=== PATIENT | male | born 1975 | race American Indian/Alaskan Native ===

== ENCOUNTER 2018-02-04 02:08 | Inpatient (IN) | payer SELFPAY ==
[2018-02-04 02:38] LABS: ADD MAN DIFF? NO
[2018-02-04 02:41] LABS: BASO # 0.2 x10^3/uL (0.0-0.2); BASO % 3 % (0-3); EOS % 0 % (0-3); HEMATOCRIT 43.5 % (39.0-53.0); HEMOGLOBIN 15.4 g/dL (13.0-17.5); LYMPH # 1.6 x10^3/uL (1.0-4.8); LYMPH % 30 % (24-48); MEAN CORPUSCULAR HEMOGLOBIN 33 pg (25-35); MEAN CORPUSCULAR HGB CONC 36 g/dL (31-37); MEAN CORPUSCULAR VOLUME 93 fL (79-100); MONO # 0.3 x10^3/uL (0.0-1.1); MONO % 5 % (0-9); NEUT # 3.4 x10^3uL (1.8-7.7); NEUT % 62 % (31-73); PLATELET COUNT 206 x10^3/uL (140-400); RED CELL DISTRIBUTION WIDTH 15.7 % (11.5-14.5); WHITE BLOOD COUNT 5.5 x10^3/uL (4.0-11.0)
[2018-02-04] MEDS: IV NORMAL SALINE 1000ML BAG 1,000 ML IV ×6 (02:48→17:13)
[2018-02-04] MEDS: THIAMINE 100 MG in IV NORMAL SALINE 50ML 50 ML IV (02:49)
[2018-02-04 02:50] LABS: ANION GAP 20 (6-14); BLOOD UREA NITROGEN 15 mg/dL (8-26); BUN/CREATININE RATIO 25 (6-20); CALCIUM 8.4 mg/dL (8.5-10.1); CARBON DIOXIDE 22 mmol/L (21-32); CHLORIDE 99 mmol/L (98-107); CREATININE 0.6 mg/dL (0.7-1.3); GFR 149.2; GLUCOSE 90 mg/dL (70-99); POTASSIUM 3.3 mmol/L (3.5-5.1); SODIUM 141 mmol/L (136-145)
[2018-02-04 02:57] LABS: TROPONINI < 0.017 ng/mL (0.000-0.055)
[2018-02-04 02:58] LABS: ALBUMIN 4.4 g/dL (3.4-5.0); ALBUMIN/GLOBULIN RATIO 1.2 (1.0-1.7); ALK PHOS 65 U/L (46-116); ALT (SGPT) 98 U/L (16-63); AST (SGOT) 99 U/L (15-37); TOTAL BILIRUBIN 1.3 mg/dL (0.2-1.0); TOTAL PROTEIN 8.1 g/dL (6.4-8.2)
[2018-02-04 03:01] LABS: ACETAMIN < 2 mcg/ml (10-30); ETHANOL 327 mg/dL (0-10); SALIC < 2.8 mg/dL (2.8-20.0)
[2018-02-04 03:02] LABS: AMPHETAMINE/METHAMPHETAMINE POS (NEG); BARBITURATES NEG (NEG); BENZODIAZEPINES NEG (NEG); CANNABINOIDS NEG (NEG); COCAINE NEG (NEG); ETHANOL, URINE POS (NEG); METHADONE NEG (NEG); OPIATES NEG (NEG); PHENCYCLIDINE NEG (NEG)
[2018-02-04] MEDS: POTASSIUM CHLORIDE 20 MEQ TABLET.ER. PO (07:49)
[2018-02-04] MEDS ORDERED: ONDANSETRON PF 4 MG/2 ML VIAL. IV (09:15)
[2018-02-04] MEDS ORDERED: ACETAMINOPHEN 325 MG TABLET. PO (09:15)
[2018-02-04] MEDS: chlordiazePOXIDE HCL 25 MG CAPSULE PO ×3 (09:55→21:20)
[2018-02-04 16:48] LABS: MAGNESIUM 1.6 mg/dL (1.8-2.4)
[2018-02-04] MEDS: MULTIVIT INFUSN,ADULT 4,VIT K 10 ML, THIAMINE 100 MG, FOLIC ACID 1 MG in IV DEXTROSE 5 ... IV (17:22)
[2018-02-04 20:47] LABS: POC GLUCOSE 148 mg/dL (70-99)
[2018-02-05] MEDS: IV NORMAL SALINE 1000ML BAG 1,000 ML IV (03:31)
[2018-02-05 05:03] LABS: ADD MAN DIFF? NO
[2018-02-05 05:15] LABS: BASO % 1 % (0-3); EOS # 0.1 x10^3/uL (0.0-0.7); EOS % 3 % (0-3); HEMOGLOBIN 14.4 g/dL (13.0-17.5); LYMPH # 1.7 x10^3/uL (1.0-4.8); LYMPH % 36 % (24-48); MEAN CORPUSCULAR HEMOGLOBIN 33 pg (25-35); MEAN CORPUSCULAR HGB CONC 35 g/dL (31-37); MEAN CORPUSCULAR VOLUME 92 fL (79-100); MONO # 0.4 x10^3/uL (0.0-1.1); MONO % 9 % (0-9); NEUT # 2.5 x10^3uL (1.8-7.7); NEUT % 52 % (31-73); PLATELET COUNT 180 x10^3/uL (140-400); RED BLOOD COUNT 4.44 x10^6/uL (4.30-5.70); RED CELL DISTRIBUTION WIDTH 14.5 % (11.5-14.5); WHITE BLOOD COUNT 4.9 x10^3/uL (4.0-11.0)
[2018-02-05] MEDS: chlordiazePOXIDE HCL 25 MG CAPSULE PO ×3 (05:21→15:40)
[2018-02-05 05:24] LABS: ANION GAP 6 (6-14); BLOOD UREA NITROGEN 8 mg/dL (8-26); CALCIUM 7.8 mg/dL (8.5-10.1); CARBON DIOXIDE 29 mmol/L (21-32); CHLORIDE 101 mmol/L (98-107); CREATININE 0.5 mg/dL (0.7-1.3); GFR 184.2; GLUCOSE 121 mg/dL (70-99); POTASSIUM 3.3 mmol/L (3.5-5.1); SODIUM 136 mmol/L (136-145)
[2018-02-05] MEDS: THIAMINE 100 MG TABLET. PO (08:24)
[2018-02-05] MEDS: MULTIVITAMIN with MINERAL TABLET. PO (08:24)
[2018-02-05] MEDS: FOLIC ACID 1 MG TABLET. PO (08:25)
[2018-02-05 09:32] LABS: PHOSPHORUS 3.2 mg/dL (2.6-4.7)
[2018-02-05 09:32] LABS: MAGNESIUM 1.4 mg/dL (1.8-2.4)
[2018-02-05 09:58] LABS: PLT ESTIMATE ADEQUATE (ADEQUATE)
[2018-02-05 10:32] LABS: POC GLUCOSE 91 mg/dL (70-99)
[2018-02-05] MEDS ORDERED: MORPHINE SULFATE 2 MG/ML DISP.SYRIN. IV (11:15)
[2018-02-05] MEDS ORDERED: DOCUSATE SODIUM 100 MG CAPSULE. PO (11:15)
[2018-02-05] MEDS ORDERED: hydrALAZINE 20 MG/ML VIAL. IVP (11:15)
[2018-02-05 11:21] LABS: POC GLUCOSE 169 mg/dL (70-99)
[2018-02-05] MEDS: MAGNESIUM SULFATE 4GM 100 ML IV (11:39)
[2018-02-05] MEDS ORDERED: DEXTROSE 50% 25 GM / 50ML DISP.SYRIN. IV (11:45)
[2018-02-05] MEDS: POTASSIUM CHLORIDE 20 MEQ TABLET.ER. PO (12:24)
[2018-02-05] MEDS: INSULIN LISPRO 300 UNITS/3 ML INSULN.PEN. SQ ×2 (12:29→17:07)
[2018-02-05] MEDS: ONDANSETRON PF 4 MG/2 ML VIAL. IV ×2 (14:17→20:10)
[2018-02-05] MEDS: ENOXAPARIN 40 MG/0.4 ML SYRINGE. SQ (15:41)
[2018-02-05 16:58] LABS: POC GLUCOSE 198 mg/dL (70-99)
[2018-02-05 20:57] LABS: POC GLUCOSE 147 mg/dL (70-99)
[2018-02-05] MEDS: traMADol 50 MG TABLET PO (23:52)
[2018-02-06 05:24] LABS: ADD MAN DIFF? NO
[2018-02-06 05:33] LABS: BASO # 0.1 x10^3/uL (0.0-0.2); BASO % 1 % (0-3); EOS # 0.1 x10^3/uL (0.0-0.7); EOS % 1 % (0-3); HEMATOCRIT 41.5 % (39.0-53.0); HEMOGLOBIN 14.5 g/dL (13.0-17.5); LYMPH # 1.2 x10^3/uL (1.0-4.8); LYMPH % 13 % (24-48); MEAN CORPUSCULAR HEMOGLOBIN 32 pg (25-35); MEAN CORPUSCULAR HGB CONC 35 g/dL (31-37); MEAN CORPUSCULAR VOLUME 93 fL (79-100); MONO # 0.5 x10^3/uL (0.0-1.1); MONO % 5 % (0-9); NEUT # 7.5 x10^3uL (1.8-7.7); NEUT % 81 % (31-73); PLATELET COUNT 162 x10^3/uL (140-400); RED BLOOD COUNT 4.49 x10^6/uL (4.30-5.70); RED CELL DISTRIBUTION WIDTH 14.8 % (11.5-14.5); WHITE BLOOD COUNT 9.3 x10^3/uL (4.0-11.0)
[2018-02-06 05:49] LABS: ANION GAP 6 (6-14); BLOOD UREA NITROGEN 9 mg/dL (8-26); CALCIUM 8.2 mg/dL (8.5-10.1); CARBON DIOXIDE 28 mmol/L (21-32); CHLORIDE 101 mmol/L (98-107); CREATININE 0.7 mg/dL (0.7-1.3); GFR 124.9; GLUCOSE 121 mg/dL (70-99); POTASSIUM 3.9 mmol/L (3.5-5.1); SODIUM 135 mmol/L (136-145)
[2018-02-06 05:53] LABS: MAGNESIUM 1.6 mg/dL (1.8-2.4)
[2018-02-06 07:50] LABS: POC GLUCOSE 131 mg/dL (70-99)
[2018-02-06] MEDS: INSULIN LISPRO 300 UNITS/3 ML INSULN.PEN. SQ ×3 (08:00→16:10)
[2018-02-06] MEDS: MULTIVITAMIN with MINERAL TABLET. PO (08:23)
[2018-02-06] MEDS: FOLIC ACID 1 MG TABLET. PO (08:23)
[2018-02-06] MEDS: THIAMINE 100 MG TABLET. PO (08:23)
[2018-02-06] MEDS: ACETAMINOPHEN 325 MG TABLET. PO ×2 (11:01→19:35)
[2018-02-06] MEDS: IV NORMAL SALINE 1000ML BAG 1,000 ML IV ×2 (11:03→20:51)
[2018-02-06] MEDS: MAGNESIUM SULFATE 2GM 50 ML IV (11:05)
[2018-02-06 11:49] LABS: POC GLUCOSE 205 mg/dL (70-99)
[2018-02-06] MEDS: ENOXAPARIN 40 MG/0.4 ML SYRINGE. SQ (15:43)
[2018-02-06] MEDS: MORPHINE SULFATE 4 MG/ML DISP.SYRIN. IV ×2 (15:44→20:53)
[2018-02-06 16:24] LABS: POC GLUCOSE 150 mg/dL (70-99)
[2018-02-06 20:47] LABS: BILIRUBIN,URINE NEGATIVE (NEG); CLARITY,URINE CLEAR; COLOR,URINE YELLOW; GLUCOSE,URINE NEGATIVE (NEG); NITRITE,URINE NEGATIVE (NEG); PROTEIN,URINE NEGATIVE (NEG-TRACE)
[2018-02-06 20:55] LABS: POC GLUCOSE 182 mg/dL (70-99)
[2018-02-06 21:00] LABS: BACTERIA,URINE 0 /HPF (0-FEW); RBC,URINE OCC /HPF (0-2)
[2018-02-07] MEDS: MORPHINE SULFATE 4 MG/ML DISP.SYRIN. IV ×4 (02:13→15:40)
[2018-02-07] MEDS: ACETAMINOPHEN 325 MG TABLET. PO (03:25)
[2018-02-07 06:14] LABS: ADD MAN DIFF? NO
[2018-02-07 06:37] LABS: BASO % 0 % (0-3); EOS # 0.1 x10^3/uL (0.0-0.7); EOS % 0 % (0-3); HEMATOCRIT 44.2 % (39.0-53.0); HEMOGLOBIN 15.6 g/dL (13.0-17.5); LYMPH # 1.3 x10^3/uL (1.0-4.8); LYMPH % 10 % (24-48); MEAN CORPUSCULAR HEMOGLOBIN 33 pg (25-35); MEAN CORPUSCULAR HGB CONC 35 g/dL (31-37); MEAN CORPUSCULAR VOLUME 92 fL (79-100); MONO # 0.8 x10^3/uL (0.0-1.1); MONO % 6 % (0-9); NEUT # 11.4 x10^3uL (1.8-7.7); NEUT % 84 % (31-73); PLATELET COUNT 157 x10^3/uL (140-400); RED CELL DISTRIBUTION WIDTH 14.7 % (11.5-14.5); WHITE BLOOD COUNT 13.6 x10^3/uL (4.0-11.0)
[2018-02-07 06:44] LABS: ALBUMIN 3.5 g/dL (3.4-5.0); ALK PHOS 75 U/L (46-116); ALT (SGPT) 60 U/L (16-63); ANION GAP 10 (6-14); AST (SGOT) 38 U/L (15-37); BLOOD UREA NITROGEN 5 mg/dL (8-26); CALCIUM 8.8 mg/dL (8.5-10.1); CARBON DIOXIDE 25 mmol/L (21-32); CHLORIDE 100 mmol/L (98-107); CREATININE 0.6 mg/dL (0.7-1.3); DIRECT BILIRUBIN 0.3 mg/dL (0.0-0.2); GFR 149.2; GLUCOSE 125 mg/dL (70-99); POTASSIUM 3.6 mmol/L (3.5-5.1); SODIUM 135 mmol/L (136-145); TOTAL BILIRUBIN 1.2 mg/dL (0.2-1.0); TOTAL PROTEIN 7.5 g/dL (6.4-8.2)
[2018-02-07 07:53] LABS: POC GLUCOSE 98 mg/dL (70-99)
[2018-02-07] MEDS: INSULIN LISPRO 300 UNITS/3 ML INSULN.PEN. SQ ×3 (08:00→16:39)
[2018-02-07] MEDS: FOLIC ACID 1 MG TABLET. PO (08:03)
[2018-02-07] MEDS: THIAMINE 100 MG TABLET. PO (08:03)
[2018-02-07] MEDS: MULTIVITAMIN with MINERAL TABLET. PO (08:03)
[2018-02-07] MEDS: IV NORMAL SALINE 1000ML BAG 1,000 ML IV (10:28)
[2018-02-07 11:21] LABS: POC GLUCOSE 189 mg/dL (70-99)
[2018-02-07 11:38] LABS: BILIRUBIN,URINE NEGATIVE (NEG); CLARITY,URINE CLEAR; COLOR,URINE YELLOW; GLUCOSE,URINE 250 mg/dL (NEG); NITRITE,URINE NEGATIVE (NEG); PH,URINE 6.5; PROTEIN,URINE NEGATIVE (NEG-TRACE)
[2018-02-07 11:51] LABS: BACTERIA,URINE FEW /HPF (0-FEW); RBC,URINE OCC /HPF (0-2); WBC,URINE 20-40 /HPF (0-4)
[2018-02-07] MEDS: ENOXAPARIN 40 MG/0.4 ML SYRINGE. SQ (13:52)
[2018-02-07] MEDS: PANTOPRAZOLE 40 MG TABLET.DR. PO (14:41)
[2018-02-07] MEDS: cefTRIAXone IV Push 1 GM VIAL. IVP (14:43)
[2018-02-07 16:38] LABS: POC GLUCOSE 118 mg/dL (70-99)
[2018-02-07] MEDS: LACTOBACILLUS RHAMNOSUS GG 1 CAPSULE. PO (21:21)
[2018-02-07 21:32] LABS: POC GLUCOSE 168 mg/dL (70-99)
[2018-02-08] MEDS: IV NORMAL SALINE 1000ML BAG 1,000 ML IV (02:00)
[2018-02-08 07:43] LABS: POC GLUCOSE 205 mg/dL (70-99)
[2018-02-08] MEDS: LACTOBACILLUS RHAMNOSUS GG 1 CAPSULE. PO (08:01)
[2018-02-08] MEDS: FOLIC ACID 1 MG TABLET. PO (08:01)
[2018-02-08] MEDS: PANTOPRAZOLE 40 MG TABLET.DR. PO (08:01)
[2018-02-08] MEDS: MULTIVITAMIN with MINERAL TABLET. PO (08:01)
[2018-02-08] MEDS: THIAMINE 100 MG TABLET. PO (08:01)
[2018-02-08] MEDS: MORPHINE SULFATE 4 MG/ML DISP.SYRIN. IV (08:02)
[2018-02-08] MEDS: INSULIN LISPRO 300 UNITS/3 ML INSULN.PEN. SQ ×2 (08:07→11:40)
[2018-02-08] MEDS ORDERED: ALPRAZolam 0.25 MG TABLET PO (09:30)
[2018-02-08] MEDS ORDERED: chlordiazePOXIDE HCL 25 MG CAPSULE PO (09:30)
[2018-02-08 11:33] LABS: POC GLUCOSE 135 mg/dL (70-99)
== END 2018-02-08 13:15 | disposition home or self-care (01) | DRG 690 ==
LOC: ER 02:08 → 6 SOUTH 08:56
DX: N39.0 Urinary tract infection, site not specified (principal); F10.231 Alcohol dependence with withdrawal delirium; F15.129 Other stimulant abuse with intoxication, unspecified; E83.42 Hypomagnesemia; E86.0 Dehydration; E87.6 Hypokalemia; E11.9 Type 2 diabetes mellitus without complications; F12.90 Cannabis use, unspecified, uncomplicated; R00.0 Tachycardia, unspecified; F41.9 Anxiety disorder, unspecified; G89.29 Other chronic pain; F17.200 Nicotine dependence, unspecified, uncomplicated; F32.9 Major depressive disorder, single episode, unspecified; I10 Essential (primary) hypertension; Z82.49 Family history of ischemic heart disease and other diseases of the circulatory system; Z88.8 Allergy status to other drugs, medicaments and biological substances; Z71.51 Drug abuse counseling and surveillance of drug abuser
CPT/HCPCS: 36415; 71045; 80048; 80053; 80076; 80307; 80329; 81001; 82962; 83735; 84100; 84484; 85025; 87040; 87086; 93005; 93306; 97162-GP; 97166-GO; 97530-GO; 97535-GO; 99406; G0480; J0696; J1650; J1815; J2060; J2270; J2405; J3475; J7030

== ENCOUNTER 2018-06-09 17:20 | Inpatient (IN) | payer SELFPAY ==
[~2018-06-09] VITALS: Ht 175.3 cm; Wt 85.7 kg
[~2018-06-09 17:20] MED LIST: ALPR0.254 PO; CHLO25CA9 PO; DIAZ5TAB PO; FOLI1TAB16 PO; LIDO700A39 TD; MAGN400T22 PO; METF500T16 PO; MULT1TAB90 PO; NAPR-683 PO; Pantoprazole PO; THIA100T22 PO; TRAM50TA PO; hydrocodone
[2018-06-09 17:41] LABS: BASO % 1 % (0-3); EOS # 0.1 x10^3/uL (0.0-0.7); EOS % 1 % (0-3); HEMATOCRIT 41.1 % (39.0-53.0); HEMOGLOBIN 14.7 g/dL (13.0-17.5); LYMPH # 1.9 x10^3/uL (1.0-4.8); LYMPH % 42 % (24-48); MEAN CORPUSCULAR HEMOGLOBIN 33 pg (25-35); MEAN CORPUSCULAR HGB CONC 36 g/dL (31-37); MEAN CORPUSCULAR VOLUME 91 fL (79-100); MONO # 0.3 x10^3/uL (0.0-1.1); MONO % 6 % (0-9); NEUT # 2.3 x10^3uL (1.8-7.7); NEUT % 51 % (31-73); PLATELET COUNT 214 x10^3/uL (140-400); RED BLOOD COUNT 4.52 x10^6/uL (4.30-5.70); RED CELL DISTRIBUTION WIDTH 13.7 % (11.5-14.5); WHITE BLOOD COUNT 4.5 x10^3/uL (4.0-11.0)
[2018-06-09] MEDS ORDERED: MULTIVIT INFUSN,ADULT 4,VIT K 10 ML, THIAMINE 100 MG, FOLIC ACID 1 MG in IV NORMAL SALI... IV ONE (17:45)
[2018-06-09 17:50] LABS: CREATININE 0.6 mg/dL (0.7-1.3); GFR 149.2; POTASSIUM 3.3 mmol/L (3.5-5.1)
[2018-06-09 17:56] LABS: ALBUMIN 4.2 g/dL (3.4-5.0); ALBUMIN/GLOBULIN RATIO 1.2 (1.0-1.7); TOTAL BILIRUBIN 0.8 mg/dL (0.2-1.0); TOTAL PROTEIN 7.7 g/dL (6.4-8.2)
[2018-06-09] MEDS ORDERED: ONDANSETRON PF 4 MG/2 ML VIAL. IV ONE (20:00)
[2018-06-09 20:22] LABS: BILIRUBIN,URINE NEGATIVE (NEG); CLARITY,URINE CLEAR; COLOR,URINE YELLOW; NITRITE,URINE NEGATIVE (NEG); PROTEIN,URINE NEGATIVE (NEG-TRACE); UROBILINOGEN,URINE 0.2 mg/dL (0.2 mg/dL)
[2018-06-09 20:34] LABS: BACTERIA,URINE 0 /HPF (0-FEW); RBC,URINE 0 /HPF (0-2); SQUAMOUS EPITHELIAL CELL,UR OCC /LPF; WBC,URINE RARE /HPF (0-4)
[2018-06-09 21:05] LABS: BARBITURATES NEG (NEG); BENZODIAZEPINES POS (NEG); CANNABINOIDS POS (NEG); COCAINE NEG (NEG); METHADONE NEG (NEG); OPIATES NEG (NEG); PHENCYCLIDINE NEG (NEG)
[2018-06-09 21:09] LABS: AMPHETAMINE/METHAMPHETAMINE POS (NEG)
[2018-06-09] MEDS ORDERED: ACETAMINOPHEN 325 MG TABLET. PO PRN (21:30)
[2018-06-09] MEDS ORDERED: diphenhydrAMINE 50 MG/ML VIAL IVP PRN (21:30)
[2018-06-09] MEDS ORDERED: HALOPERIDOL LACTATE 5 MG/ML VIAL. IVP PRN (21:30)
[2018-06-09] MEDS ORDERED: ONDANSETRON PF 4 MG/2 ML VIAL. IV PRN (21:30)
[2018-06-09] MEDS ORDERED: cloNIDine HCL 0.1 MG TABLET PO PRN (21:30)
[2018-06-09] MEDS ORDERED: LORazepam 1 MG TABLET PO PRN (21:30)
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
[2018-06-09] MEDS: IV NORMAL SALINE 1000ML BAG 1,000 ML IV SCH (23:26)
[2018-06-09 23:39] VITALS: BP 128/85
[2018-06-10 03:00] VITALS: BP 118/74
--- NOTE | 2018-06-10 06:22 | EKG ---
[facility] [address] [place] [address] Test Date: 2018-06-09 Test Time: 17:24:31 Pat Name: RADHA LIN Department: Room: 3 1 Gender: M Frame Wirer: RENALDO : 1975 Requested By: LUCILLE MUNROE Order Number: [id number] Reading MD: Efrem Sharp MD Measurements Intervals Combs Rate: 89 P: 59 WY: 154 QRS: 21 QRSD: 102 T: 25 QT: 360 QTc: 444 Interpretive Statements SINUS RHYTHM Electronically Signed On 06-14-2018 11:45:56 CDT by Efrem Sharp MD
[2018-06-10] MEDS: IV NORMAL SALINE 1000ML BAG 1,000 ML IV SCH ×2 (06:25→14:00)
[2018-06-10 07:30] VITALS: BP 125/80
[2018-06-10 07:40] LABS: BASO % 1 % (0-3); EOS # 0.2 x10^3/uL (0.0-0.7); EOS % 6 % (0-3); HEMATOCRIT 38.9 % (39.0-53.0); HEMOGLOBIN 13.6 g/dL (13.0-17.5); LYMPH # 1.4 x10^3/uL (1.0-4.8); LYMPH % 40 % (24-48); MEAN CORPUSCULAR HEMOGLOBIN 33 pg (25-35); MEAN CORPUSCULAR HGB CONC 35 g/dL (31-37); MEAN CORPUSCULAR VOLUME 93 fL (79-100); MONO # 0.2 x10^3/uL (0.0-1.1); MONO % 6 % (0-9); NEUT # 1.6 x10^3uL (1.8-7.7); NEUT % 46 % (31-73); PLATELET COUNT 210 x10^3/uL (140-400); RED BLOOD COUNT 4.18 x10^6/uL (4.30-5.70); RED CELL DISTRIBUTION WIDTH 13.9 % (11.5-14.5); WHITE BLOOD COUNT 3.4 x10^3/uL (4.0-11.0)
[2018-06-10 08:00] LABS: CREATININE 0.6 mg/dL (0.7-1.3); GFR 149.2; POTASSIUM 3.3 mmol/L (3.5-5.1)
[2018-06-10] MEDS ORDERED: MULTIVIT INFUSN,ADULT 4,VIT K 10 ML, THIAMINE 100 MG, FOLIC ACID 1 MG in IV NORMAL SALI... IV SCH (09:00)
[2018-06-10] MEDS ORDERED: ONDANSETRON PF 4 MG/2 ML VIAL. IV PRN (10:15)
[2018-06-10 12:02] VITALS: BP 132/76
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
[2018-06-10] MEDS: CITALOPRAM 10 MG TABLET. PO SCH (13:37)
[2018-06-10] MEDS: HYDROcodone/APAP 5/325MG 1 TAB TABLET PO PRN ×2 (14:21→20:42)
[2018-06-10 15:00] VITALS: BP 118/57
[2018-06-10 19:00] VITALS: BP 140/84
[2018-06-10] MEDS: LORazepam 1 MG TABLET PO PRN ×2 (19:18→20:42)
[2018-06-10 23:00] VITALS: BP 134/86
[2018-06-11 03:00] VITALS: BP 147/89
[2018-06-11 07:00] VITALS: BP 126/78
[2018-06-11] MEDS: CITALOPRAM 10 MG TABLET. PO SCH (08:20)
[2018-06-11] MEDS ORDERED: FOLIC ACID 1 MG TABLET. PO SCH (09:00)
[2018-06-11] MEDS ORDERED: THIAMINE 100 MG TABLET. PO SCH (09:00)
[2018-06-11] MEDS ORDERED: MULTIVITAMIN with MINERAL TABLET. PO SCH (09:00)
[2018-06-11 11:33] VITALS: BP 111/72
--- NOTE | 2018-06-11 11:51 | PDOC3 ---
Discharge Summary Visit Information Date of Admission: Jun 09, 2018 Date of Discharge: Jun 11, 2018 Admitting Diagnosis Comment: MAjor depressive disorder Past suicide attempts Suicidal ideation Anxiety/depression NOS Alcohol dependence/alcohol intoxication Mild hypokalemia Neutropenia in an alcoholic Final Diagnosis Problems Medical Problems: (1) Alcohol intoxication Status: Acute (2) Suicidal ideation Status: Acute Brief Hospital Course Allergies Allergies Coded Allergies Type Severity Reaction Last Updated Verified cyclobenzaprine HCl Allergy Intermediate rash 03/12/15 Yes Vital Signs Vital Signs Date Time Temp Pulse Resp B/P (MAP) Pulse Ox O2 Delivery O2 Flow Rate FiO2 06/11/18 11:33 98.0 74 16 111/72 (85) 97 Room Air 98.0 Lab Results Laboratory Tests Test 06/09/18 17:33 06/09/18 20:15 06/10/18 07:04 06/10/18 21:47 White Blood Count 4.5 x10^3/uL (4.0-11.0) 3.4 x10^3/uL (4.0-11.0) Red Blood Count 4.52 x10^6/uL (4.30-5.70) 4.18 x10^6/uL (4.30-5.70) Hemoglobin 14.7 g/dL (13.0-17.5) 13.6 g/dL (13.0-17.5) Hematocrit 41.1 % (39.0-53.0) 38.9 % (39.0-53.0) Mean Corpuscular Volume 91 fL (79-100) 93 fL (79-100) Mean Corpuscular Hemoglobin 33 pg (25-35) 33 pg (25-35) Mean Corpuscular Hemoglobin Concent 36 g/dL (31-37) 35 g/dL (31-37) Red Cell Distribution Width 13.7 % (11.5-14.5) 13.9 % (11.5-14.5) Platelet Count 214 x10^3/uL (140-400) 210 x10^3/uL (140-400) Neutrophils (%) (Auto) 51 % (31-73) 46 % (31-73) Lymphocytes (%) (Auto) 42 % (24-48) 40 % (24-48) Monocytes (%) (Auto) 6 % (0-9) 6 % (0-9) Eosinophils (%) (Auto) 1 % (0-3) 6 % (0-3) Basophils (%) (Auto) 1 % (0-3) 1 % (0-3) Neutrophils # (Auto) 2.3 x10^3uL (1.8-7.7) 1.6 x10^3uL (1.8-7.7) Lymphocytes # (Auto) 1.9 x10^3/uL (1.0-4.8) 1.4 x10^3/uL (1.0-4.8) Monocytes # (Auto) 0.3 x10^3/uL (0.0-1.1) 0.2 x10^3/uL (0.0-1.1) Eosinophils # (Auto) 0.1 x10^3/uL (0.0-0.7) 0.2 x10^3/uL (0.0-0.7) Basophils # (Auto) 0.0 x10^3/uL (0.0-0.2) 0.0 x10^3/uL (0.0-0.2) Sodium Level 141 mmol/L (136-145) 140 mmol/L (136-145) Potassium Level 3.3 mmol/L (3.5-5.1) 3.3 mmol/L (3.5-5.1) Chloride Level 106 mmol/L (98-107) 103 mmol/L (98-107) Carbon Dioxide Level 27 mmol/L (21-32) 28 mmol/L (21-32) Anion Gap 8 (6-14) 9 (6-14) Blood Urea Nitrogen 9 mg/dL (8-26) 8 mg/dL (8-26) Creatinine 0.6 mg/dL (0.7-1.3) 0.6 mg/dL (0.7-1.3) Estimated GFR (Cockcroft-Gault) 149.2 149.2 BUN/Creatinine Ratio 15 (6-20) Glucose Level 102 mg/dL (70-99) 125 mg/dL (70-99) Calcium Level 9.0 mg/dL (8.5-10.1) 8.0 mg/dL (8.5-10.1) Total Bilirubin 0.8 mg/dL (0.2-1.0) Direct Bilirubin 0.2 mg/dL (0.0-0.2) Aspartate Amino Transf (AST/SGOT) 52 U/L (15-37) Alanine Aminotransferase (ALT/SGPT) 59 U/L (16-63) Alkaline Phosphatase 84 U/L (46-116) Total Protein 7.7 g/dL (6.4-8.2) Albumin 4.2 g/dL (3.4-5.0) Albumin/Globulin Ratio 1.2 (1.0-1.7) Ethyl Alcohol Level 263 mg/dL (0-10) Urine Collection Type Unknown Urine Color Yellow Urine Clarity Clear Urine pH 6.0 Urine Specific [place] 1.015 Urine Protein Negative mg/dL (NEG-TRACE) Urine Glucose (UA) Negative mg/dL (NEG) Urine Ketones (Stick) Trace mg/dL (NEG) Urine Blood Negative (NEG) Urine Nitrite Negative (NEG) Urine Bilirubin Negative (NEG) Urine Urobilinogen Dipstick 0.2 mg/dL (0.2 mg/dL) Urine Leukocyte Esterase Negative (NEG) Urine RBC 0 /HPF (0-2) Urine WBC Rare /HPF (0-4) Urine Squamous Epithelial Cells Occ /LPF Urine Bacteria 0 /HPF (0-FEW) Urine Mucus Slight /LPF Urine Opiates Screen Neg (NEG) Urine Methadone Screen Neg (NEG) Urine Barbiturates Neg (NEG) Urine Phencyclidine Screen Neg (NEG) Urine Amphetamine/Methamphetamine Pos (NEG) Urine Benzodiazepines Screen Pos (NEG) Urine Cocaine Screen Neg (NEG) Urine Cannabinoids Screen Pos (NEG) Urine Ethyl Alcohol Pos (NEG) Glucose (Fingerstick) 116 mg/dL (70-99) Test 06/11/18 07:39 Glucose (Fingerstick) 114 mg/dL (70-99) Laboratory Tests Test 06/10/18 21:47 06/11/18 07:39 Glucose (Fingerstick) 116 mg/dL (70-99) 114 mg/dL (70-99) Brief Hospital Course Mr. Calderon is a 42 old American male who apparently has been here multiple times for alcohol intoxication. He does have history of suicide ideation. Cleared from [facility] for no inpatient psych. We are waiting for PT OT , if gait steady home today. Does not need any prescription. Alcohol levels were elevated, spent 24-48 hrs. with us on CIWA protocol and banana bag. Ready medically ready for discharge later if gait steady Discussed with RN Seen and examined Discharge Information Condition at Discharge: Improved, Stable Disposition/Orders: D/C to Home Scheduled Folic Acid (Folic Acid) 1 Mg Tablet, 1 MG PO DAILY for 30 Days, #30 Prescribed by: ROSY OQUENDO on 02/08/18 1219 Lidocaine (Lidocaine) 1 Each Adh..patch, 1 PATCH TD DAILY, #5 Prescribed by: NESHA RICKS MD on 04/27/18 1054 Magnesium Oxide (Mag-Oxide) 400 Mg Tablet, 400 MG PO DAILY, #5 Prescribed by: NESHA RICKS MD on 04/27/18 1054 Multivits,Ca,Minerals/Iron/Fa (Thera-M Tablet) 1 Each Tablet, 1 TAB PO DAILY for 30 Days, #30 Prescribed by: ROSY OQUENDO on 02/08/18 1219 Thiamine Mononitrate (Vitamin B-1) 100 Mg Tablet, 100 MG PO DAILY for 30 Days, # 30 Prescribed by: ROSY OQUENDO on 02/08/18 1219 [Pantoprazole] 40 MG TABLET.DR, 40 MG PO DAILYAC for 30 Days Prescribed by: ROSY OQUENDO on 02/08/18 1219 Scheduled PRN Alprazolam (Alprazolam) 0.25 Mg Tablet, 0.25 MG PO PRN Q8HRS PRN for ANXIETY / AGITATION, [facility], #10 Prescribed by: NESHA RICKS MD on 04/27/18 1054 Tramadol Hcl (Tramadol Hcl) 50 Mg Tablet, 50 MG PO PRN Q6HRS PRN for MILD TO MODERATE PAIN, #10 Prescribed by: NESHA RICKS MD on 04/27/18 1054 ROSY OQUENDO MD Jun 11, 2018 11:51
== END 2018-06-11 15:00 | disposition home or self-care (01) | DRG 641 ==
LOC: ER 17:20 → 6 SOUTH 21:25
PROVIDERS: ADMIT Family Medicine; ATTEND Family Medicine
DX: E87.6 Hypokalemia (principal); R45.851 Suicidal ideations; D70.9 Neutropenia, unspecified; E11.9 Type 2 diabetes mellitus without complications; F10.229 Alcohol dependence with intoxication, unspecified; F32.9 Major depressive disorder, single episode, unspecified; F41.9 Anxiety disorder, unspecified; G89.29 Other chronic pain; F12.90 Cannabis use, unspecified, uncomplicated; W19.XXXA Unspecified fall, initial encounter; I10 Essential (primary) hypertension; Z91.5 Personal history of self-harm; Y93.89 Activity, other specified; Y92.098 Other place in other non-institutional residence as the place of occurrence of the external cause; Y99.8 Other external cause status; Z88.8 Allergy status to other drugs, medicaments and biological substances; Z87.891 Personal history of nicotine dependence
CPT/HCPCS: 36415; 80048; 80053; 80307; 81001; 82248; 82962; 85025; 93005; 96365; 96375; G0480; J2060; J2405; J7030; 99285-25; G0479

== ENCOUNTER 2019-10-12 09:40 | Emergency (ER) | payer SELFPAY ==
[~2019-10-12] VITALS: Ht 175.3 cm; Wt 90.7 kg
[~2019-10-12 09:40] MED LIST changes: +CIPR250T30 PO; +CITA20TA9 PO; +CLON0.1T12 PO; +LIDO700A21 TD; -LIDO700A39 TD; +LORA-434 PO; +MELA3TAB56 PO; +QUET100T4 PO
[2019-10-12] MEDS ORDERED: ONDANSETRON PF 4 MG/2 ML VIAL. IV ONE (10:00)
[2019-10-12] MEDS ORDERED: MULTIVIT INFUSN,ADULT 4,VIT K 10 ML, THIAMINE INJ 100 MG, FOLIC ACID INJ 1 MG in IV NOR... IV ONE (10:30)
[2019-10-12 10:33] LABS: BASO # 0.1 x10^3/uL (0.0-0.2); BASO % 2 % (0-3); EOS # 0.1 x10^3/uL (0.0-0.7); EOS % 2 % (0-3); HEMATOCRIT 45.6 % (39.0-53.0); HEMOGLOBIN 15.5 g/dL (13.0-17.5); LYMPH # 2.5 x10^3/uL (1.0-4.8); LYMPH % 44 % (24-48); MEAN CORPUSCULAR HEMOGLOBIN 32 pg (25-35); MEAN CORPUSCULAR HGB CONC 34 g/dL (31-37); MEAN CORPUSCULAR VOLUME 93 fL (79-100); MONO # 0.3 x10^3/uL (0.0-1.1); MONO % 5 % (0-9); NEUT # 2.8 x10^3/uL (1.8-7.7); NEUT % 48 % (31-73); PLATELET COUNT 262 x10^3/uL (140-400); RED BLOOD COUNT 4.92 x10^6/uL (4.30-5.70); RED CELL DISTRIBUTION WIDTH 15.3 % (11.5-14.5); WHITE BLOOD COUNT 5.8 x10^3/uL (4.0-11.0)
[2019-10-12 10:41] LABS: CALCIUM 8.2 mg/dL (8.5-10.1); CREATININE 0.6 mg/dL (0.7-1.3); GFR 147.8; POTASSIUM 3.2 mmol/L (3.5-5.1)
[2019-10-12 10:47] LABS: ALBUMIN 4.2 g/dL (3.4-5.0); DIRECT BILIRUBIN 0.1 mg/dL (0.0-0.2); MAGNESIUM 1.5 mg/dL (1.8-2.4); TOTAL BILIRUBIN 0.5 mg/dL (0.2-1.0); TOTAL PROTEIN 7.8 g/dL (6.4-8.2)
[2019-10-12] MEDS ORDERED: FAMOTIDINE 20 MG/2 ML VIAL IVP ONE (11:30)
[2019-10-12] MEDS ORDERED: POTASSIUM CHLORIDE 20 MEQ TABLET.ER. PO ONE (11:30)
[2019-10-12 12:17] LABS: BILIRUBIN,URINE NEGATIVE (NEG); CLARITY,URINE CLEAR; COLOR,URINE YELLOW; NITRITE,URINE NEGATIVE (NEG); PH,URINE 5.5; PROTEIN,URINE 30 mg/dL (NEG-TRACE)
[2019-10-12 12:23] LABS: BARBITURATES NEG (NEG); BENZODIAZEPINES NEG (NEG); CANNABINOIDS POS (NEG); COCAINE NEG (NEG); METHADONE NEG (NEG); OPIATES NEG (NEG); PHENCYCLIDINE NEG (NEG)
[2019-10-12 12:26] LABS: SQUAMOUS EPITHELIAL CELL,UR OCC /LPF
[2019-10-12 12:27] LABS: AMORPHOUS SEDIMENT,UR PRESENT /HPF; BACTERIA,URINE FEW /HPF (0-FEW)
[2019-10-12 12:42] LABS: AMPHETAMINE/METHAMPHETAMINE POS (NEG)
--- NOTE | 2019-10-12 13:32 | PHYS DOC ---
Past Medical History Past Medical History: Alcoholism, Anxiety, Depression, Diabetes-Type II, Hypertension, Other Additional Past Medical Histor: chronic pain, PTSD Past Surgical History: Other Additional Past Surgical Histo: abd surgery with colostomy and take down later (due to injury) Additional Information: 2 ppd Alcohol Use: Heavy Additional Information: 3 liters daily-vodka Drug Use: Marijuana, Methamphetamine Social History Narrative: last used meth 2 days ago Adult General Chief Complaint Chief Complaint: ALCOHOL INTOXICATION HPI HPI Patient is a 44-year-old male who presents with complaint of abdominal pain and nausea and states that he has been drinking alcohol fairly heavily, stating that he has drank 3x 750ml bottles of alcohol in the last 24 hours. Patient reports that he feels very depressed and suffers from PTSD after service in [place]. Patient does indicate that he has pain in his lower abdomen that he rates at a 10 out of 10. He admits to nausea but has not had any vomiting.[] Review of Systems Review of Systems Constitutional: Denies fever or chills [] Respiratory: Denies cough or shortness of breath [] Cardiovascular: No additional information not addressed in HPI [] GI: Complains of abdominal pain with nausea. Denies vomiting or diarrhea [] Integument: Denies rash or skin lesions [] Neurologic: Denies headache, focal weakness or sensory changes [] A full review of systems has been reviewed and is otherwise negative. Current Medications Current Medications Current Medications Medications (Trade) Dose Ordered Sig/Negin Start Time Stop Time Status Last Admin Dose Admin Famotidine (Pepcid Vial) 20 mg 1X ONCE 10/12/19 11:30 10/12/19 11:31 DC 10/12/19 11:40 20 MG Lorazepam (Ativan Inj) 1 mg 1X ONCE 10/12/19 10:00 10/12/19 10:01 DC 10/12/19 10:21 1 MG Multivitamins 10 ml/Thiamine HCl 100 mg/Folic Acid 1 mg/Sodium Chloride 1,011.2 ml @ 1,000 mls/ hr 1X ONCE 10/12/19 10:30 10/12/19 11:30 DC 10/12/19 10:21 1,000 MLS/HR Ondansetron HCl (Zofran) 4 mg 1X ONCE 10/12/19 10:00 10/12/19 10:01 DC 10/12/19 10:20 4 MG Potassium Chloride (Klor-Con) 40 meq 1X ONCE 10/12/19 11:30 10/12/19 11:32 DC 10/12/19 11:41 40 MEQ Allergies Allergies Allergies Coded Allergies Type Severity Reaction Last Updated Verified cyclobenzaprine HCl Allergy Intermediate rash 03/12/15 Yes Physical Exam Physical Exam Constitutional: Well developed, well nourished, no acute distress, non-toxic appearance. [] HENT: Normocephalic, atraumatic, bilateral external ears normal, oropharynx mo ist, no oral exudates, nose normal. [] Eyes: PERRLA, EOMI, conjunctiva normal, no discharge. [] Neck: Normal range of motion, no tenderness, supple, no stridor. [] Cardiovascular: Regular rate and rhythm[] Lungs & Thorax: Bilateral breath sounds clear to auscultation [] Abdomen: Bowel sounds normal, soft, with periumbilical tenderness. [] Skin: Warm, dry, no erythema, no rash. [] Extremities: No tenderness, no cyanosis, no clubbing, ROM intact, no edema. [] Neurologic: Alert and oriented X 3, no focal deficits noted. [] Current Patient Data Vital Signs Vital Signs Date Time Temp Pulse Resp B/P (MAP) Pulse Ox O2 Delivery O2 Flow Rate FiO2 10/12/19 13:43 104 131/68 (89) 93 Room Air 10/12/19 09:40 98.5 20 98.5 Lab Values Laboratory Tests Test 10/12/19 10:10 10/12/19 12:10 10/12/19 13:16 White Blood Count 5.8 x10^3/uL (4.0-11.0) Red Blood Count 4.92 x10^6/uL (4.30-5.70) Hemoglobin 15.5 g/dL (13.0-17.5) Hematocrit 45.6 % (39.0-53.0) Mean Corpuscular Volume 93 fL (79-100) Mean Corpuscular Hemoglobin 32 pg (25-35) Mean Corpuscular Hemoglobin Concent 34 g/dL (31-37) Red Cell Distribution Width 15.3 % (11.5-14.5) H Platelet Count 262 x10^3/uL (140-400) Neutrophils (%) (Auto) 48 % (31-73) Lymphocytes (%) (Auto) 44 % (24-48) Monocytes (%) (Auto) 5 % (0-9) Eosinophils (%) (Auto) 2 % (0-3) Basophils (%) (Auto) 2 % (0-3) Neutrophils # (Auto) 2.8 x10^3/uL (1.8-7.7) Lymphocytes # (Auto) 2.5 x10^3/uL (1.0-4.8) Monocytes # (Auto) 0.3 x10^3/uL (0.0-1.1) Eosinophils # (Auto) 0.1 x10^3/uL (0.0-0.7) Basophils # (Auto) 0.1 x10^3/uL (0.0-0.2) Sodium Level 143 mmol/L (136-145) Potassium Level 3.2 mmol/L (3.5-5.1) L Chloride Level 103 mmol/L (98-107) Carbon Dioxide Level 29 mmol/L (21-32) Anion Gap 11 (6-14) Blood Urea Nitrogen 19 mg/dL (8-26) Creatinine 0.6 mg/dL (0.7-1.3) L Estimated GFR (Cockcroft-Gault) 147.8 Glucose Level 165 mg/dL (70-99) H Calcium Level 8.2 mg/dL (8.5-10.1) L Magnesium Level 1.5 mg/dL (1.8-2.4) L Total Bilirubin 0.5 mg/dL (0.2-1.0) Direct Bilirubin 0.1 mg/dL (0.0-0.2) Aspartate Amino Transferase (AST) 61 U/L (15-37) H Alanine Aminotransferase (ALT) 86 U/L (16-63) H Alkaline Phosphatase 99 U/L (46-116) Total Protein 7.8 g/dL (6.4-8.2) Albumin 4.2 g/dL (3.4-5.0) Ethyl Alcohol Level 402 mg/dL (0-10) *H 314 mg/dL (0-10) H Urine Collection Type U cath Urine Color Yellow Urine Clarity Clear Urine pH 5.5 Urine Specific [place] >=1.030 Urine Protein 30 mg/dL (NEG-TRACE) Urine Glucose (UA) 250 mg/dL (NEG) Urine Ketones (Stick) Negative mg/dL (NEG) Urine Blood Trace (NEG) Urine Nitrite Negative (NEG) Urine Bilirubin Negative (NEG) Urine Urobilinogen Dipstick 1.0 mg/dL (0.2 mg/dL) Urine Leukocyte Esterase Negative (NEG) Urine RBC 6-10 /HPF (0-2) Urine WBC 5-10 /HPF (0-4) Urine Squamous Epithelial Cells Occ /LPF Urine Amorphous Sediment Present /HPF Urine Bacteria Few /HPF (0-FEW) Urine Mucus Marked /LPF Urine Opiates Screen Neg (NEG) Urine Methadone Screen Neg (NEG) Urine Barbiturates Neg (NEG) Urine Phencyclidine Screen Neg (NEG) Urine Amphetamine/Methamphetamine Pos (NEG) Urine Benzodiazepines Screen Neg (NEG) Urine Cocaine Screen Neg (NEG) Urine Cannabinoids Screen Pos (NEG) Urine Ethyl Alcohol Pos (NEG) Laboratory Tests 10/12/19 10:10 Laboratory Tests 10/12/19 10:10 EKG EKG [] Radiology/Procedures Radiology/Procedures [] Course & Med Decision Making Course & Med Decision Making Pertinent Labs and Imaging studies reviewed. (See chart for details) [] Dragon Disclaimer Dragon Disclaimer This electronic medical record was generated, in whole or in part, using a voice recognition dictation system. Departure Departure Impression: Primary Impression: Alcohol intoxication Additional Impressions: Chronic alcoholism Depression Disposition: 01 HOME, SELF-CARE Condition: STABLE Referrals: NO PCP (PCP) Patient Instructions: Alcohol Intoxication, Chronic Alcoholism, Depression, Adult Problem Qualifiers Primary Impression: Alcohol intoxication Complication of substance-induced condition: uncomplicated Qualified Codes: F10.920 - Alcohol use, unspecified with intoxication, uncomplicated Additional Impressions: Depression Depression Type: unspecified Qualified Codes: F32.9 - Major depressive disorder, single episode, unspecified BUDDY JUAREZ Jr. DO Oct 12, 2019 13:32
[2019-10-12 13:43] VITALS: BP 131/68
== END 2019-10-12 16:38 | disposition home or self-care (01) ==
LOC: ER 09:40
DX: F10.229 Alcohol dependence with intoxication, unspecified (principal); F12.90 Cannabis use, unspecified, uncomplicated; R11.0 Nausea; R10.33 Periumbilical pain; F13.90 Sedative, hypnotic, or anxiolytic use, unspecified, uncomplicated; F41.9 Anxiety disorder, unspecified; F10.20 Alcohol dependence, uncomplicated; F32.9 Major depressive disorder, single episode, unspecified; E11.9 Type 2 diabetes mellitus without complications; I10 Essential (primary) hypertension; G89.29 Other chronic pain; F43.10 Post-traumatic stress disorder, unspecified; F17.200 Nicotine dependence, unspecified, uncomplicated; Z98.890 Other specified postprocedural states; Z79.899 Other long term (current) drug therapy; Y90.8 Blood alcohol level of 240 mg/100 ml or more
CPT/HCPCS: 36415; 80048; 80076; 80307; 81001; 83735; 85025; 87086; 96365; 96375; 99284; G0480; J2060; J2405; J3490; J7030

== ENCOUNTER 2019-12-27 03:17 | Inpatient (IN) | payer SELFPAY ==
[~2019-12-27] VITALS: Ht 175.3 cm; Wt 88.2 kg
[~2019-12-27 03:17] MED LIST changes: +MELA3TAB4 PO; -MELA3TAB56 PO
--- NOTE | 2019-12-27 03:28 | PHYS DOC ---
Past Medical History Past Medical History: Alcoholism, Anxiety, Depression, Diabetes-Type II, Hypertension, Other Additional Past Medical Histor: chronic pain, PTSD Past Surgical History: Other Additional Past Surgical Histo: abd surgery with colostomy and take down later (due to injury) Smoking Status: Current Every Day Smoker Alcohol Use: Heavy Drug Use: Marijuana, Methamphetamine Adult General Chief Complaint Chief Complaint: ALCOHOL INTOXICATION HPI HPI Patient is a 44 year old male who is brought in by EMS secondary to alcohol intoxication and nausea with vomiting. Patient reports drinking daily for the past week; 1/5/day. He also admits to using methamphetamine today. States he wants to go through detox but in the past has had withdrawal seizures. Is requesting assistance. States he was at approximately 1 month ago and went through detox but could not quit once he left. Denies SI or HI Review of Systems Review of Systems All other systems were reviewed and found to be within normal limits, except as documented in this note. Current Medications Current Medications Current Medications Medications (Trade) Dose Ordered Sig/Negin Start Time Stop Time Status Last Admin Dose Admin Ondansetron HCl (Zofran) 4 mg 1X ONCE 12/27/19 04:00 12/27/19 04:01 DC 12/27/19 03:48 4 MG Sodium Chloride 1,000 ml @ 1,000 mls/hr 1X ONCE 12/27/19 04:00 12/27/19 04:59 DC 12/27/19 03:52 1,000 MLS/HR Thiamine HCl 100 mg/Dextrose 51 ml @ 102 mls/hr 1X ONCE 12/27/19 04:00 12/27/19 04:29 DC 12/27/19 03:49 102 MLS/HR Allergies Allergies Allergies Coded Allergies Type Severity Reaction Last Updated Verified cyclobenzaprine HCl Allergy Intermediate rash 03/12/15 Yes Physical Exam Physical Exam Constitutional: Well developed, well nourished, anxious, depressed, non-toxic appearance. [] HENT: Normocephalic, atraumatic, bilateral external ears normal, oropharynx moist, no oral exudates, nose normal. [] Eyes: PERRLA, EOMI, conjunctiva normal, no discharge. [] Neck: Normal range of motion, no tenderness, supple, no stridor. [] Cardiovascular: Tachycardic, no murmur [] Lungs & Thorax: Bilateral breath sounds clear to auscultation [] Abdomen: Bowel sounds normal, soft, no tenderness, no masses, no pulsatile masses. [] Skin: Warm, dry, no erythema, no rash. [] Back: No tenderness, no CVA tenderness. [] Extremities: No tenderness, no cyanosis, no clubbing, ROM intact, no edema. [] Neurologic: Alert and oriented X 3, no focal deficits noted. [] Psychologic: No SI or HI Current Patient Data Vital Signs Vital Signs Date Time Temp Pulse Resp B/P (MAP) Pulse Ox O2 Delivery O2 Flow Rate FiO2 12/27/19 04:45 98 19 94 12/27/19 04:30 129/64 (85) 12/27/19 03:30 98.3 98.3 12/27/19 03:20 Room Air Lab Values Laboratory Tests Test 12/27/19 03:35 White Blood Count 5.1 x10^3/uL (4.0-11.0) Red Blood Count 4.71 x10^6/uL (4.30-5.70) Hemoglobin 14.7 g/dL (13.0-17.5) Hematocrit 42.7 % (39.0-53.0) Mean Corpuscular Volume 91 fL (79-100) Mean Corpuscular Hemoglobin 31 pg (25-35) Mean Corpuscular Hemoglobin Concent 35 g/dL (31-37) Red Cell Distribution Width 14.6 % (11.5-14.5) H Platelet Count 285 x10^3/uL (140-400) Neutrophils (%) (Auto) 33 % (31-73) Lymphocytes (%) (Auto) 57 % (24-48) H Monocytes (%) (Auto) 6 % (0-9) Eosinophils (%) (Auto) 1 % (0-3) Basophils (%) (Auto) 3 % (0-3) Neutrophils # (Auto) 1.7 x10^3/uL (1.8-7.7) L Lymphocytes # (Auto) 2.9 x10^3/uL (1.0-4.8) Monocytes # (Auto) 0.3 x10^3/uL (0.0-1.1) Eosinophils # (Auto) 0.0 x10^3/uL (0.0-0.7) Basophils # (Auto) 0.1 x10^3/uL (0.0-0.2) Sodium Level 146 mmol/L (136-145) H Potassium Level 3.6 mmol/L (3.5-5.1) Chloride Level 105 mmol/L (98-107) Carbon Dioxide Level 29 mmol/L (21-32) Anion Gap 12 (6-14) Blood Urea Nitrogen 13 mg/dL (8-26) Creatinine 0.7 mg/dL (0.7-1.3) Estimated GFR (Cockcroft-Gault) 123.7 BUN/Creatinine Ratio 19 (6-20) Glucose Level 133 mg/dL (70-99) H Calcium Level 8.9 mg/dL (8.5-10.1) Total Bilirubin 0.8 mg/dL (0.2-1.0) Aspartate Amino Transferase (AST) 91 U/L (15-37) H Alanine Aminotransferase (ALT) 231 U/L (16-63) H Alkaline Phosphatase 101 U/L (46-116) Total Protein 7.6 g/dL (6.4-8.2) Albumin 4.2 g/dL (3.4-5.0) Albumin/Globulin Ratio 1.2 (1.0-1.7) Ethyl Alcohol Level 312 mg/dL (0-10) H Laboratory Tests 12/27/19 03:35 Laboratory Tests 12/27/19 03:35 EKG EKG [] Radiology/Procedures Radiology/Procedures [] Course & Med Decision Making Course & Med Decision Making Pertinent Labs and Imaging studies reviewed. (See chart for details) 0527: Patient seen for alcohol and drug use and is requesting detox. PAT team came and evaluated him and is unable to find placement at this time. Given his history of seizures will admit for withdrawal/detox and continue to search for placement. Dragon Disclaimer Dragon Disclaimer This electronic medical record was generated, in whole or in part, using a voice recognition dictation system. Departure Departure Impression: Primary Impression: Alcohol intoxication Additional Impressions: Methamphetamine abuse Desire for detoxification Disposition: 09 ADMITTED INPATIENT Admitting Physician: ALO Condition: STABLE Referrals: NO PCP (PCP) Problem Qualifiers CHANTAL GOEL DO Dec 27, 2019 03:28
[2019-12-27 03:41] LABS: BASO # 0.1 x10^3/uL (0.0-0.2); BASO % 3 % (0-3); EOS % 1 % (0-3); HEMATOCRIT 42.7 % (39.0-53.0); HEMOGLOBIN 14.7 g/dL (13.0-17.5); LYMPH # 2.9 x10^3/uL (1.0-4.8); LYMPH % 57 % (24-48); MEAN CORPUSCULAR HEMOGLOBIN 31 pg (25-35); MEAN CORPUSCULAR HGB CONC 35 g/dL (31-37); MEAN CORPUSCULAR VOLUME 91 fL (79-100); MONO # 0.3 x10^3/uL (0.0-1.1); MONO % 6 % (0-9); NEUT # 1.7 x10^3/uL (1.8-7.7); NEUT % 33 % (31-73); PLATELET COUNT 285 x10^3/uL (140-400); RED BLOOD COUNT 4.71 x10^6/uL (4.30-5.70); RED CELL DISTRIBUTION WIDTH 14.6 % (11.5-14.5); WHITE BLOOD COUNT 5.1 x10^3/uL (4.0-11.0)
[2019-12-27 03:48] LABS: CALCIUM 8.9 mg/dL (8.5-10.1); CREATININE 0.7 mg/dL (0.7-1.3); GFR 123.7; POTASSIUM 3.6 mmol/L (3.5-5.1)
[2019-12-27 03:54] LABS: ALBUMIN 4.2 g/dL (3.4-5.0); ALBUMIN/GLOBULIN RATIO 1.2 (1.0-1.7); TOTAL BILIRUBIN 0.8 mg/dL (0.2-1.0); TOTAL PROTEIN 7.6 g/dL (6.4-8.2)
[2019-12-27] MEDS ORDERED: THIAMINE INJ 100 MG in IV DEXTROSE 5% 50 ML IV ONE (04:00)
[2019-12-27] MEDS ORDERED: IV NORMAL SALINE 1000ML BAG 1,000 ML IV ONE ×2 (04:00)
[2019-12-27] MEDS ORDERED: ONDANSETRON PF 4 MG/2 ML VIAL. IVP ONE (04:00)
[2019-12-27] MEDS ORDERED: ONDANSETRON PF 4 MG/2 ML VIAL. IV PRN (05:30)
[2019-12-27] MEDS ORDERED: chlordiazePOXIDE HCL 25 MG CAPSULE PO PRN ×2 (05:30)
[2019-12-27 08:00] VITALS: BP 105/61
--- NOTE | 2019-12-27 09:59 | NUR ---
GENTRY following. Discussed with RN, pt being seen by the [facility] team today. [facility]ENTRY will continue to follow. Addendum: 12/27/19 at 1342 by THEODORE RINALDI Alexandra from [facility] team apparently tried to meet with pt this morning at 0500, however pt's alcohol level was too high. Per Alexandra, pt has a hx of seizures. Alexandra advised pt was difficult to rouse this afternoon so will come back tomorrow (12/28/2019). Alexandra reported there are no social detox beds available as they are halving them due to COVID-19. Alexandra reported pt has a brother in [place], and she provided resources for [employer] services. GENTRY will continue to follow. RN notified.
--- NOTE | 2019-12-27 10:33 | PDOC1 ---
History and Physical Date of Admission Date of Admission DATE: 12/27/19 TIME: 10:32 Identification/Chief Complaint Chief Complaint seen in er , 44 year old male who is brought in by EMS secondary to alcohol intoxication and nausea with vomiting. reports drinking daily for the past week; 1/5/day. //using methamphetamine today. in the past has had withdrawal seizures. Is requesting assistance. States he was at [facility] approximately 1 month ago and went through detox but could not quit once he left. Denies SI or HI Past Medical History Past Medical History Past Medical History Past Medical History: Alcoholism, Anxiety, Depression, Diabetes-Type II, Hypertension, Other Additional Past Medical Histor: chronic pain, PTSD Past Surgical History: Other Additional Past Surgical Histo: abd surgery with colostomy and take down later (due to injury) Smoking Status: Current Every Day Smoker Alcohol Use: Heavy Drug Use: Marijuana, Methamphetamine fhx htn Cardiovascular: HTN Psych: Anxiety, Addictions, Depression, Other Endocrine: Diabetes Past Surgical History Past Surgical History: Other Family History Family History: Alcohol Abuse, Hypertension, Family History Unknown Social History Smoke: <1 pack per day ALCOHOL: heavy Drugs: Marijuana, Crystal meth Current Problem List Problem List Problems Medical Problems: (1) Alcohol intoxication Status: Acute (2) Desire for detoxification Status: Acute (3) Methamphetamine abuse Status: Acute Current Medications Current Medications Current Medications Sodium Chloride 1,000 ml @ 1,000 mls/hr 1X ONCE IV Last administered on 12/27/19at 03:48; Start 12/27/19 at 04:00; Stop 12/27/19 at 04:59; Status DC Sodium Chloride 1,000 ml @ 1,000 mls/hr 1X ONCE IV Last administered on 12/27/19at 03:52; Start 12/27/19 at 04:00; Stop 12/27/19 at 04:59; Status DC Ondansetron HCl (Zofran) 4 mg 1X ONCE IVP Last administered on 12/27/19at 03:48; Start 12/27/19 at 04:00; Stop 12/27/19 at 04:01; Status DC Thiamine HCl 100 mg/Dextrose 51 ml @ 102 mls/hr 1X ONCE IV Last administered on 12/27/19at 03:49; Start 12/27/19 at 04:00; Stop 12/27/19 at 04:29; Status DC Ondansetron HCl (Zofran) 4 mg PRN Q8HRS PRN IV NAUSEA/VOMITING 1ST CHOICE; Start 12/27/19 at 05:30; Stop 12/28/19 at 05:29 Chlordiazepoxide (Librium) 50 mg PRN Q1HR PRN PO For CIWA 8-14; Start 12/27/19 at 05:30 Chlordiazepoxide (Librium) 100 mg PRN Q1HR PRN PO For CIWA 15 or greater; Start 12/27/19 at 05:30 Lorazepam (Ativan Inj) 2 mg PRN Q1HR PRN IV For CIWA 8-14 Last administered on 12/27/19at 09:25; Start 12/27/19 at 05:30 Lorazepam (Ativan Inj) 4 mg PRN Q1HR PRN IV For CIWA 15 or greater; Start 12/27/19 at 05:30 Active Scripts Active Catapres (Clonidine Hcl) 0.1 Mg Tablet 0.1 Mg PO PRN Q6HRS PRN 14 Days Up to TID for alcohol withdrawal symptoms for 2 weeks Cipro (Ciprofloxacin Hcl) 250 Mg Tablet 250 Mg PO BID 10 Days Lidocaine PATCH (Lidocaine) 1 Each Adh..patch 1 Patch TD DAILY Mag-Oxide (Magnesium Oxide) 400 Mg Tablet 400 Mg PO DAILY Thera-M Tablet (Multivits,Ca,Minerals/Iron/Fa) 1 Each Tablet 1 Tab PO DAILY 30 Days Vitamin B-1 (Thiamine Mononitrate) 100 Mg Tablet 100 Mg PO DAILY 30 Days Folic Acid 1 Mg Tablet 1 Mg PO DAILY 30 Days [Pantoprazole] 40 MG Tablet.dr 40 Mg PO DAILYAC 30 Days Reported Melatonin 3 Mg Tablet 1 Tab PO QHS Celexa (Citalopram Hydrobromide) 20 Mg Tablet 1 Tab PO DAILY Seroquel (Quetiapine Fumarate) 100 Mg Tablet 1 Tab PO QHS Allergies Allergies: Coded Allergies: cyclobenzaprine HCl (Verified Allergy, Intermediate, rash, 03/12/15) ROS Review of System 14 PT ROS OTHERWISE NEG General: YES: Fatigue PSYCHOLOGICAL ROS: YES: Depression; No: Anxiety, Behavioral Disorder, Concentration difficultie, Decreased libido, Disorientation, Hallucinations, Hostility, Irritablity, Memory difficulties, Mood Swings, Obsessive thoughts, Physical abuse, Sexual abuse, Sleep disturbances, Suicidal ideation, Other Eyes: No Blurry vision, No Decreased vision, No Double vision, No Dry eyes, No Excessive tearing, No Eye Pain, No Itchy Eyes, No Loss of vision, No Photophobia, No Scotomata, No Uses contacts, No Uses glasses, No Other HEENT: No: Heacaches, Visual Changes, Hearing change, Nasal congestion, Nasal discharge, Oral lesions, Sinus pain, Sore Throat, Epistaxis, Sneezing, Snoring, Tinnitus, Vertigo, Vocal changes, Other ALLERGY AND IMMUNOLOGY: No: Hives, Insect Bite Sensitivity, Itchy/Watery Eyes, Nasal Congestion, Post Nasal Drip, Seasonal Allergies, Other Hematological and Lymphatic: No: Bleeding Problems, Blood Clots, Blood Transfusions, Brusing, Night Sweats, Pallor, Swollen Lymph Nodes, Other Respiratory: No: Cough, Hemoptysis, Orthopnea, Pleuritic Pain, Shortness of breath, SOB with excertion, Sputum Changes, Stridor, Tachypnea, Wheezing, Other Cardiovascular: No Chest Pain, No Palpitations, No Orthopnea, No Paroxysmal Noc. Dyspnea, No Edema, No Lt Headedness, No Other Gastrointestinal: Yes Nausea, Yes Vomiting Musculoskeletal: Yes Joint Stiffness Neurological: Yes Confusion Skin: Yes Dry Skin; No Eczema, No Hair Changes, No Lumps, No Mole Changes, No Mottling, No Nail Changes, No Pruritus, No Rash, No Skin Lesion Changes, No Other, No Acne Physical Exam Physical Exam Physical Exam Physical Exam Constitutional: Well developed, well nourished, anxious, depressed, non-toxic appearance. [] HENT: Normocephalic, atraumatic, bilateral external ears normal, oropharynx moist, no oral exudates, nose normal. [] Eyes: PERRLA, EOMI, conjunctiva normal, no discharge. [] Neck: Normal range of motion, no tenderness, supple, no stridor. [] Cardiovascular: Tachycardic, no murmur [] Lungs & Thorax: Bilateral breath sounds clear to auscultation [] Abdomen: Bowel sounds normal, soft, no tenderness, no masses, no pulsatile masses. [] Skin: Warm, dry, no erythema, no rash. [] Back: No tenderness, no CVA tenderness. [] Extremities: No tenderness, no cyanosis, no clubbing, ROM intact, no edema. [] Neurologic: Alert and oriented X 3, no focal deficits noted. [] Psychologic: No SI or HI General: Oriented X3, Cooperative, No acute distress HEENT: Atraumatic, PERRLA, EOMI, Mucous membr. moist/pink Lungs: Clear to auscultation, Normal air movement Heart: S1S2, RRR Breasts: Not examined Abdomen: Normal bowel sounds, Soft, No tenderness Rectal Exam: not examined Extremities: No cyanosis, No edema Skin: No breakdown, No significant lesion Neuro: Normal speech, Cranial nerves 3-12 NL Psych/Mental Status: Mood NL Vitals Vitals Vital Signs Date Time Temp Pulse Resp B/P (MAP) Pulse Ox O2 Delivery O2 Flow Rate FiO2 12/27/19 08:00 98.0 77 19 105/61 (76) 95 Room Air 98.0 Labs Labs Laboratory Tests Test 12/27/19 03:35 White Blood Count 5.1 x10^3/uL (4.0-11.0) Red Blood Count 4.71 x10^6/uL (4.30-5.70) Hemoglobin 14.7 g/dL (13.0-17.5) Hematocrit 42.7 % (39.0-53.0) Mean Corpuscular Volume 91 fL (79-100) Mean Corpuscular Hemoglobin 31 pg (25-35) Mean Corpuscular Hemoglobin Concent 35 g/dL (31-37) Red Cell Distribution Width 14.6 % (11.5-14.5) Platelet Count 285 x10^3/uL (140-400) Neutrophils (%) (Auto) 33 % (31-73) Lymphocytes (%) (Auto) 57 % (24-48) Monocytes (%) (Auto) 6 % (0-9) Eosinophils (%) (Auto) 1 % (0-3) Basophils (%) (Auto) 3 % (0-3) Neutrophils # (Auto) 1.7 x10^3/uL (1.8-7.7) Lymphocytes # (Auto) 2.9 x10^3/uL (1.0-4.8) Monocytes # (Auto) 0.3 x10^3/uL (0.0-1.1) Eosinophils # (Auto) 0.0 x10^3/uL (0.0-0.7) Basophils # (Auto) 0.1 x10^3/uL (0.0-0.2) Sodium Level 146 mmol/L (136-145) Potassium Level 3.6 mmol/L (3.5-5.1) Chloride Level 105 mmol/L (98-107) Carbon Dioxide Level 29 mmol/L (21-32) Anion Gap 12 (6-14) Blood Urea Nitrogen 13 mg/dL (8-26) Creatinine 0.7 mg/dL (0.7-1.3) Estimated GFR (Cockcroft-Gault) 123.7 BUN/Creatinine Ratio 19 (6-20) Glucose Level 133 mg/dL (70-99) Calcium Level 8.9 mg/dL (8.5-10.1) Total Bilirubin 0.8 mg/dL (0.2-1.0) Aspartate Amino Transf (AST/SGOT) 91 U/L (15-37) Alanine Aminotransferase (ALT/SGPT) 231 U/L (16-63) Alkaline Phosphatase 101 U/L (46-116) Total Protein 7.6 g/dL (6.4-8.2) Albumin 4.2 g/dL (3.4-5.0) Albumin/Globulin Ratio 1.2 (1.0-1.7) Ethyl Alcohol Level 312 mg/dL (0-10) Laboratory Tests Test 12/27/19 03:35 White Blood Count 5.1 x10^3/uL (4.0-11.0) Red Blood Count 4.71 x10^6/uL (4.30-5.70) Hemoglobin 14.7 g/dL (13.0-17.5) Hematocrit 42.7 % (39.0-53.0) Mean Corpuscular Volume 91 fL (79-100) Mean Corpuscular Hemoglobin 31 pg (25-35) Mean Corpuscular Hemoglobin Concent 35 g/dL (31-37) Red Cell Distribution Width 14.6 % (11.5-14.5) Platelet Count 285 x10^3/uL (140-400) Neutrophils (%) (Auto) 33 % (31-73) Lymphocytes (%) (Auto) 57 % (24-48) Monocytes (%) (Auto) 6 % (0-9) Eosinophils (%) (Auto) 1 % (0-3) Basophils (%) (Auto) 3 % (0-3) Neutrophils # (Auto) 1.7 x10^3/uL (1.8-7.7) Lymphocytes # (Auto) 2.9 x10^3/uL (1.0-4.8) Monocytes # (Auto) 0.3 x10^3/uL (0.0-1.1) Eosinophils # (Auto) 0.0 x10^3/uL (0.0-0.7) Basophils # (Auto) 0.1 x10^3/uL (0.0-0.2) Sodium Level 146 mmol/L (136-145) Potassium Level 3.6 mmol/L (3.5-5.1) Chloride Level 105 mmol/L (98-107) Carbon Dioxide Level 29 mmol/L (21-32) Anion Gap 12 (6-14) Blood Urea Nitrogen 13 mg/dL (8-26) Creatinine 0.7 mg/dL (0.7-1.3) Estimated GFR (Cockcroft-Gault) 123.7 BUN/Creatinine Ratio 19 (6-20) Glucose Level 133 mg/dL (70-99) Calcium Level 8.9 mg/dL (8.5-10.1) Total Bilirubin 0.8 mg/dL (0.2-1.0) Aspartate Amino Transf (AST/SGOT) 91 U/L (15-37) Alanine Aminotransferase (ALT/SGPT) 231 U/L (16-63) Alkaline Phosphatase 101 U/L (46-116) Total Protein 7.6 g/dL (6.4-8.2) Albumin 4.2 g/dL (3.4-5.0) Albumin/Globulin Ratio 1.2 (1.0-1.7) Ethyl Alcohol Level 312 mg/dL (0-10) VTE Prophylaxis Ordered VTE Prophylaxis Devices: Yes VTE Pharmacological Prophylaxi: Yes Assessment/Plan Assessment/Plan Assessment/Plan acute alochol intoxication, ALCOHOL ABUSE, CHRONIC, RECURRENT suicidal ideations, resolved sinc last admit hx MAJOR DEPRESSION POLYSUBSTANCE ABUSE ETOH withdrawal risk - PLAN admit PAT CONSULT, PLACEMENT banana bag alcohol withdrawal precautions dvt precautions gi prophylaxis alcohol cesation education provided UDS 58 min pt exam, chart review, > 50% of time spent with exam, chart review, pt care coordination KAY GUAJARDO MD Dec 27, 2019 10:33
[2019-12-27 10:39] VITALS: BP 114/70
[2019-12-27] MEDS ORDERED: cloNIDine HCL 0.1 MG TABLET PO PRN ×2 (14:00)
[2019-12-27] MEDS ORDERED: DOCUSATE SODIUM 100 MG CAPSULE. PO PRN (14:00)
[2019-12-27] MEDS ORDERED: SODIUM PHOSPHATES 19/7GM 133 ML ENEMA. PR PRN (14:00)
[2019-12-27] MEDS ORDERED: 0.9 % SODIUM CHLORIDE 10 ML DISP.SYRIN. IV PRN (14:00)
[2019-12-27] MEDS ORDERED: MULTIVIT INFUSN,ADULT 4,VIT K 10 ML, THIAMINE INJ 100 MG, FOLIC ACID INJ 1 MG in IV NOR... IV ONE (14:00)
[2019-12-27] MEDS ORDERED: guaiFENesin ORAL 200 MG/10 ML LIQUID. PO PRN (14:00)
[2019-12-27] MEDS ORDERED: ACETAMINOPHEN 325 MG TABLET. PO PRN (14:00)
[2019-12-27] MEDS: IPRATRPIUM/ALBUTEROL 0.5/2.5MG 3 ML NEBU. NEB SCH ×3 (14:00→21:36)
[2019-12-27] MEDS ORDERED: diphenhydrAMINE 50 MG/ML VIAL IVP PRN (14:00)
[2019-12-27] MEDS ORDERED: HALOPERIDOL LACTATE 5 MG/ML VIAL. IVP PRN (14:00)
[2019-12-27] MEDS ORDERED: LORazepam 1 MG TABLET PO PRN ×2 (14:00)
[2019-12-27] MEDS ORDERED: MAG HYDROX/ALUMINUM HYD/SIMETH 30 ML ORAL.SUSP PO PRN (14:00)
[2019-12-27] MEDS ORDERED: ALBUTEROL SULFATE 2.5 MG/3 ML NEBU. NEB PRN (14:00)
[2019-12-27] MEDS ORDERED: LORazepam 0.5 MG TABLET PO PRN (14:00)
[2019-12-27 15:00] VITALS: BP 118/77
[2019-12-27] MEDS: ENOXAPARIN 40 MG/0.4 ML SYRINGE. SQ SCH (15:12)
[2019-12-27 17:50] LABS: BARBITURATES NEG (NEG); BENZODIAZEPINES NEG (NEG); CANNABINOIDS NEG (NEG); COCAINE NEG (NEG); METHADONE NEG (NEG); OPIATES NEG (NEG); PHENCYCLIDINE NEG (NEG)
[2019-12-27 17:51] LABS: AMPHETAMINE/METHAMPHETAMINE POS (NEG)
[2019-12-27 18:07] LABS: BILIRUBIN,URINE NEGATIVE (NEG); CLARITY,URINE CLEAR; COLOR,URINE YELLOW; NITRITE,URINE POSITIVE (NEG); PH,URINE 6.5 (<5.0-8.0); PROTEIN,URINE NEGATIVE (NEG-TRACE)
[2019-12-27 19:07] LABS: BACTERIA,URINE MANY /HPF (0-FEW); RBC,URINE 0 /HPF (0-2); SQUAMOUS EPITHELIAL CELL,UR OCC /LPF
[2019-12-27 19:42] VITALS: BP 137/73
[2019-12-27 23:56] VITALS: BP 139/81
[2019-12-28] MEDS: ONDANSETRON PF 4 MG/2 ML VIAL. IV PRN ×3 (01:38→23:22)
[2019-12-28 03:49] VITALS: BP 136/84
[2019-12-28 07:48] VITALS: BP 116/77
[2019-12-28] MEDS: IPRATRPIUM/ALBUTEROL 0.5/2.5MG 3 ML NEBU. NEB SCH ×4 (08:00→20:14)
[2019-12-28 11:00] VITALS: BP 123/81
--- NOTE | 2019-12-28 11:00 | PDOC ---
PROGRESS NOTES History of Present Illness History of Present Illness VTE Prophylaxis Ordered VTE Prophylaxis Devices: Yes VTE Pharmacological Prophylaxi: Yes Assessment/Plan Assessment/Plan Assessment/Plan acute alochol intoxication, ALCOHOL ABUSE, CHRONIC, RECURRENT suicidal ideations, resolved sinc last admit hx MAJOR DEPRESSION POLYSUBSTANCE ABUSE ETOH withdrawal risk - PLAN admit PAT CONSULT, PLACEMENT banana bag alcohol withdrawal precautions dvt precautions gi prophylaxis alcohol cessation education provided UDS 38 min pt exam, chart review, > 50% of time spent with exam, chart review, pt care coordination Vitals Vitals Vital Signs Date Time Temp Pulse Resp B/P (MAP) Pulse Ox O2 Delivery O2 Flow Rate FiO2 12/28/19 08:07 96 Room Air 12/28/19 07:48 97.6 60 18 116/77 (90) 97.6 Physical Exam General: Alert, Oriented X3, Cooperative, No acute distress Heart: Regular rate, No murmurs Lungs: Clear Abdomen: Normal bowel sounds, Soft, No tenderness Extremities: No cyanosis, No edema Skin: No breakdown, No significant lesion Labs LABS Laboratory Tests Test 12/27/19 11:33 12/27/19 17:25 12/27/19 20:52 12/28/19 07:25 Glucose (Fingerstick) 94 mg/dL (70-99) 127 mg/dL (70-99) 101 mg/dL (70-99) Urine Collection Type Unknown Urine Color Yellow Urine Clarity Clear Urine pH 6.5 (<5.0-8.0) Urine Specific [place] 1.020 (1.000-1.030) Urine Protein Negative mg/dL (NEG-TRACE) Urine Glucose (UA) Negative mg/dL (NEG) Urine Ketones (Stick) Trace mg/dL (NEG) Urine Blood Negative (NEG) Urine Nitrite Positive (NEG) Urine Bilirubin Negative (NEG) Urine Urobilinogen Dipstick 1.0 mg/dL (0.2 mg/dL) Urine Leukocyte Esterase Trace (NEG) Urine RBC 0 /HPF (0-2) Urine WBC 1-4 /HPF (0-4) Urine Squamous Epithelial Cells Occ /LPF Urine Bacteria Many /HPF (0-FEW) Urine Mucus Slight /LPF Urine Opiates Screen Neg (NEG) Urine Methadone Screen Neg (NEG) Urine Barbiturates Neg (NEG) Urine Phencyclidine Screen Neg (NEG) Urine Amphetamine/Methamphetamine Pos (NEG) Urine Benzodiazepines Screen Neg (NEG) Urine Cocaine Screen Neg (NEG) Urine Cannabinoids Screen Neg (NEG) Urine Ethyl Alcohol Pos (NEG) Assessment and Plan Assessmemt and Plan Problems Medical Problems: (1) Alcohol intoxication Status: Acute (2) Desire for detoxification Status: Acute (3) Methamphetamine abuse Status: Acute Comment Review of Relevant I have reviewed the following items casi (where applicable) has been applied. Labs Laboratory Tests Test 12/27/19 03:35 12/27/19 08:10 12/27/19 11:33 12/27/19 17:25 White Blood Count 5.1 x10^3/uL (4.0-11.0) Red Blood Count 4.71 x10^6/uL (4.30-5.70) Hemoglobin 14.7 g/dL (13.0-17.5) Hematocrit 42.7 % (39.0-53.0) Mean Corpuscular Volume 91 fL (79-100) Mean Corpuscular Hemoglobin 31 pg (25-35) Mean Corpuscular Hemoglobin Concent 35 g/dL (31-37) Red Cell Distribution Width 14.6 % (11.5-14.5) Platelet Count 285 x10^3/uL (140-400) Neutrophils (%) (Auto) 33 % (31-73) Lymphocytes (%) (Auto) 57 % (24-48) Monocytes (%) (Auto) 6 % (0-9) Eosinophils (%) (Auto) 1 % (0-3) Basophils (%) (Auto) 3 % (0-3) Neutrophils # (Auto) 1.7 x10^3/uL (1.8-7.7) Lymphocytes # (Auto) 2.9 x10^3/uL (1.0-4.8) Monocytes # (Auto) 0.3 x10^3/uL (0.0-1.1) Eosinophils # (Auto) 0.0 x10^3/uL (0.0-0.7) Basophils # (Auto) 0.1 x10^3/uL (0.0-0.2) Sodium Level 146 mmol/L (136-145) Potassium Level 3.6 mmol/L (3.5-5.1) Chloride Level 105 mmol/L (98-107) Carbon Dioxide Level 29 mmol/L (21-32) Anion Gap 12 (6-14) Blood Urea Nitrogen 13 mg/dL (8-26) Creatinine 0.7 mg/dL (0.7-1.3) Estimated GFR (Cockcroft-Gault) 123.7 BUN/Creatinine Ratio 19 (6-20) Glucose Level 133 mg/dL (70-99) Calcium Level 8.9 mg/dL (8.5-10.1) Total Bilirubin 0.8 mg/dL (0.2-1.0) Aspartate Amino Transf (AST/SGOT) 91 U/L (15-37) Alanine Aminotransferase (ALT/SGPT) 231 U/L (16-63) Alkaline Phosphatase 101 U/L (46-116) Total Protein 7.6 g/dL (6.4-8.2) Albumin 4.2 g/dL (3.4-5.0) Albumin/Globulin Ratio 1.2 (1.0-1.7) Ethyl Alcohol Level 312 mg/dL (0-10) Glucose (Fingerstick) 110 mg/dL (70-99) 94 mg/dL (70-99) Urine Collection Type Unknown Urine Color Yellow Urine Clarity Clear Urine pH 6.5 (<5.0-8.0) Urine Specific [place] 1.020 (1.000-1.030) Urine Protein Negative mg/dL (NEG-TRACE) Urine Glucose (UA) Negative mg/dL (NEG) Urine Ketones (Stick) Trace mg/dL (NEG) Urine Blood Negative (NEG) Urine Nitrite Positive (NEG) Urine Bilirubin Negative (NEG) Urine Urobilinogen Dipstick 1.0 mg/dL (0.2 mg/dL) Urine Leukocyte Esterase Trace (NEG) Urine RBC 0 /HPF (0-2) Urine WBC 1-4 /HPF (0-4) Urine Squamous Epithelial Cells Occ /LPF Urine Bacteria Many /HPF (0-FEW) Urine Mucus Slight /LPF Urine Opiates Screen Neg (NEG) Urine Methadone Screen Neg (NEG) Urine Barbiturates Neg (NEG) Urine Phencyclidine Screen Neg (NEG) Urine Amphetamine/Methamphetamine Pos (NEG) Urine Benzodiazepines Screen Neg (NEG) Urine Cocaine Screen Neg (NEG) Urine Cannabinoids Screen Neg (NEG) Urine Ethyl Alcohol Pos (NEG) Test 12/27/19 20:52 12/28/19 07:25 Glucose (Fingerstick) 127 mg/dL (70-99) 101 mg/dL (70-99) Laboratory Tests Test 12/27/19 11:33 12/27/19 17:25 12/27/19 20:52 12/28/19 07:25 Glucose (Fingerstick) 94 mg/dL (70-99) 127 mg/dL (70-99) 101 mg/dL (70-99) Urine Collection Type Unknown Urine Color Yellow Urine Clarity Clear Urine pH 6.5 (<5.0-8.0) Urine Specific [place] 1.020 (1.000-1.030) Urine Protein Negative mg/dL (NEG-TRACE) Urine Glucose (UA) Negative mg/dL (NEG) Urine Ketones (Stick) Trace mg/dL (NEG) Urine Blood Negative (NEG) Urine Nitrite Positive (NEG) Urine Bilirubin Negative (NEG) Urine Urobilinogen Dipstick 1.0 mg/dL (0.2 mg/dL) Urine Leukocyte Esterase Trace (NEG) Urine RBC 0 /HPF (0-2) Urine WBC 1-4 /HPF (0-4) Urine Squamous Epithelial Cells Occ /LPF Urine Bacteria Many /HPF (0-FEW) Urine Mucus Slight /LPF Urine Opiates Screen Neg (NEG) Urine Methadone Screen Neg (NEG) Urine Barbiturates Neg (NEG) Urine Phencyclidine Screen Neg (NEG) Urine Amphetamine/Methamphetamine Pos (NEG) Urine Benzodiazepines Screen Neg (NEG) Urine Cocaine Screen Neg (NEG) Urine Cannabinoids Screen Neg (NEG) Urine Ethyl Alcohol Pos (NEG) Medications Current Medications Sodium Chloride 1,000 ml @ 1,000 mls/hr 1X ONCE IV Last administered on 12/27/19at 03:48; Start 12/27/19 at 04:00; Stop 12/27/19 at 04:59; Status DC Sodium Chloride 1,000 ml @ 1,000 mls/hr 1X ONCE IV Last administered on 12/27/19at 03:52; Start 12/27/19 at 04:00; Stop 12/27/19 at 04:59; Status DC Ondansetron HCl (Zofran) 4 mg 1X ONCE IVP Last administered on 12/27/19at 03:48; Start 12/27/19 at 04:00; Stop 12/27/19 at 04:01; Status DC Thiamine HCl 100 mg/Dextrose 51 ml @ 102 mls/hr 1X ONCE IV Last administered on 12/27/19at 03:49; Start 12/27/19 at 04:00; Stop 12/27/19 at 04:29; Status DC Ondansetron HCl (Zofran) 4 mg PRN Q8HRS PRN IV NAUSEA/VOMITING 1ST CHOICE; Sta rt 12/27/19 at 05:30; Stop 12/28/19 at 05:29; Status Cancel Chlordiazepoxide (Librium) 50 mg PRN Q1HR PRN PO For CIWA 8-14; Start 12/27/19 at 05:30; Stop 12/27/19 at 13:57; Status DC Chlordiazepoxide (Librium) 100 mg PRN Q1HR PRN PO For CIWA 15 or greater; Start 12/27/19 at 05:30; Status Cancel Lorazepam (Ativan Inj) 2 mg PRN Q1HR PRN IV For CIWA 8-14 Last administered on 12/27/19at 09:25; Start 12/27/19 at 05:30; Stop 12/27/19 at 13:54; Status DC Lorazepam (Ativan Inj) 4 mg PRN Q1HR PRN IV For CIWA 15 or greater; Start 12/27/19 at 05:30; Status Cancel Sodium Chloride (Normal Saline Flush) 3 ml QSHIFT PRN IV AFTER MEDS AND BLOOD DRAWS; Start 12/27/19 at 14:00 Multivitamins 10 ml/Thiamine HCl 100 mg/Folic Acid 1 mg/Sodium Chloride 1,011.2 ml @ 125 mls/ hr 1X ONCE IV Last administered on 12/27/19at 15:12; Start 12/27/19 at 14:00; Stop 12/27/19 at 22:05; Status DC Ondansetron HCl (Zofran) 4 mg PRN Q4HRS PRN IV NAUSEA/VOMITING Last administered on 12/28/19at 01:38; Start 12/27/19 at 14:00 Acetaminophen (Tylenol) 650 mg PRN Q4HRS PRN PO TEMP OVER 100.4F OR MILD PAIN; Start 12/27/19 at 14:00 Al Hydroxide/Mg Hydroxide (Mylanta Plus Xs) 30 ml PRN DAILY PRN PO HEARTBURN / GAS; Start 12/27/19 at 14:00 Clonidine HCl (Catapres) 0.1 mg PRN Q6HRS PRN PO SBP>160 OR DBP>90; Start 12/27/19 at 14:00 Sodium Monofluorophosphate (Fleet Adult) 133 ml PRN DAILY PRN DC CONSTIPATION; Start 12/27/19 at 14:00 Docusate Sodium (Colace) 100 mg PRN BID PRN PO CONSTIPATION; Start 12/27/19 at 14:00 Albuterol Sulfate (Ventolin Neb Soln) 2.5 mg PRN Q4HRS PRN NEB SHORTNESS OF BREATH; Start 12/27/19 at 14:00 Albuterol/ Ipratropium (Duoneb) 3 ml Q4H NEB Last administered on 12/27/19at 21:36; Start 12/27/19 at 14:00; Stop 12/27/19 at 22:32; Status DC Guaifenesin (Robitussin) 200 mg PRN Q4HRS PRN PO COUGH; Start 12/27/19 at 14:00 Lorazepam (Ativan) 0.5 mg PRN Q4HRS PRN PO ANXIETY / AGITATION; Start 12/27/19 at 14:00 Lorazepam (Ativan Inj) 2 mg PRN Q4HRS PRN IV ANXIETY / AGITATION Last administered on 12/28/19at 01:38; Start 12/27/19 at 14:00 Enoxaparin Sodium (Lovenox 40mg Syringe) 40 mg Q24H SQ Last administered on 12/27/19at 15:12; Start 12/27/19 at 16:00 Multivitamins 10 ml/Thiamine HCl 100 mg/Folic Acid 1 mg/Sodium Chloride 1,011.2 ml @ 100 mls/ hr DAILY IV ; Start 12/28/19 at 09:00; Stop 12/31/19 at 19:07 Multivitamins (Thera M Plus) 1 tab DAILY PO ; Start 01/01/20 at 09:00 Folic Acid (Folic Acid) 1 mg DAILY PO ; Start 01/01/20 at 09:00 Thiamine Mononitrate (Vitamin B-1) 100 mg DAILY PO ; Start 01/01/20 at 09:00 Thiamine HCl 100 mg/Dextrose 51 ml @ 100 mls/hr DAILY IV ; Start 01/01/20 at 09:00; Stop 01/05/20 at 09:31; Status UNV Lorazepam (Ativan) 4 mg PRN Q1HR PRN PO For CIWA 8-14; Start 12/27/19 at 14:00 Lorazepam (Ativan) 8 mg PRN Q1HR PRN PO For CIWA 15 or greater; Start 12/27/19 at 14:00 Lorazepam (Ativan Inj) 2 mg PRN Q1HR PRN IV For CIWA 8-14 Last administered on 12/27/19at 15:15; Start 12/27/19 at 14:00 Lorazepam (Ativan Inj) 4 mg PRN Q1HR PRN IV For CIWA 15 or greater; Start 12/27/19 at 14:00 Haloperidol Lactate (Haldol Inj) 5 mg PRN Q4HRS PRN IVP Hallucinatns,Confusn,Delirium; Start 12/27/19 at 14:00 Diphenhydramine HCl (Benadryl) 25 mg PRN Q15MIN PRN IVP EPS symptoms 2'Haldol admin; Start 12/27/19 at 14:00 Clonidine HCl (Catapres) 0.1 mg PRN Q1HR PRN PO SBP > 180 or DBP > 100, MRX3; Start 12/27/19 at 14:00 Lorazepam (Ativan Inj) 2 mg PRN Q15MIN PRN IV SEE COMMENTS; Start 12/27/19 at 14:00; Status UNV Lorazepam (Ativan Inj) 4 mg PRN Q15MIN PRN IV SEE COMMENTS; Start 12/27/19 at 14:00; Status UNV Pantoprazole Sodium (Protonix) 40 mg DAILYAC PO ; Start 12/28/19 at 07:30 Albuterol/ Ipratropium (Duoneb) 3 ml RTQID NEB Last administered on 12/28/19at 08:00; Start 12/28/19 at 08:00 Active Scripts Active Catapres (Clonidine Hcl) 0.1 Mg Tablet 0.1 Mg PO PRN Q6HRS PRN 14 Days Up to TID for alcohol withdrawal symptoms for 2 weeks Cipro (Ciprofloxacin Hcl) 250 Mg Tablet 250 Mg PO BID 10 Days Lidocaine PATCH (Lidocaine) 1 Each Adh..patch 1 Patch TD DAILY Mag-Oxide (Magnesium Oxide) 400 Mg Tablet 400 Mg PO DAILY Thera-M Tablet (Multivits,Ca,Minerals/Iron/Fa) 1 Each Tablet 1 Tab PO DAILY 30 Days Vitamin B-1 (Thiamine Mononitrate) 100 Mg Tablet 100 Mg PO DAILY 30 Days Folic Acid 1 Mg Tablet 1 Mg PO DAILY 30 Days [Pantoprazole] 40 MG Tablet.dr 40 Mg PO DAILYAC 30 Days Reported Melatonin 3 Mg Tablet 1 Tab PO QHS Celexa (Citalopram Hydrobromide) 20 Mg Tablet 1 Tab PO DAILY Seroquel (Quetiapine Fumarate) 100 Mg Tablet 1 Tab PO QHS Vitals/I & O Vital Sign - Last 24 Hours 12/27/19 12/27/19 12/27/19 12/27/19 15:00 17:06 19:42 20:00 Temp 97.9 98.4 97.9 98.4 Pulse 89 89 Resp 16 B/P (MAP) 118/77 (91) 137/73 (94) Pulse Ox 95 99 96 O2 Delivery Room Air Room Air Room Air Room Air 12/27/19 12/27/19 12/28/19 12/28/19 21:37 23:56 03:49 07:48 Temp 98.3 98.2 97.6 98.3 98.2 97.6 Pulse 87 72 60 Resp 18 B/P (MAP) 139/81 (100) 136/84 (101) 116/77 (90) Pulse Ox 96 96 97 98 O2 Delivery Room Air Room Air Room Air Room Air 12/28/19 08:07 Pulse Ox 96 O2 Delivery Room Air Intake and Output 12/27/19 12/27/19 12/28/19 15:00 23:00 07:00 Intake Total 360 ml 500 ml 700 ml Output Total 800 ml Balance 360 ml -300 ml 700 ml KAY GUAJARDO MD Dec 28, 2019 11:00
[2019-12-28] MEDS: PANTOPRAZOLE 40 MG TABLET.DR. PO SCH (11:24)
[2019-12-28] MEDS: MULTIVIT INFUSN,ADULT 4,VIT K 10 ML, THIAMINE INJ 100 MG, FOLIC ACID INJ 1 MG in IV NOR... IV SCH (12:55)
[2019-12-28 15:12] VITALS: BP 140/89
[2019-12-28] MEDS: ENOXAPARIN 40 MG/0.4 ML SYRINGE. SQ SCH (17:05)
[2019-12-28 19:15] VITALS: BP 128/82
[2019-12-28 23:29] VITALS: BP 125/74
[2019-12-29 03:15] VITALS: BP 122/78
[2019-12-29 07:40] VITALS: BP 140/76
[2019-12-29] MEDS: IPRATRPIUM/ALBUTEROL 0.5/2.5MG 3 ML NEBU. NEB SCH ×3 (07:40→16:03)
[2019-12-29] MEDS: PANTOPRAZOLE 40 MG TABLET.DR. PO SCH (08:41)
[2019-12-29] MEDS: MULTIVIT INFUSN,ADULT 4,VIT K 10 ML, THIAMINE INJ 100 MG, FOLIC ACID INJ 1 MG in IV NOR... IV SCH (08:42)
[2019-12-29 11:23] VITALS: BP 135/79
--- NOTE | 2019-12-29 11:52 | PDOC ---
PROGRESS NOTES History of Present Illness History of Present Illness VTE Prophylaxis Ordered VTE Prophylaxis Devices: Yes VTE Pharmacological Prophylaxi: Yes DISCHARGE DX Assessment/Plan Assessment/Plan acute alochol intoxication, ALCOHOL ABUSE, CHRONIC, RECURRENT suicidal ideations, resolved sinc last admit hx MAJOR DEPRESSION POLYSUBSTANCE ABUSE ETOH withdrawal risk - PLAN admit PAT CONSULT, PLACEMENT banana bag alcohol withdrawal precautions dvt precautions gi prophylaxis alcohol cessation education provided UDS NOTED 33 min pt exam, D/C PLANNING chart review, > 50% of time spent with exam, chart review, pt care coordination Vitals Vitals Vital Signs Date Time Temp Pulse Resp B/P (MAP) Pulse Ox O2 Delivery O2 Flow Rate FiO2 12/29/19 11:23 97.8 64 18 135/79 (97) 98 Room Air 97.8 Physical Exam General: Alert, Oriented X3, Cooperative, No acute distress Heart: Regular rate, No murmurs Lungs: Clear Abdomen: Normal bowel sounds, Soft, No tenderness Extremities: No cyanosis, No edema Skin: No breakdown, No significant lesion Labs LABS Laboratory Tests Test 12/28/19 16:40 12/28/19 21:04 12/29/19 07:23 12/29/19 10:51 Glucose (Fingerstick) 125 mg/dL (70-99) 143 mg/dL (70-99) 118 mg/dL (70-99) 118 mg/dL (70-99) Assessment and Plan Assessmemt and Plan Problems Medical Problems: (1) Alcohol intoxication Status: Acute (2) Desire for detoxification Status: Acute (3) Methamphetamine abuse Status: Acute Comment Review of Relevant I have reviewed the following items casi (where applicable) has been applied. Labs Laboratory Tests Test 12/27/19 17:25 12/27/19 20:52 12/28/19 07:25 12/28/19 10:58 Urine Collection Type Unknown Urine Color Yellow Urine Clarity Clear Urine pH 6.5 (<5.0-8.0) Urine Specific [place] 1.020 (1.000-1.030) Urine Protein Negative mg/dL (NEG-TRACE) Urine Glucose (UA) Negative mg/dL (NEG) Urine Ketones (Stick) Trace mg/dL (NEG) Urine Blood Negative (NEG) Urine Nitrite Positive (NEG) Urine Bilirubin Negative (NEG) Urine Urobilinogen Dipstick 1.0 mg/dL (0.2 mg/dL) Urine Leukocyte Esterase Trace (NEG) Urine RBC 0 /HPF (0-2) Urine WBC 1-4 /HPF (0-4) Urine Squamous Epithelial Cells Occ /LPF Urine Bacteria Many /HPF (0-FEW) Urine Mucus Slight /LPF Urine Opiates Screen Neg (NEG) Urine Methadone Screen Neg (NEG) Urine Barbiturates Neg (NEG) Urine Phencyclidine Screen Neg (NEG) Urine Amphetamine/Methamphetamine Pos (NEG) Urine Benzodiazepines Screen Neg (NEG) Urine Cocaine Screen Neg (NEG) Urine Cannabinoids Screen Neg (NEG) Urine Ethyl Alcohol Pos (NEG) Glucose (Fingerstick) 127 mg/dL (70-99) 101 mg/dL (70-99) 150 mg/dL (70-99) Test 12/28/19 16:40 12/28/19 21:04 12/29/19 07:23 12/29/19 10:51 Glucose (Fingerstick) 125 mg/dL (70-99) 143 mg/dL (70-99) 118 mg/dL (70-99) 118 mg/dL (70-99) Laboratory Tests Test 12/28/19 16:40 12/28/19 21:04 12/29/19 07:23 12/29/19 10:51 Glucose (Fingerstick) 125 mg/dL (70-99) 143 mg/dL (70-99) 118 mg/dL (70-99) 118 mg/dL (70-99) Medications Current Medications Sodium Chloride 1,000 ml @ 1,000 mls/hr 1X ONCE IV Last administered on 12/27/19at 03:48; Start 12/27/19 at 04:00; Stop 12/27/19 at 04:59; Status DC Sodium Chloride 1,000 ml @ 1,000 mls/hr 1X ONCE IV Last administered on 12/27/19at 03:52; Start 12/27/19 at 04:00; Stop 12/27/19 at 04:59; Status DC Ondansetron HCl (Zofran) 4 mg 1X ONCE IVP Last administered on 12/27/19at 03:48; Start 12/27/19 at 04:00; Stop 12/27/19 at 04:01; Status DC Thiamine HCl 100 mg/Dextrose 51 ml @ 102 mls/hr 1X ONCE IV Last administered on 12/27/19at 03:49; Start 12/27/19 at 04:00; Stop 12/27/19 at 04:29; Status DC Ondansetron HCl (Zofran) 4 mg PRN Q8HRS PRN IV NAUSEA/VOMITING 1ST CHOICE; Start 12/27/19 at 05:30; Stop 12/28/19 at 05:29; Status Cancel Chlordiazepoxide (Librium) 50 mg PRN Q1HR PRN PO For CIWA 8-14; Start 12/27/19 at 05:30; Stop 12/27/19 at 13:57; Status DC Chlordiazepoxide (Librium) 100 mg PRN Q1HR PRN PO For CIWA 15 or greater; Start 12/27/19 at 05:30; Status Cancel Lorazepam (Ativan Inj) 2 mg PRN Q1HR PRN IV For CIWA 8-14 Last administered on 12/27/19at 09:25; Start 12/27/19 at 05:30; Stop 12/27/19 at 13:54; Status DC Lorazepam (Ativan Inj) 4 mg PRN Q1HR PRN IV For CIWA 15 or greater; Start 12/27/19 at 05:30; Status Cancel Sodium Chloride (Normal Saline Flush) 3 ml QSHIFT PRN IV AFTER MEDS AND BLOOD DRAWS; Start 12/27/19 at 14:00 Multivitamins 10 ml/Thiamine HCl 100 mg/Folic Acid 1 mg/Sodium Chloride 1,011.2 ml @ 125 mls/ hr 1X ONCE IV Last administered on 12/27/19at 15:12; Start 12/27/19 at 14:00; Stop 12/27/19 at 22:05; Status DC Ondansetron HCl (Zofran) 4 mg PRN Q4HRS PRN IV NAUSEA/VOMITING Last administered on 12/28/19at 23:22; Start 12/27/19 at 14:00 Acetaminophen (Tylenol) 650 mg PRN Q4HRS PRN PO TEMP OVER 100.4F OR MILD PAIN; Start 12/27/19 at 14:00 Al Hydroxide/Mg Hydroxide (Mylanta Plus Xs) 30 ml PRN DAILY PRN PO HEARTBURN / GAS; Start 12/27/19 at 14:00 Clonidine HCl (Catapres) 0.1 mg PRN Q6HRS PRN PO SBP>160 OR DBP>90; Start 12/27/19 at 14:00 Sodium Monofluorophosphate (Fleet Adult) 133 ml PRN DAILY PRN [place] CONSTIPATION; Start 12/27/19 at 14:00 Docusate Sodium (Colace) 100 mg PRN BID PRN PO CONSTIPATION; Start 12/27/19 at 14:00 Albuterol Sulfate (Ventolin Neb Soln) 2.5 mg PRN Q4HRS PRN NEB SHORTNESS OF BREATH; Start 12/27/19 at 14:00 Albuterol/ Ipratropium (Duoneb) 3 ml Q4H NEB Last administered on 12/27/19at 21:36; Start 12/27/19 at 14:00; Stop 12/27/19 at 22:32; Status DC Guaifenesin (Robitussin) 200 mg PRN Q4HRS PRN PO COUGH; Start 12/27/19 at 14:00 Lorazepam (Ativan) 0.5 mg PRN Q4HRS PRN PO ANXIETY / AGITATION Last administered on 12/29/19at 08:41; Start 12/27/19 at 14:00 Lorazepam (Ativan Inj) 2 mg PRN Q4HRS PRN IV ANXIETY / AGITATION Last administered on 12/28/19at 23:22; Start 12/27/19 at 14:00 Enoxaparin Sodium (Lovenox 40mg Syringe) 40 mg Q24H SQ Last administered on 12/28/19at 17:05; Start 12/27/19 at 16:00 Multivitamins 10 ml/Thiamine HCl 100 mg/Folic Acid 1 mg/Sodium Chloride 1,011.2 ml @ 100 mls/ hr DAILY IV Last administered on 12/29/19at 08:42; Start 12/28/19 at 09:00; Stop 12/31/19 at 19:07 Multivitamins (Thera M Plus) 1 tab DAILY PO ; Start 01/01/20 at 09:00 Folic Acid (Folic Acid) 1 mg DAILY PO ; Start 01/01/20 at 09:00 Thiamine Mononitrate (Vitamin B-1) 100 mg DAILY PO ; Start 01/01/20 at 09:00 Thiamine HCl 100 mg/Dextrose 51 ml @ 100 mls/hr DAILY IV ; Start 01/01/20 at 09:00; Stop 01/05/20 at 09:31; Status UNV Lorazepam (Ativan) 4 mg PRN Q1HR PRN PO For CIWA 8-14; Start 12/27/19 at 14:00 Lorazepam (Ativan) 8 mg PRN Q1HR PRN PO For CIWA 15 or greater; Start 12/27/19 at 14:00 Lorazepam (Ativan Inj) 2 mg PRN Q1HR PRN IV For CIWA 8-14 Last administered on 12/27/19at 15:15; Start 12/27/19 at 14:00 Lorazepam (Ativan Inj) 4 mg PRN Q1HR PRN IV For CIWA 15 or greater; Start 12/27/19 at 14:00 Haloperidol Lactate (Haldol Inj) 5 mg PRN Q4HRS PRN IVP Hallucinatns,Confusn,Delirium; Start 12/27/19 at 14:00 Diphenhydramine HCl (Benadryl) 25 mg PRN Q15MIN PRN IVP EPS symptoms 2'Haldol admin; Start 12/27/19 at 14:00 Clonidine HCl (Catapres) 0.1 mg PRN Q1HR PRN PO SBP > 180 or DBP > 100, MRX3; Start 12/27/19 at 14:00 Lorazepam (Ativan Inj) 2 mg PRN Q15MIN PRN IV SEE COMMENTS; Start 12/27/19 at 14:00; Status UNV Lorazepam (Ativan Inj) 4 mg PRN Q15MIN PRN IV SEE COMMENTS; Start 12/27/19 at 14:00; Status UNV Pantoprazole Sodium (Protonix) 40 mg DAILYAC PO Last administered on 12/29/19at 08:41; Start 12/28/19 at 07:30 Albuterol/ Ipratropium (Duoneb) 3 ml RTQID NEB Last administered on 12/29/19at 07:40; Start 12/28/19 at 08:00 Active Scripts Active Catapres (Clonidine Hcl) 0.1 Mg Tablet 0.1 Mg PO PRN Q6HRS PRN 14 Days Up to TID for alcohol withdrawal symptoms for 2 weeks Cipro (Ciprofloxacin Hcl) 250 Mg Tablet 250 Mg PO BID 10 Days Lidocaine PATCH (Lidocaine) 1 Each Adh..patch 1 Patch TD DAILY Mag-Oxide (Magnesium Oxide) 400 Mg Tablet 400 Mg PO DAILY Thera-M Tablet (Multivits,Ca,Minerals/Iron/Fa) 1 Each Tablet 1 Tab PO DAILY 30 Days Vitamin B-1 (Thiamine Mononitrate) 100 Mg Tablet 100 Mg PO DAILY 30 Days Folic Acid 1 Mg Tablet 1 Mg PO DAILY 30 Days [Pantoprazole] 40 MG Tablet.dr 40 Mg PO DAILYAC 30 Days Reported Melatonin 3 Mg Tablet 1 Tab PO QHS Celexa (Citalopram Hydrobromide) 20 Mg Tablet 1 Tab PO DAILY Seroquel (Quetiapine Fumarate) 100 Mg Tablet 1 Tab PO QHS Vitals/I & O Vital Sign - Last 24 Hours 12/28/19 12/28/19 12/28/19 12/28/19 15:12 16:15 19:15 20:05 Temp 98.0 98.3 98.0 98.3 Pulse 73 69 Resp 18 16 B/P (MAP) 140/89 (106) 128/82 (97) Pulse Ox 96 94 O2 Delivery Room Air Room Air Room Air Room Air 12/28/19 12/28/19 12/29/19 12/29/19 20:12 23:29 03:15 07:40 Temp 98.1 98.0 97.6 98.1 98.0 97.6 Pulse 80 65 57 Resp 16 16 18 B/P (MAP) 125/74 (91) 122/78 (93) 140/76 (97) Pulse Ox 96 98 99 O2 Delivery Room Air Room Air Room Air Room Air 12/29/19 12/29/19 12/29/19 07:42 08:00 11:23 Temp 97.8 97.8 Pulse 64 Resp 18 B/P (MAP) 135/79 (97) Pulse Ox 98 98 O2 Delivery Room Air Room Air Room Air Intake and Output 12/28/19 12/28/19 12/29/19 14:59 22:59 06:59 Intake Total 300 ml 320 ml 980 ml Output Total 1200 ml Balance 300 ml 320 ml -220 ml KAY GUAJARDO MD Dec 29, 2019 11:52
--- NOTE | 2019-12-29 12:50 | PDOC3 ---
Discharge Summary Date of Admission: Dec 27, 2019 Date of Discharge: Dec 29, 2019 Follow-Up: 3-5 days Admitting Diagnosis comment: DISCHARGE DX Assessment/Plan Assessment/Plan acute alochol intoxication, ALCOHOL ABUSE, CHRONIC, RECURRENT suicidal ideations, resolved sinc last admit hx MAJOR DEPRESSION POLYSUBSTANCE ABUSE ETOH withdrawal risk - PLAN admit PAT CONSULT, PLACEMENT banana bag alcohol withdrawal precautions dvt precautions gi prophylaxis alcohol cessation education provided UDS NOTED ATTEND AA DAILY 33 min pt exam, D/C PLANNING chart review, > 50% of time spent with exam, chart review, pt care coordination Vitals Vitals Vital Signs Date Time Temp Pulse Resp B/P (MAP) Pulse Ox O2 Delivery O2 Flow Rate FiO2 12/29/19 11:23 97.8 64 18 135/79 (97) 98 Room Air 97.8 Physical Exam General: Alert, Oriented X3, Cooperative, No acute distress Heart: Regular rate, No murmurs Lungs: Clear Abdomen: Normal bowel sounds, Soft, No tenderness Extremities: No cyanosis, No edema Skin: No breakdown, No significant lesion Labs LABS Laboratory Tests Test 12/28/19 16:40 12/28/19 21:04 12/29/19 07:23 12/29/19 10:51 Glucose (Fingerstick) 125 mg/dL (70-99) 143 mg/dL (70-99) 118 mg/dL (70-99) 118 mg/dL (70-99) FINAL DIAGNOSIS Problems Medical Problems: (1) Alcohol intoxication Status: Acute (2) Desire for detoxification Status: Acute (3) Methamphetamine abuse Status: Acute Brief Hospital Course Mr. Calderon is a 44 old [sex] who presented with [ALCOHOL AND METH ABUSE ] CONDITION AT DISCHARGE: Improved Discharge Medications Current Medications Sodium Chloride 1,000 ml @ 1,000 mls/hr 1X ONCE IV Last administered on 12/27/19at 03:48; Start 12/27/19 at 04:00; Stop 12/27/19 at 04:59; Status DC Sodium Chloride 1,000 ml @ 1,000 mls/hr 1X ONCE IV Last administered on 12/27/19at 03:52; Start 12/27/19 at 04:00; Stop 12/27/19 at 04:59; Status DC Ondansetron HCl (Zofran) 4 mg 1X ONCE IVP Last administered on 12/27/19at 03:48; Start 12/27/19 at 04:00; Stop 12/27/19 at 04:01; Status DC Thiamine HCl 100 mg/Dextrose 51 ml @ 102 mls/hr 1X ONCE IV Last administered on 12/27/19at 03:49; Start 12/27/19 at 04:00; Stop 12/27/19 at 04:29; Status DC Ondansetron HCl (Zofran) 4 mg PRN Q8HRS PRN IV NAUSEA/VOMITING 1ST CHOICE; Start 12/27/19 at 05:30; Stop 12/28/19 at 05:29; Status Cancel Chlordiazepoxide (Librium) 50 mg PRN Q1HR PRN PO For CIWA 8-14; Start 12/27/19 at 05:30; Stop 12/27/19 at 13:57; Status DC Chlordiazepoxide (Librium) 100 mg PRN Q1HR PRN PO For CIWA 15 or greater; Start 12/27/19 at 05:30; Status Cancel Lorazepam (Ativan Inj) 2 mg PRN Q1HR PRN IV For CIWA 8-14 Last administered on 12/27/19at 09:25; Start 12/27/19 at 05:30; Stop 12/27/19 at 13:54; Status DC Lorazepam (Ativan Inj) 4 mg PRN Q1HR PRN IV For CIWA 15 or greater; Start 12/27/19 at 05:30; Status Cancel Sodium Chloride (Normal Saline Flush) 3 ml QSHIFT PRN IV AFTER MEDS AND BLOOD DRAWS; Start 12/27/19 at 14:00 Multivitamins 10 ml/Thiamine HCl 100 mg/Folic Acid 1 mg/Sodium Chloride 1,011.2 ml @ 125 mls/ hr 1X ONCE IV Last administered on 12/27/19at 15:12; Start 12/27/19 at 14:00; Stop 12/27/19 at 22:05; Status DC Ondansetron HCl (Zofran) 4 mg PRN Q4HRS PRN IV NAUSEA/VOMITING Last administered on 12/28/19at 23:22; Start 12/27/19 at 14:00 Acetaminophen (Tylenol) 650 mg PRN Q4HRS PRN PO TEMP OVER 100.4F OR MILD PAIN; Start 12/27/19 at 14:00 Al Hydroxide/Mg Hydroxide (Mylanta Plus Xs) 30 ml PRN DAILY PRN PO HEARTBURN / GAS; Start 12/27/19 at 14:00 Clonidine HCl (Catapres) 0.1 mg PRN Q6HRS PRN PO SBP>160 OR DBP>90; Start 12/27/19 at 14:00 Sodium Monofluorophosphate (Fleet Adult) 133 ml PRN DAILY PRN [place] CONSTIPATION; Start 12/27/19 at 14:00 Docusate Sodium (Colace) 100 mg PRN BID PRN PO CONSTIPATION; Start 12/27/19 at 14:00 Albuterol Sulfate (Ventolin Neb Soln) 2.5 mg PRN Q4HRS PRN NEB SHORTNESS OF BREATH; Start 12/27/19 at 14:00 Albuterol/ Ipratropium (Duoneb) 3 ml Q4H NEB Last administered on 12/27/19at 21:36; Start 12/27/19 at 14:00; Stop 12/27/19 at 22:32; Status DC Guaifenesin (Robitussin) 200 mg PRN Q4HRS PRN PO COUGH; Start 12/27/19 at 14:00 Lorazepam (Ativan) 0.5 mg PRN Q4HRS PRN PO ANXIETY / AGITATION Last admini stered on 12/29/19at 08:41; Start 12/27/19 at 14:00 Lorazepam (Ativan Inj) 2 mg PRN Q4HRS PRN IV ANXIETY / AGITATION Last admini stered on 12/28/19at 23:22; Start 12/27/19 at 14:00 Enoxaparin Sodium (Lovenox 40mg Syringe) 40 mg Q24H SQ Last administered on 12/28/19at 17:05; Start 12/27/19 at 16:00 Multivitamins 10 ml/Thiamine HCl 100 mg/Folic Acid 1 mg/Sodium Chloride 1,011.2 ml @ 100 mls/ hr DAILY IV Last administered on 12/29/19at 08:42; Start 12/28/19 at 09:00; Stop 12/31/19 at 19:07 Multivitamins (Thera M Plus) 1 tab DAILY PO ; Start 01/01/20 at 09:00 Folic Acid (Folic Acid) 1 mg DAILY PO ; Start 01/01/20 at 09:00 Thiamine Mononitrate (Vitamin B-1) 100 mg DAILY PO ; Start 01/01/20 at 09:00 Thiamine HCl 100 mg/Dextrose 51 ml @ 100 mls/hr DAILY IV ; Start 01/01/20 at 09:00; Stop 01/05/20 at 09:31; Status UNV Lorazepam (Ativan) 4 mg PRN Q1HR PRN PO For CIWA 8-14; Start 12/27/19 at 14:00 Lorazepam (Ativan) 8 mg PRN Q1HR PRN PO For CIWA 15 or greater; Start 12/27/19 at 14:00 Lorazepam (Ativan Inj) 2 mg PRN Q1HR PRN IV For CIWA 8-14 Last administered on 12/27/19at 15:15; Start 12/27/19 at 14:00 Lorazepam (Ativan Inj) 4 mg PRN Q1HR PRN IV For CIWA 15 or greater; Start 12/27/19 at 14:00 Haloperidol Lactate (Haldol Inj) 5 mg PRN Q4HRS PRN IVP Hallucinatns,Conf usn,Delirium; Start 12/27/19 at 14:00 Diphenhydramine HCl (Benadryl) 25 mg PRN Q15MIN PRN IVP EPS symptoms 2'Haldol admin; Start 12/27/19 at 14:00 Clonidine HCl (Catapres) 0.1 mg PRN Q1HR PRN PO SBP > 180 or DBP > 100, MRX3; Start 12/27/19 at 14:00 Lorazepam (Ativan Inj) 2 mg PRN Q15MIN PRN IV SEE COMMENTS; Start 12/27/19 at 14:00; Status UNV Lorazepam (Ativan Inj) 4 mg PRN Q15MIN PRN IV SEE COMMENTS; Start 12/27/19 at 14:00; Status UNV Pantoprazole Sodium (Protonix) 40 mg DAILYAC PO Last administered on 12/29/19at 08:41; Start 12/28/19 at 07:30 Albuterol/ Ipratropium (Duoneb) 3 ml RTQID NEB Last administered on 12/29/19at 12:30; Start 12/28/19 at 08:00 Active Scripts Active Catapres (Clonidine Hcl) 0.1 Mg Tablet 0.1 Mg PO PRN Q6HRS PRN 14 Days Up to TID for alcohol withdrawal symptoms for 2 weeks Cipro (Ciprofloxacin Hcl) 250 Mg Tablet 250 Mg PO BID 10 Days Lidocaine PATCH (Lidocaine) 1 Each Adh..patch 1 Patch TD DAILY Mag-Oxide (Magnesium Oxide) 400 Mg Tablet 400 Mg PO DAILY Thera-M Tablet (Multivits,Ca,Minerals/Iron/Fa) 1 Each Tablet 1 Tab PO DAILY 30 Days Vitamin B-1 (Thiamine Mononitrate) 100 Mg Tablet 100 Mg PO DAILY 30 Days Folic Acid 1 Mg Tablet 1 Mg PO DAILY 30 Days [Pantoprazole] 40 MG Tablet.dr 40 Mg PO DAILYAC 30 Days Reported Melatonin 3 Mg Tablet 1 Tab PO QHS Celexa (Citalopram Hydrobromide) 20 Mg Tablet 1 Tab PO DAILY Seroquel (Quetiapine Fumarate) 100 Mg Tablet 1 Tab PO QHS Vital Signs Vital Signs Date Time Temp Pulse Resp B/P (MAP) Pulse Ox O2 Delivery O2 Flow Rate FiO2 12/29/19 12:30 98 Room Air 12/29/19 11:23 97.8 64 18 135/79 (97) 97.8 Labs Laboratory Tests Test 12/27/19 17:25 12/27/19 20:52 12/28/19 07:25 12/28/19 10:58 Urine Collection Type Unknown Urine Color Yellow Urine Clarity Clear Urine pH 6.5 (<5.0-8.0) Urine Specific [place] 1.020 (1.000-1.030) Urine Protein Negative mg/dL (NEG-TRACE) Urine Glucose (UA) Negative mg/dL (NEG) Urine Ketones (Stick) Trace mg/dL (NEG) Urine Blood Negative (NEG) Urine Nitrite Positive (NEG) Urine Bilirubin Negative (NEG) Urine Urobilinogen Dipstick 1.0 mg/dL (0.2 mg/dL) Urine Leukocyte Esterase Trace (NEG) Urine RBC 0 /HPF (0-2) Urine WBC 1-4 /HPF (0-4) Urine Squamous Epithelial Cells Occ /LPF Urine Bacteria Many /HPF (0-FEW) Urine Mucus Slight /LPF Urine Opiates Screen Neg (NEG) Urine Methadone Screen Neg (NEG) Urine Barbiturates Neg (NEG) Urine Phencyclidine Screen Neg (NEG) Urine Amphetamine/Methamphetamine Pos (NEG) Urine Benzodiazepines Screen Neg (NEG) Urine Cocaine Screen Neg (NEG) Urine Cannabinoids Screen Neg (NEG) Urine Ethyl Alcohol Pos (NEG) Glucose (Fingerstick) 127 mg/dL (70-99) 101 mg/dL (70-99) 150 mg/dL (70-99) Test 12/28/19 16:40 12/28/19 21:04 12/29/19 07:23 12/29/19 10:51 Glucose (Fingerstick) 125 mg/dL (70-99) 143 mg/dL (70-99) 118 mg/dL (70-99) 118 mg/dL (70-99) Laboratory Tests Test 12/28/19 16:40 12/28/19 21:04 12/29/19 07:23 12/29/19 10:51 Glucose (Fingerstick) 125 mg/dL (70-99) 143 mg/dL (70-99) 118 mg/dL (70-99) 118 mg/dL (70-99) Allergies Allergies Coded Allergies Type Severity Reaction Last Updated Verified cyclobenzaprine HCl Allergy Intermediate rash 03/12/15 Yes Disposition/Orders: D/C to Home KAY GUAJARDO MD Dec 29, 2019 12:50
[2019-12-29] MEDS ORDERED: MAG30ORA2 PO (12:52)
[2019-12-29] MEDS ORDERED: PANT40TA77 PO (12:52)
--- NOTE | 2019-12-29 12:53 | DISCH ---
DISCHARGE INSTRUCTIONS Condition on Discharge Condition on Discharge: Stable Activity After Discharge Activity Instructions for Disc: Activity as tolerated Lifting Instructions after Dis: No heavy lifting Exercise Instruction after Dis: Progress as tolerated Driving Instructions after Dis: Do not drive, Do not drive today Weight Bearing Status after Di: As tolerated Diet after Discharge Diet after Discharge: Regular Diet Texture: Regular Liquid Texture: Thin Liquid Swallowing Supervision: None needed Checks after Discharge Checks after discharge: Check blood press - daily, Check blood sugar, ac/hs, Check your Temp as needed Contacting the DR. after DC Call your doctor for: If your condition worsens Treatment/Equipment after DC Adaptive Equipment Issued: None Warfarin Follow-Up Warfarin Follow UP: SEE PCP WEDNESDAY, ATTEND AA DAILY NO ETOH, OF METH USE KAY GUAJARDO MD Dec 29, 2019 12:53
--- NOTE | 2019-12-29 13:52 | NUR ---
SS following up with discharge planning. PAT team met with pt and provided resources for [facility] and [facility]. Pt declining need for services at this time. Pt's RN notified. SS will continue to follow for discharge planning.
[2019-12-29 15:25] VITALS: BP 112/64
--- NOTE | 2019-12-29 17:05 | NUR ---
Pt discharged to home. Discharge instructions reviewed with pt and he verbalized understanding.
[2020-01-01] MEDS ORDERED: MULTIVITAMIN with MINERAL TABLET. PO SCH (09:00)
[2020-01-01] MEDS ORDERED: THIAMINE INJ 100 MG in IV DEXTROSE 5% 50 ML IV SCH (09:00)
[2020-01-01] MEDS ORDERED: THIAMINE 100 MG TABLET. PO SCH (09:00)
[2020-01-01] MEDS ORDERED: FOLIC ACID 1 MG TABLET. PO SCH (09:00)
== END 2019-12-29 17:09 | disposition home or self-care (01) | DRG 897 ==
LOC: ER 03:17 → 5 SOUTH 05:25 → OBSVTOIN 11:09 → 6 SOUTH 17:25
PROVIDERS: ADMIT Internal Medicine; ATTEND Internal Medicine
DX: F10.229 Alcohol dependence with intoxication, unspecified (principal); R45.851 Suicidal ideations; F15.10 Other stimulant abuse, uncomplicated; E11.9 Type 2 diabetes mellitus without complications; F17.210 Nicotine dependence, cigarettes, uncomplicated; F43.10 Post-traumatic stress disorder, unspecified; I10 Essential (primary) hypertension; R56.9 Unspecified convulsions; Z82.49 Family history of ischemic heart disease and other diseases of the circulatory system; F32.9 Major depressive disorder, single episode, unspecified; F41.9 Anxiety disorder, unspecified; G89.29 Other chronic pain; Z93.3 Colostomy status; Z71.6 Tobacco abuse counseling; Z79.899 Other long term (current) drug therapy
CPT/HCPCS: 36415; 80053; 80307; 81001; 82962; 85025; 87086; 94640; 94760; 96361; 96365; 96375; G0378; G0379; G0480; J1650; J2060; J2405; J3411; J3490; J7030; J7060; 99285-25

== ENCOUNTER 2020-02-20 03:17 | Emergency (ER) | payer SELFPAY ==
[~2020-02-20] VITALS: Ht 175.3 cm; Wt 93.2 kg
[~2020-02-20 03:17] MED LIST changes: +MAG30ORA2 PO; +PANT40TA77 PO
[2020-02-20 03:35] LABS: BASO % 1 % (0-3); EOS % 1 % (0-3); HEMATOCRIT 45.7 % (39.0-53.0); HEMOGLOBIN 15.8 g/dL (13.0-17.5); LYMPH # 2.7 x10^3/uL (1.0-4.8); LYMPH % 49 % (24-48); MEAN CORPUSCULAR HEMOGLOBIN 30 pg (25-35); MEAN CORPUSCULAR HGB CONC 35 g/dL (31-37); MEAN CORPUSCULAR VOLUME 87 fL (79-100); MONO # 0.3 x10^3/uL (0.0-1.1); MONO % 5 % (0-9); NEUT # 2.5 x10^3/uL (1.8-7.7); NEUT % 45 % (31-73); PLATELET COUNT 197 x10^3/uL (140-400); RED BLOOD COUNT 5.25 x10^6/uL (4.30-5.70); RED CELL DISTRIBUTION WIDTH 14.2 % (11.5-14.5); WHITE BLOOD COUNT 5.5 x10^3/uL (4.0-11.0)
[2020-02-20 03:42] LABS: CALCIUM 7.9 mg/dL (8.5-10.1); CREATININE 0.8 mg/dL (0.7-1.3); POTASSIUM 3.7 mmol/L (3.5-5.1)
[2020-02-20 03:48] LABS: ALBUMIN 3.8 g/dL (3.4-5.0); DIRECT BILIRUBIN 0.2 mg/dL (0.0-0.2); MAGNESIUM 1.7 mg/dL (1.8-2.4); TOTAL BILIRUBIN 0.6 mg/dL (0.2-1.0); TOTAL PROTEIN 7.5 g/dL (6.4-8.2)
--- NOTE | 2020-02-20 03:49 | PHYS DOC ---
Past Medical History Past Medical History: Alcoholism, Anxiety, Depression, Diabetes-Type II, Hypertension, Other Additional Past Medical Histor: chronic pain, PTSD, substance abuse Past Surgical History: Other Additional Past Surgical Histo: abd surgery with colostomy and take down later (due to injury) Smoking Status: Current Every Day Smoker Alcohol Use: Heavy Drug Use: Marijuana, Methamphetamine General Adult EDM: Chief Complaint: ALCOHOL INTOXICATION HPI: HPI: Patient is a 44 year old male who presents via EMS with report of body pain all over. Patient reportedly has been drinking alcohol and also took methamphetamine yesterday. Patient rates the pain in his body is severe and states that it is everywhere. Patient does indicate that he has a history of alcohol withdrawal seizures. [] Review of Systems: Review of Systems: Constitutional: Denies fever or chills. [] Respiratory: Denies cough or shortness of breath. [] Cardiovascular: Denies chest pain or edema. [] GI: Denies abdominal pain, nausea, vomiting or diarrhea. [] Musculoskeletal: Complains of diffuse body aches/pain. [] Integument: Denies rash. [] Neurologic: Denies headache, focal weakness or sensory changes. [] A full 10 point review of systems has been reviewed and is otherwise negative. Heart Score: Risk Factors: Risk Factors: DM, Current or recent (<one month) smoker, HTN, HLP, family history of CAD, obesity. Risk Scores: Score 0 - 3: 2.5% MACE over next 6 weeks - Discharge Home Score 4 - 6: 20.3% MACE over next 6 weeks - Admit for Clinical Observation Score 7 - 10: 72.7% MACE over next 6 weeks - Early Invasive Strategies Current Medications: Current Medications Medications (Trade) Dose Ordered Sig/[facility] Start Time Stop Time Status Last Admin Dose Admin Ketorolac Tromethamine (Toradol 30mg Vial) 30 mg 1X ONCE 02/20/20 04:00 02/20/20 04:01 02/20/20 03:33 30 MG Multivitamins 10 ml/Thiamine HCl 100 mg/Folic Acid 1 mg/Sodium Chloride 1,011.2 ml @ 1,000 mls/ hr 1X ONCE 02/20/20 04:00 02/20/20 05:00 02/20/20 03:33 1,000 MLS/HR Allergies: Allergies: Allergies Coded Allergies Type Severity Reaction Last Updated Verified cyclobenzaprine HCl Allergy Intermediate rash 03/12/15 Yes Physical Exam: PE: Constitutional: Well developed, well nourished, no acute distress, non-toxic appearance. [] HENT: Normocephalic, atraumatic, bilateral external ears normal, oropharynx moist, no oral exudates, nose normal. [] Eyes: PERRLA, EOMI, conjunctiva normal, no discharge. [] Neck: Normal range of motion, no tenderness, supple. [] Cardiovascular: Tachycardic rate with regular rhythm [] Lungs & Thorax: Bilateral breath sounds clear to auscultation [] Abdomen: Bowel sounds normal, soft, no tenderness. [] Skin: Warm, dry, no erythema, no rash. [] Extremities: No tenderness, no cyanosis, no clubbing, ROM intact. [] Neurologic: Alert and oriented X 3, no focal deficits noted. [] Current Patient Data: Labs: Laboratory Tests Test 02/20/20 03:23 White Blood Count 5.5 x10^3/uL (4.0-11.0) Red Blood Count 5.25 x10^6/uL (4.30-5.70) Hemoglobin 15.8 g/dL (13.0-17.5) Hematocrit 45.7 % (39.0-53.0) Mean Corpuscular Volume 87 fL (79-100) Mean Corpuscular Hemoglobin 30 pg (25-35) Mean Corpuscular Hemoglobin Concent 35 g/dL (31-37) Red Cell Distribution Width 14.2 % (11.5-14.5) Platelet Count 197 x10^3/uL (140-400) Neutrophils (%) (Auto) 45 % (31-73) Lymphocytes (%) (Auto) 49 % (24-48) H Monocytes (%) (Auto) 5 % (0-9) Eosinophils (%) (Auto) 1 % (0-3) Basophils (%) (Auto) 1 % (0-3) Neutrophils # (Auto) 2.5 x10^3/uL (1.8-7.7) Lymphocytes # (Auto) 2.7 x10^3/uL (1.0-4.8) Monocytes # (Auto) 0.3 x10^3/uL (0.0-1.1) Eosinophils # (Auto) 0.0 x10^3/uL (0.0-0.7) Basophils # (Auto) 0.0 x10^3/uL (0.0-0.2) Laboratory Tests 02/20/20 03:23 EKG: EKG: [] Radiology/Procedures: Radiology/Procedures: [] Course & Med Decision Making: Course & Med Decision Making Pertinent Labs and Imaging studies reviewed. (See chart for details) [] Dragon Disclaimer: Dragon Disclaimer: This electronic medical record was generated, in whole or in part, using a voice recognition dictation system. Departure Departure Impression: Primary Impression: Alcohol intoxication Qualified Codes: F10.920 - Alcohol use, unspecified with intoxication, uncomplicated Additional Impression: UTI (urinary tract infection) Qualified Codes: N39.0 - Urinary tract infection, site not specified Disposition: HOME, SELF-CARE Condition: STABLE Referrals: NO PCP (PCP) Patient Instructions: Alcohol Intoxication, Urinary Tract Infection Scripts Sulfamethoxazole/Trimethoprim (BACTRIM DS TABLET) 1 Each Tablet 1 TAB PO BID for 10 Days, #20 TAB 0 Refills Prov: BUDDY JUAREZ Jr. DO 02/20/20 BUDDY JUAREZ Jr. DO February 20, 2020 03:48
[2020-02-20 03:55] LABS: BILIRUBIN,URINE NEGATIVE (NEG); CLARITY,URINE HAZY; COLOR,URINE YELLOW; NITRITE,URINE POSITIVE (NEG); PROTEIN,URINE 100 mg/dL (NEG-TRACE); RBC,URINE 0 /HPF (0-2); UROBILINOGEN,URINE 0.2 mg/dL (0.2 mg/dL); WBC,URINE 20-40 /HPF (0-4)
[2020-02-20 03:56] LABS: BACTERIA,URINE MANY /HPF (0-FEW); SQUAMOUS EPITHELIAL CELL,UR OCC /LPF
[2020-02-20 04:00] LABS: AMPHETAMINE/METHAMPHETAMINE POS (NEG); BARBITURATES NEG (NEG); BENZODIAZEPINES NEG (NEG); CANNABINOIDS NEG (NEG); COCAINE NEG (NEG); METHADONE NEG (NEG); OPIATES NEG (NEG); PHENCYCLIDINE NEG (NEG)
[2020-02-20] MEDS ORDERED: MULTIVIT INFUSN,ADULT 4,VIT K 10 ML, THIAMINE INJ 100 MG, FOLIC ACID INJ 1 MG in IV NOR... IV ONE (04:00)
[2020-02-20] MEDS ORDERED: KETOROLAC 30 MG/ML VIAL. IVP ONE (04:00)
--- NOTE | 2020-02-20 04:18 | EKG ---
[facility] [address] [place] [address] Test Date: 2020-02-20 Test Time: 03:18:59 Pat Name: RADHA LIN Department: Room: Gender: M [employer]: : 1975 Requested By: BUDDY JUAREZ Order Number: [id number] Reading MD: Albin Mueller Measurements Intervals Downing Rate: 114 P: 49 KS: 142 QRS: 24 QRSD: 92 T: 24 QT: 324 QTc: 450 Interpretive Statements SINUS TACHYCARDIA Electronically Signed On 02-20-2020 7:56:12 CDT by Albin Mueller
[2020-02-20] MEDS ORDERED: cefTRIAXone IV Push 1 GM VIAL. IVP ONE (05:00)
[2020-02-20] MEDS ORDERED: SULF1TAB24 PO (05:41)
[2020-02-20 05:44] VITALS: BP 130/90
== END 2020-02-20 05:45 | disposition home or self-care (01) ==
LOC: ER 03:17
DX: F10.229 Alcohol dependence with intoxication, unspecified (principal); N39.0 Urinary tract infection, site not specified; I47.1 Supraventricular tachycardia; F41.9 Anxiety disorder, unspecified; F32.9 Major depressive disorder, single episode, unspecified; E11.9 Type 2 diabetes mellitus without complications; I10 Essential (primary) hypertension; G89.29 Other chronic pain; F17.200 Nicotine dependence, unspecified, uncomplicated; F12.90 Cannabis use, unspecified, uncomplicated; F15.90 Other stimulant use, unspecified, uncomplicated; Z98.890 Other specified postprocedural states; Z88.8 Allergy status to other drugs, medicaments and biological substances
CPT/HCPCS: 36415; 80048; 80076; 80307; 81001; 82550; 83735; 85025; 87086; 93005; 96365; 96375; 99285; G0480; J0696; J1885; J3411; J3490; J7030

== ENCOUNTER 2020-05-12 01:40 | Inpatient (IN) | payer SELFPAY ==
[~2020-05-12] VITALS: Ht 175.3 cm; Wt 87.5 kg
[~2020-05-12 01:40] MED LIST changes: +SULF1TAB24 PO
[2020-05-12 02:04] LABS: BILIRUBIN,URINE SMALL (NEG); CLARITY,URINE CLOUDY; COLOR,URINE AMBER; NITRITE,URINE POSITIVE (NEG); PH,URINE 6.5 (<5.0-8.0); PROTEIN,URINE 100 mg/dL (NEG-TRACE)
[2020-05-12 02:07] LABS: SQUAMOUS EPITHELIAL CELL,UR OCC /LPF
[2020-05-12 02:08] LABS: AMORPHOUS SEDIMENT,UR PRESENT /HPF; BACTERIA,URINE MANY /HPF (0-FEW); RBC,URINE 0 /HPF (0-2)
[2020-05-12 02:10] LABS: AMPHETAMINE/METHAMPHETAMINE POS (NEG); BARBITURATES NEG (NEG); BENZODIAZEPINES NEG (NEG); CANNABINOIDS POS (NEG); COCAINE NEG (NEG); METHADONE NEG (NEG); OPIATES NEG (NEG); PHENCYCLIDINE NEG (NEG)
[2020-05-12 02:13] LABS: BASO # 0.1 x10^3/uL (0.0-0.2); BASO % 1 % (0-3); EOS % 1 % (0-3); HEMOGLOBIN 16.1 g/dL (13.0-17.5); LYMPH # 2.6 x10^3/uL (1.0-4.8); LYMPH % 49 % (24-48); MEAN CORPUSCULAR HEMOGLOBIN 31 pg (25-35); MEAN CORPUSCULAR HGB CONC 35 g/dL (31-37); MEAN CORPUSCULAR VOLUME 90 fL (79-100); MONO # 0.4 x10^3/uL (0.0-1.1); MONO % 8 % (0-9); NEUT # 2.2 x10^3/uL (1.8-7.7); NEUT % 42 % (31-73); PLATELET COUNT 216 x10^3/uL (140-400); RED BLOOD COUNT 5.13 x10^6/uL (4.30-5.70); RED CELL DISTRIBUTION WIDTH 16.4 % (11.5-14.5); WHITE BLOOD COUNT 5.3 x10^3/uL (4.0-11.0)
--- NOTE | 2020-05-12 02:14 | PHYS DOC ---
Past Medical History Past Medical History: Alcoholism, Anxiety, Depression, Diabetes-Type II, Hypertension, Other Additional Past Medical Histor: chronic pain, PTSD, substance abuse Past Medical History Limited secondary to alcohol intoxication Past Surgical History: Other Additional Past Surgical Histo: abd surgery with colostomy and take down later (due to injury) Past Surgical History Limited secondary to alcohol intoxication Smoking Status: Current Every Day Smoker Alcohol Use: Heavy Drug Use: Marijuana, Methamphetamine Social History Limited secondary to alcohol intoxication General Adult EDM: Chief Complaint: SUICDAL IDEATION HPI: HPI: 44-year-old male presents via EMS after [place] [address] [place] bystander just prior to arrival. Patient reports he has been having suicidal ideation over the past few days. Reports history of alcoholism in which he typically drinks a fifth of vodka. Tonight he drank approximately 2 liters and smoked some "roaches" (THC). Reports has been drinking heavily over the last 3 days. Reports history of prior suicidal attempt. Reports history of seizures due to ETOH withdrawal. Denies any other coingestions. History of present illness limited secondary to alcohol intoxication Review of Systems: Review of Systems: Review of systems limited secondary to alcohol intoxication Current Medications: Current Medications Medications (Trade) Dose Ordered Sig/Negin Start Time Stop Time Status Last Admin Dose Admin Multivitamins 10 ml/Thiamine HCl 100 mg/Folic Acid 1 mg/Sodium Chloride 1,011.2 ml @ 1,000.088 mls/hr 1X ONCE 05/12/20 02:30 05/12/20 03:30 05/12/20 02:05 1,000.088 MLS/HR Allergies: Allergies: Allergies Coded Allergies Type Severity Reaction Last Updated Verified cyclobenzaprine HCl Allergy Intermediate rash 03/12/15 Yes Physical Exam: PE: Constitutional: Well developed, well nourished, tearful, intoxicated HENT: Normocephalic, atraumatic Eyes: PERRL, EOMI, conjunctiva injected bilaterally, no discharge, horizontal nystagmus noted Neck: Normal range of motion, supple Lungs & Thorax: No respiratory distress, equal chest rise and fall Abdomen: Soft, no tenderness, no guarding/rebound tenderness/distention Skin: Warm, dry, no erythema, no rash Extremities: No tenderness, ROM intact, no edema Neurologic: Alert and oriented X 3, no focal deficits noted Psychologic: Affect anxious, judgment abnormal, reports suicidal ideation with plan Current Patient Data: Labs: Laboratory Tests Test 05/12/20 01:55 Urine Collection Type Unknown Urine Color Nathalie Urine Clarity Cloudy Urine pH 6.5 (<5.0-8.0) Urine Specific [place] 1.025 (1.000-1.030) Urine Protein 100 mg/dL (NEG-TRACE) Urine Glucose (UA) Negative mg/dL (NEG) Urine Ketones (Stick) Trace mg/dL (NEG) Urine Blood Negative (NEG) Urine Nitrite Positive (NEG) Urine Bilirubin Small (NEG) Urine Urobilinogen Dipstick 1.0 mg/dL (0.2 mg/dL) Urine Leukocyte Esterase Moderate (NEG) Urine RBC 0 /HPF (0-2) Urine WBC 11-20 /HPF (0-4) Urine Squamous Epithelial Cells Occ /LPF Urine Amorphous Sediment Present /HPF Urine Bacteria Many /HPF (0-FEW) Urine Mucus Marked /LPF EKG: EKG: @0207 NSR at 95bpm, NO ST elevation, QRS 102ms, QT/QTc 340/430ms Radiology/Procedures: Radiology/Procedures: [] Course & Med Decision Making: Course & Med Decision Making Pertinent Lab studies reviewed. (See chart for details) Patient presents via EMS with report of suicidal ideation with plan to [place] [id number]. Patient has history of alcoholism however has been excessively drinking over the last 3 days. Patient does appear acutely intoxicated. Banana bag provided. Labs obtained and posted to chart. Tylenol/salicylate negative. EtOH 380. Urine drug screen positive for THC and methamphetamines. Hypokalemia and hypomagnesemia addressed. UA with signs of infection. Empiric antibiotic initiated. Patient reports history of prior delirium tremens secondary to alcohol withdrawal. Patient requiring admission for further evaluation and treatment with concern for impending DTs. Discussed with Dr. Doan (hospitalist) who is in agreement with admission. Consult placed for PAT evaluation. Discussed findings and plan with patient, who acknowledges understanding and agreement. Regis Disclaimer: Regis Disclaimer: This electronic medical record was generated, in whole or in part, using a voice recognition dictation system. Departure Departure Impression: Primary Impression: ETOH abuse Additional Impressions: Suicidal ideations At risk for seizures Hypokalemia Hypomagnesemia UTI (urinary tract infection) Qualified Codes: N30.00 - Acute cystitis without hematuria Disposition: ADMITTED INPATIENT Admitting Physician: ALO Grande) Condition: STABLE Referrals: NO PCP (PCP) Justicifation of Admission Dx: Justifications for Admission: Justification of Admission Dx: Yes Comments: ETOH abuse, concern for impending DTs, Suicidal Ideation SUDHAKAR HERNANDEZ DO May 12, 2020 02:14
[2020-05-12] MEDS ORDERED: ONDANSETRON PF 4 MG/2 ML VIAL. IV PRN (02:15)
[2020-05-12 02:22] LABS: CALCIUM 9.5 mg/dL (8.5-10.1); CREATININE 0.8 mg/dL (0.7-1.3); POTASSIUM 3.1 mmol/L (3.5-5.1); PROTHROMBIN TIME PATIENT 12.9 SEC (11.7-14.0)
[2020-05-12 02:27] LABS: ALBUMIN 4.2 g/dL (3.4-5.0); ALBUMIN/GLOBULIN RATIO 1.2 (1.0-1.7); MAGNESIUM 1.4 mg/dL (1.8-2.4); TOTAL BILIRUBIN 0.7 mg/dL (0.2-1.0); TOTAL PROTEIN 7.7 g/dL (6.4-8.2)
[2020-05-12] MEDS ORDERED: MULTIVIT INFUSN,ADULT 4,VIT K 10 ML, THIAMINE INJ 100 MG, FOLIC ACID INJ 1 MG in IV NOR... IV ONE ×2 (02:30→11:00)
[2020-05-12 02:35] LABS: ACETAMIN < 2 mcg/ml (10-30); ETHANOL 380 mg/dL (0-10); SALIC < 2.8 mg/dL (2.8-20.0)
[2020-05-12] MEDS ORDERED: POTASSIUM CHLORIDE 20 MEQ TABLET.ER. PO ONE (03:00)
[2020-05-12] MEDS ORDERED: MAGNESIUM SULFATE 2GM 50 ML IV ONE (03:00)
[2020-05-12] MEDS ORDERED: KETOROLAC 15 MG/ML VIAL. IVP ONE (03:00)
[2020-05-12] MEDS ORDERED: cefTRIAXone IV Push 1 GM VIAL. IVP ONE (03:00)
[2020-05-12 04:00] VITALS: BP 125/75
[2020-05-12] MEDS: traMADol 50 MG TABLET PO PRN (04:59)
[2020-05-12 07:02] VITALS: BP 120/78
[2020-05-12 11:00] VITALS: BP 135/73
--- NOTE | 2020-05-12 12:58 | SSS ---
ADMIT DATE: 05/12/2020 CHIEF COMPLAINT: Suicidal ideation. HISTORY OF PRESENT ILLNESS: The patient is a pleasant 44-year-old male who I think drank too much. [place] [address] A bystander helped him get away from the bridge and the patient was brought in by EMS. Apparently, he drank 2 liters of alcohol and smoked some marijuana. He has been drinking heavy for quite some time. The patient has now been admitted to the medical floor where he has 1:1 observer. He is sleeping. PAST MEDICAL HISTORY: Alcoholism, anxiety, depression, diabetes, hypertension, chronic pain, PTSD, substance abuse, tobacco abuse, methamphetamine abuse, marijuana use. ALLERGIES: CYCLOBENZAPRINE. FAMILY HISTORY: Diabetes. SOCIAL HISTORY: He smokes, drinks, and takes drugs. MEDICATIONS: Reviewed, please refer to the MRAD. REVIEW OF SYSTEMS: Unable to obtain. The patient is sleeping. PHYSICAL EXAMINATION: VITALS: Within normal limits and are stable. GENERAL: He is sleeping. HEENT: Normal cephalic atraumatic, external auditory canals are patent EYES: Extraocular muscles are intact, pupils are equally round and reactive to light and accommodation MUSCULOSKELETAL: Well developed, well nourished, good range of motion ENDOCRINE: No thyromegaly was palpated LYMPHATICS: No cervical chain or axillary nodes were noted HEMATOPOIETIC: No bruising NECK: Supple, no JVD, no thyromegaly was noted. LUNGS: Clear to auscultation in all lung potts without rhonchi or wheezing. HEART: RRR, S1, S2 present. Peripheral pulses intact, no obvious murmurs were noted. ABDOMEN: Soft, nontender. Positive bowel sounds no organomegaly, normal bowel sounds. EXTREMITIES: Without any cyanosis, clubbing, or edema. Pedal pulses intact, Homans sign is negative. NEUROLOGIC: He is sleeping. PSYCHIATRIC: He is sleeping. SKIN: No ulcerations or rashes, good skin turgor, no jaundice. VASCULAR: Good capillary refill, neurovascular bundle appears to be intact. LABORATORY DATA: Hematology is normal. Electrolytes are normal other than a potassium of 3.1. INR is 1. Drug screen positive for methamphetamine, cannabinoids and alcohol. ASSESSMENT AND PLAN: Suicidal ideation and polysubstance abuse. The patient has been admitted. We are consulting the psychiatric assessment team. He does have an incidental finding of urinary tract infection with moderate leukocyte esterase and white cells in his urine. We will go ahead and place him on IV antibiotics. Trend labs, home meds, DVT prophylaxis. Full code. 1:1 observation. PROGNOSIS: Guarded. PAKO PANTOJA DO DR: MADISON/jacque JOB#: [id number] / [id number]
[2020-05-12 14:57] VITALS: BP 127/80
[2020-05-12 19:00] VITALS: BP 132/94
[2020-05-12 23:00] VITALS: BP 126/71
[2020-05-13 03:00] VITALS: BP 122/72
[2020-05-13] MEDS: cefTRIAXone IV Push 1 GM VIAL. IVP SCH (05:38)
[2020-05-13 07:00] VITALS: BP 128/70
[2020-05-13] MEDS ORDERED: cefTRIAXone IV Push 1 GM VIAL. IVP SCH (09:00)
[2020-05-13] MEDS: THIAMINE 100 MG TABLET. PO SCH ×2 (09:00→11:05)
--- NOTE | 2020-05-13 09:31 | PDOC ---
PROGRESS NOTES History of Present Illness History of Present Illness ASSESSMENT AND PLAN: Suicidal ideation and polysubstance abuse. severe alcohol abuse admitted. consult psychiatric assessment team. consult DR FRANCE have an incidental finding of urinary tract infection with moderate leukocyte esterase and white cells in his urine. IV antibiotics. Trend labs, home meds, DVT prophylaxis. Full code. 1:1 observation. 38 MIN pt exam, chart review > 50% of time spent with exam,, chart review, pt care coordination Vitals Vitals Vital Signs Date Time Temp Pulse Resp B/P (MAP) Pulse Ox O2 Delivery O2 Flow Rate FiO2 05/13/20 07:00 98.4 72 19 128/70 (89) 96 Room Air 98.4 Physical Exam Physical Exam withdrawn General: Alert, Oriented X3, Cooperative, No acute distress Heart: Regular rate, Normal S1, Normal S2 Lungs: Clear Abdomen: Normal bowel sounds, Soft, No tenderness Extremities: No clubbing, No cyanosis, No edema Skin: No significant lesion Assessment and Plan Assessmemt and Plan Problems Medical Problems: (1) At risk for seizures Status: Acute (2) Hypokalemia Status: Acute (3) Hypomagnesemia Status: Acute Comment Review of Relevant I have reviewed the following items casi (where applicable) has been applied. Labs Laboratory Tests Test 05/12/20 01:55 05/12/20 02:00 Urine Collection Type Unknown Urine Color Nathalie Urine Clarity Cloudy Urine pH 6.5 (<5.0-8.0) Urine Specific [place] 1.025 (1.000-1.030) Urine Protein 100 mg/dL (NEG-TRACE) Urine Glucose (UA) Negative mg/dL (NEG) Urine Ketones (Stick) Trace mg/dL (NEG) Urine Blood Negative (NEG) Urine Nitrite Positive (NEG) Urine Bilirubin Small (NEG) Urine Urobilinogen Dipstick 1.0 mg/dL (0.2 mg/dL) Urine Leukocyte Esterase Moderate (NEG) Urine RBC 0 /HPF (0-2) Urine WBC 11-20 /HPF (0-4) Urine Squamous Epithelial Cells Occ /LPF Urine Amorphous Sediment Present /HPF Urine Bacteria Many /HPF (0-FEW) Urine Mucus Marked /LPF Urine Opiates Screen Neg (NEG) Urine Methadone Screen Neg (NEG) Urine Barbiturates Neg (NEG) Urine Phencyclidine Screen Neg (NEG) Urine Amphetamine/Methamphetamine Pos (NEG) Urine Benzodiazepines Screen Neg (NEG) Urine Cocaine Screen Neg (NEG) Urine Cannabinoids Screen Pos (NEG) Urine Ethyl Alcohol Pos (NEG) White Blood Count 5.3 x10^3/uL (4.0-11.0) Red Blood Count 5.13 x10^6/uL (4.30-5.70) Hemoglobin 16.1 g/dL (13.0-17.5) Hematocrit 46.0 % (39.0-53.0) Mean Corpuscular Volume 90 fL (79-100) Mean Corpuscular Hemoglobin 31 pg (25-35) Mean Corpuscular Hemoglobin Concent 35 g/dL (31-37) Red Cell Distribution Width 16.4 % (11.5-14.5) Platelet Count 216 x10^3/uL (140-400) Neutrophils (%) (Auto) 42 % (31-73) Lymphocytes (%) (Auto) 49 % (24-48) Monocytes (%) (Auto) 8 % (0-9) Eosinophils (%) (Auto) 1 % (0-3) Basophils (%) (Auto) 1 % (0-3) Neutrophils # (Auto) 2.2 x10^3/uL (1.8-7.7) Lymphocytes # (Auto) 2.6 x10^3/uL (1.0-4.8) Monocytes # (Auto) 0.4 x10^3/uL (0.0-1.1) Eosinophils # (Auto) 0.0 x10^3/uL (0.0-0.7) Basophils # (Auto) 0.1 x10^3/uL (0.0-0.2) Prothrombin Time 12.9 SEC (11.7-14.0) Prothromb Time International Ratio 1.0 (0.8-1.1) Activated Partial Thromboplast Time 29 SEC (24-38) Sodium Level 143 mmol/L (136-145) Potassium Level 3.1 mmol/L (3.5-5.1) Chloride Level 102 mmol/L (98-107) Carbon Dioxide Level 28 mmol/L (21-32) Anion Gap 13 (6-14) Blood Urea Nitrogen 11 mg/dL (8-26) Creatinine 0.8 mg/dL (0.7-1.3) Estimated GFR (Cockcroft-Gault) 106.0 BUN/Creatinine Ratio 14 (6-20) Glucose Level 162 mg/dL (70-99) Calcium Level 9.5 mg/dL (8.5-10.1) Magnesium Level 1.4 mg/dL (1.8-2.4) Total Bilirubin 0.7 mg/dL (0.2-1.0) Aspartate Amino Transf (AST/SGOT) 50 U/L (15-37) Alanine Aminotransferase (ALT/SGPT) 45 U/L (16-63) Alkaline Phosphatase 77 U/L (46-116) Total Protein 7.7 g/dL (6.4-8.2) Albumin 4.2 g/dL (3.4-5.0) Albumin/Globulin Ratio 1.2 (1.0-1.7) Salicylates Level < 2.8 mg/dL (2.8-20.0) Salicylate Last Dose Date Unk Salicylate Last Dose Time Unk Acetaminophen Level < 2 mcg/ml (10-30) Acetaminophen Last Dose Date Unk Acetaminophen Last Dose Time Unk Ethyl Alcohol Level 380 mg/dL (0-10) Medications Current Medications Multivitamins 10 ml/Thiamine HCl 100 mg/Folic Acid 1 mg/Sodium Chloride 1,011.2 ml @ 1,000.088 mls/hr 1X ONCE IV Last administered on 05/12/20at 02:05; Start 05/12/20 at 02:30; Stop 05/12/20 at 03:30; Status DC Ondansetron HCl (Zofran) 4 mg PRN Q8HRS PRN IV NAUSEA/VOMITING 1ST CHOICE Last administered on 05/12/20at 21:02; Start 05/12/20 at 02:15; Stop 05/13/20 at 02:14; Status DC Lorazepam (Ativan Inj) 1 mg PRN Q1HR PRN IV For CIWA 8-14 Last administered on 05/12/20at 04:59; Start 05/12/20 at 02:15 Lorazepam (Ativan Inj) 2 mg PRN Q1HR PRN IV For CIWA 15 or greater Last administered on 05/12/20at 17:30; Start 05/12/20 at 02:15 Ketorolac Tromethamine (Toradol 15mg Vial) 15 mg 1X ONCE IVP Last administered on 05/12/20at 02:45; Start 05/12/20 at 03:00; Stop 05/12/20 at 03:01; Status DC Potassium Chloride (Klor-Con) 40 meq 1X ONCE PO Last administered on 05/12/20at 02:45; Start 05/12/20 at 03:00; Stop 05/12/20 at 03:01; Status DC Ceftriaxone Sodium (Rocephin) 1 gm 1X ONCE IVP Last administered on 05/12/20at 03:08; Start 05/12/20 at 03:00; Stop 05/12/20 at 03:01; Status DC Magnesium Sulfate 50 ml @ 25 mls/hr 1X ONCE IV Last administered on 05/12/20at 03:07; Start 05/12/20 at 03:00; Stop 05/12/20 at 04:59; Status DC Tramadol HCl (Ultram) 50 mg PRN Q6HRS PRN PO MODERATE PAIN 4-6 Last administered on 05/12/20at 04:59; Start 05/12/20 at 05:00 Multivitamins 10 ml/Thiamine HCl 100 mg/Folic Acid 1 mg/Sodium Chloride 1,011.2 ml @ 1,000.088 mls/hr 1X ONCE IV Last administered on 05/12/20at 10:28; Start 05/12/20 at 11:00; Stop 05/12/20 at 12:00; Status DC Ceftriaxone Sodium (Rocephin) 1 gm Q24H IVP ; Start 05/13/20 at 09:00; Status Cancel Thiamine Mononitrate (Vitamin B-1) 100 mg DAILY PO ; Start 05/13/20 at 09:00 Ceftriaxone Sodium (Rocephin) 1 gm Q24H IVP Last administered on 05/13/20at 05 :38; Start 05/13/20 at 06:00 Ondansetron HCl (Zofran) 4 mg PRN Q6HRS PRN IVP NAUSEA/VOMITING 1ST CHOICE; Start 05/13/20 at 05:45 Active Scripts Active Bactrim Ds Tablet (Sulfamethoxazole/Trimethoprim) 1 Each Tablet 1 Tab PO BID 10 Days Pantoprazole Sodium (Pantoprazole Sodium) 40 Mg Tablet.dr 40 Mg PO DAILYAC 30 Days Mag-Al Plus Xs Suspension (Mag Hydrox/Al Hydrox/Simeth) 30 Ml Oral.susp 30 Ml PO PRN DAILY PRN 30 Days Catapres (Clonidine Hcl) 0.1 Mg Tablet 0.1 Mg PO PRN Q6HRS PRN 14 Days Up to TID for alcohol withdrawal symptoms for 2 weeks Lidocaine PATCH (Lidocaine) 1 Each Adh..patch 1 Patch TD DAILY Mag-Oxide (Magnesium Oxide) 400 Mg Tablet 400 Mg PO DAILY Thera-M Tablet (Multivits,Ca,Minerals/Iron/Fa) 1 Each Tablet 1 Tab PO DAILY 30 Days Vitamin B-1 (Thiamine Mononitrate) 100 Mg Tablet 100 Mg PO DAILY 30 Days Folic Acid 1 Mg Tablet 1 Mg PO DAILY 30 Days [Pantoprazole] 40 MG Tablet.dr 40 Mg PO DAILYAC 30 Days Reported Melatonin 3 Mg Tablet 1 Tab PO QHS Celexa (Citalopram Hydrobromide) 20 Mg Tablet 1 Tab PO DAILY Seroquel (Quetiapine Fumarate) 100 Mg Tablet 1 Tab PO QHS Vitals/I & O Vital Sign - Last 24 Hours 05/12/20 05/12/20 05/12/20 05/12/20 11:00 14:57 19:00 20:00 Temp 97.9 97.9 100.9 97.9 97.9 100.9 Pulse 92 97 96 Resp 24 26 24 B/P (MAP) 135/73 (93) 127/80 (96) 132/94 (107) Pulse Ox 97 96 97 O2 Delivery Room Air Room Air Room Air Room Air 05/12/20 05/13/20 05/13/20 23:00 03:00 07:00 Temp 99.9 98.8 98.4 99.9 98.8 98.4 Pulse 83 69 72 Resp 20 20 19 B/P (MAP) 126/71 (89) 122/72 (89) 128/70 (89) Pulse Ox 97 95 96 O2 Delivery Room Air Room Air Room Air Intake and Output 05/12/20 05/12/20 05/13/20 15:00 23:00 07:00 Intake Total 2600 ml 1300 ml 700 ml Output Total 400 ml 1400 ml Balance 2600 ml 900 ml -700 ml Justicifation of Admission Dx: Justifications for Admission: Justification of Admission Dx: Yes KAY GUAJARDO MD May 13, 2020 09:31
--- NOTE | 2020-05-13 10:05 | NUR ---
[facility] following. Discussed with RN, pt tried to end his life by jumping off a bridge [place] [id number], however could not fit through the railing. Meth and ETOH +. Boo from [facility] coming to see pt today. [facility] will continue to follow. Addendum: 05/13/20 at 1208 by THEODORE RINALDI Per Boo, pt withdrawing, and has seizures when he withdraws. Pt will have to withdraw here and then can get to [facility]. Pt still reporting SI. RN notified.
[2020-05-13 11:00] VITALS: BP 126/70
[2020-05-13] MEDS ORDERED: HALOPERIDOL LACTATE 5 MG/ML VIAL. IVP PRN (13:45)
[2020-05-13] MEDS ORDERED: POTASSIUM CHLORIDE 20 MEQ TABLET.ER. PO ONE (13:45)
[2020-05-13] MEDS ORDERED: cloNIDine HCL 0.1 MG TABLET PO PRN (13:45)
[2020-05-13] MEDS ORDERED: diphenhydrAMINE 50 MG/ML VIAL IVP PRN (13:45)
[2020-05-13 14:45] VITALS: BP 120/78
[2020-05-13] MEDS ORDERED: MULTIVIT INFUSN,ADULT 4,VIT K 10 ML, THIAMINE INJ 100 MG, FOLIC ACID INJ 1 MG in IV NOR... IV SCH (15:00)
[2020-05-13] MEDS: ENOXAPARIN 40 MG/0.4 ML SYRINGE. SQ SCH (15:01)
[2020-05-13] MEDS: MULTIVIT INFUSN,ADULT 4,VIT K 10 ML, THIAMINE INJ 100 MG, FOLIC ACID INJ 1 MG in IV NOR... IV SCH (15:02)
--- NOTE | 2020-05-13 17:01 | PDOC1 ---
History & Psych Evaluation Date of Service: DOS: DATE: 05/13/20 TIME: 16:48 Identification: Identification He is a 44-year-old gentleman who lives with his brother, unmarried have no children Chief Complaint: Chief Complaint Polysubstance use disorder, depression, anxiety History of Present Illness: HPI: He is a 44-year-old gentleman with previous history of polysubstance use disorder including methamphetamine and THC, alcohol use disorder, depression and anxiety admitted with suicidal ideation and alcohol intoxication. Additionally, he incidentally found to have UTI. Upon interview he appears cooperative but guarded and limited eye contact. Stating, he has been drinking 1 L of vodka every day for years. In addition to that he also takes methamphetamine and THC. States, he has a lot of stressors going on in his life. Major distress is lack of work living with his brother. States, he was planning to jump off the bridge and standing over the area when he was found by police. He has history of being it to [facility]. Endorsing depression which is rated as 04/1010 is worse. Depression is characterized as hopelessness, no way out, helplessness, insomnia, sleep and appetite changes, and recurrent suicidal ideation. Anxiety is reportedly high which corresponds to depression. With depression and anxiety get worse. He denies auditory or visual hallucinations. Denies previous history of suicidal attempt. Denies previous history of psychiatric hospital admission. Past Psychiatric History: Past psychiatric history of polysubstance use disorder, depression and anxiety. Denies previous history of psychiatric hospital admission. He has been into [facility] system however he did not follow through. He denies previous history of suicidal attempt. However he endorses previous history of recurrent suicidal ideation. Past Medical History: Please see medical chart for details Family History: Denies family history of psychiatric illness or suicide. Social History: Social History: Born and raised in [place], he lives with his brother. 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 He does not feel safe for being with brother. History of methamphetamine and THC abuse as mentioned above. Current Medications: Current Medications Current Medications Medications (Trade) Dose Ordered Sig/Negin Start Time Stop Time Status Last Admin Dose Admin Ceftriaxone Sodium (Rocephin) 1 gm Q24H 05/13/20 06:00 05/13/20 05:38 1 GM Clonidine HCl (Catapres) 0.1 mg PRN Q1HR PRN 8/3/20 13:45 Diphenhydramine HCl (Benadryl) 25 mg PRN Q15MIN PRN 05/13/20 13:45 Enoxaparin Sodium (Lovenox 40mg Syringe) 40 mg Q24H 05/13/20 14:00 05/13/20 15:01 40 MG Folic Acid (Folic Acid) 1 mg DAILY 05/18/20 09:00 Haloperidol Lactate (Haldol Inj) 5 mg PRN Q4HRS PRN 05/13/20 13:45 Ketorolac Tromethamine (Toradol 15mg Vial) 15 mg 1X ONCE 05/12/20 03:00 05/12/20 03:01 DC 05/12/20 02:45 15 MG Lactobacillus Rhamnosus (Culturelle) 1 cap BID 05/13/20 21:00 Lorazepam (Ativan Inj) 4 mg PRN Q15MIN PRN 05/13/20 13:45 UNV Lorazepam (Ativan) 8 mg PRN Q1HR PRN 05/13/20 13:45 Magnesium Sulfate 50 ml @ 25 mls/hr 1X ONCE 05/12/20 03:00 05/12/20 04:59 DC 05/12/20 03:07 25 MLS/HR Multivitamins 10 ml/Thiamine HCl 100 mg/Folic Acid 1 mg/Sodium Chloride 1,011.2 ml @ 100 mls/ hr Q24H 05/13/20 15:00 05/18/20 01:07 UNV Ondansetron HCl (Zofran) 4 mg PRN Q6HRS PRN 05/13/20 05:45 Potassium Chloride (Klor-Con) 20 meq DAILYWBKFT 05/14/20 08:00 Thiamine Mononitrate (Vitamin B-1) 100 mg DAILY 05/18/20 09:00 Tramadol HCl (Ultram) 50 mg PRN Q6HRS PRN 05/12/20 05:00 05/12/20 04:59 50 MG Allergies: Allergies: Coded Allergies: cyclobenzaprine HCl (Verified Allergy, Intermediate, rash, 03/12/15) Mental Status Examination: Mental Status Examination gentleman appears his stated age, fairly groomed fairly nourished Cooperative somewhat guarded Alert and oriented Avoiding eye contact Thought processes linear and goal-directed Denies auditory or visual hallucinations. Denies suicidal or homicidal thoughts. No abnormal perceptions noted. Mood is depressed Affect is dysthymic Insight is fair Judgment is fair Impulse control is fair Attention span and concentration fair. Recent and remote memory intact ROS: 14 point review of system is otherwise negative except for stated in H&P. Physical Exam: Refer to Physician's note. CABIN CREW: No focal deficit MSK: No EPS, TDK, or abnormal involuntary movements Vitals: Vitals Vital Signs Date Time Temp Pulse Resp B/P (MAP) Pulse Ox O2 Delivery O2 Flow Rate FiO2 05/13/20 14:45 98.2 74 19 120/78 (92) 97 Room Air 98.2 Labs: Labs Laboratory Tests Test 05/12/20 01:55 05/12/20 02:00 Urine Collection Type Unknown Urine Color Nathalie Urine Clarity Cloudy Urine pH 6.5 (<5.0-8.0) Urine Specific [place] 1.025 (1.000-1.030) Urine Protein 100 mg/dL (NEG-TRACE) Urine Glucose (UA) Negative mg/dL (NEG) Urine Ketones (Stick) Trace mg/dL (NEG) Urine Blood Negative (NEG) Urine Nitrite Positive (NEG) Urine Bilirubin Small (NEG) Urine Urobilinogen Dipstick 1.0 mg/dL (0.2 mg/dL) Urine Leukocyte Esterase Moderate (NEG) Urine RBC 0 /HPF (0-2) Urine WBC 11-20 /HPF (0-4) Urine Squamous Epithelial Cells Occ /LPF Urine Amorphous Sediment Present /HPF Urine Bacteria Many /HPF (0-FEW) Urine Mucus Marked /LPF Urine Opiates Screen Neg (NEG) Urine Methadone Screen Neg (NEG) Urine Barbiturates Neg (NEG) Urine Phencyclidine Screen Neg (NEG) Urine Amphetamine/Methamphetamine Pos (NEG) Urine Benzodiazepines Screen Neg (NEG) Urine Cocaine Screen Neg (NEG) Urine Cannabinoids Screen Pos (NEG) Urine Ethyl Alcohol Pos (NEG) White Blood Count 5.3 x10^3/uL (4.0-11.0) Red Blood Count 5.13 x10^6/uL (4.30-5.70) Hemoglobin 16.1 g/dL (13.0-17.5) Hematocrit 46.0 % (39.0-53.0) Mean Corpuscular Volume 90 fL (79-100) Mean Corpuscular Hemoglobin 31 pg (25-35) Mean Corpuscular Hemoglobin Concent 35 g/dL (31-37) Red Cell Distribution Width 16.4 % (11.5-14.5) Platelet Count 216 x10^3/uL (140-400) Neutrophils (%) (Auto) 42 % (31-73) Lymphocytes (%) (Auto) 49 % (24-48) Monocytes (%) (Auto) 8 % (0-9) Eosinophils (%) (Auto) 1 % (0-3) Basophils (%) (Auto) 1 % (0-3) Neutrophils # (Auto) 2.2 x10^3/uL (1.8-7.7) Lymphocytes # (Auto) 2.6 x10^3/uL (1.0-4.8) Monocytes # (Auto) 0.4 x10^3/uL (0.0-1.1) Eosinophils # (Auto) 0.0 x10^3/uL (0.0-0.7) Basophils # (Auto) 0.1 x10^3/uL (0.0-0.2) Prothrombin Time 12.9 SEC (11.7-14.0) Prothromb Time International Ratio 1.0 (0.8-1.1) Activated Partial Thromboplast Time 29 SEC (24-38) Sodium Level 143 mmol/L (136-145) Potassium Level 3.1 mmol/L (3.5-5.1) Chloride Level 102 mmol/L (98-107) Carbon Dioxide Level 28 mmol/L (21-32) Anion Gap 13 (6-14) Blood Urea Nitrogen 11 mg/dL (8-26) Creatinine 0.8 mg/dL (0.7-1.3) Estimated GFR (Cockcroft-Gault) 106.0 BUN/Creatinine Ratio 14 (6-20) Glucose Level 162 mg/dL (70-99) Calcium Level 9.5 mg/dL (8.5-10.1) Magnesium Level 1.4 mg/dL (1.8-2.4) Total Bilirubin 0.7 mg/dL (0.2-1.0) Aspartate Amino Transf (AST/SGOT) 50 U/L (15-37) Alanine Aminotransferase (ALT/SGPT) 45 U/L (16-63) Alkaline Phosphatase 77 U/L (46-116) Total Protein 7.7 g/dL (6.4-8.2) Albumin 4.2 g/dL (3.4-5.0) Albumin/Globulin Ratio 1.2 (1.0-1.7) Salicylates Level < 2.8 mg/dL (2.8-20.0) Salicylate Last Dose Date Unk Salicylate Last Dose Time Unk Acetaminophen Level < 2 mcg/ml (10-30) Acetaminophen Last Dose Date Unk Acetaminophen Last Dose Time Unk Ethyl Alcohol Level 380 mg/dL (0-10) Diagnosis: Diagnosis: #1 major depressive disorder, recurrent, moderate to severe without psychotic features 2. Generalized anxiety disorder. 3. Methamphetamine use disorder, recurrent, severe 4. THC use disorder, recurrent, severe 5. Alcohol use disorder, recurrent, severe Assessment: He is a young gentleman with history of depression anxiety and polysubstance use struggling with major depressive episode in context of major depressive disorder. However his depression is perpetuated by his consistent substance use including heavy alcohol abuse, methamphetamine and THC. For the stability of mental health, I strongly recommended substance rehab, motivational interviewing, and contingency plans. Additionally, recommending to start Celexa and Seroquel for mood stability and depression. He is in agreement with plan for Plan: Continue hospitalization for crisis management and further treatment. Continue Celexa and Seroquel as is. Risk, benefits, alternatives of the treatment are discussed. He is in agreement with plan and voiced understanding. Adverse drug reactions of the medications prescribed were also discussed. Psychoeducation provided. Supportive psychotherapy provided. Insight oriented psychotherapy provided. MARIJA MURCIA MD May 13, 2020 17:01
[2020-05-13 19:00] VITALS: BP 143/87
[2020-05-13] MEDS: LACTOBACILLUS RHAMNOSUS GG 1 CAPSULE. PO SCH (21:00)
[2020-05-13] MEDS: ONDANSETRON PF 4 MG/2 ML VIAL. IVP PRN (21:18)
[2020-05-13 23:00] VITALS: BP 139/92
[2020-05-14] MEDS: traMADol 50 MG TABLET PO PRN (02:33)
[2020-05-14 02:59] VITALS: BP 138/93
[2020-05-14 05:20] LABS: BASO % 1 % (0-3); EOS # 0.1 x10^3/uL (0.0-0.7); EOS % 2 % (0-3); HEMATOCRIT 41.5 % (39.0-53.0); HEMOGLOBIN 14.5 g/dL (13.0-17.5); LYMPH # 1.8 x10^3/uL (1.0-4.8); LYMPH % 51 % (24-48); MEAN CORPUSCULAR HEMOGLOBIN 32 pg (25-35); MEAN CORPUSCULAR HGB CONC 35 g/dL (31-37); MEAN CORPUSCULAR VOLUME 91 fL (79-100); MONO # 0.3 x10^3/uL (0.0-1.1); MONO % 10 % (0-9); NEUT # 1.2 x10^3/uL (1.8-7.7); NEUT % 36 % (31-73); PLATELET COUNT 150 x10^3/uL (140-400); RED BLOOD COUNT 4.58 x10^6/uL (4.30-5.70); RED CELL DISTRIBUTION WIDTH 15.1 % (11.5-14.5); WHITE BLOOD COUNT 3.4 x10^3/uL (4.0-11.0)
[2020-05-14 05:39] LABS: CALCIUM 7.5 mg/dL (8.5-10.1); CREATININE 0.6 mg/dL (0.7-1.3); GFR 147.8; POTASSIUM 3.1 mmol/L (3.5-5.1)
--- NOTE | 2020-05-14 05:55 | NUR ---
Asked patient to replace his tele monitor multiple times since approx. 0100. Patient declines to replace each request. Will pass along to day RN.
[2020-05-14] MEDS: cefTRIAXone IV Push 1 GM VIAL. IVP SCH (06:37)
--- NOTE | 2020-05-14 06:47 | EKG ---
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
[2020-05-14 07:00] VITALS: BP 118/80
[2020-05-14] MEDS ORDERED: POTASSIUM CHLORIDE 20 MEQ TABLET.ER. PO SCH (08:00)
[2020-05-14] MEDS: LACTOBACILLUS RHAMNOSUS GG 1 CAPSULE. PO SCH ×2 (09:45→21:57)
--- NOTE | 2020-05-14 10:33 | NUR ---
SW following. Discussed with RN, pt more alert today, mildly withdrawing, pt still on 1:1. PAT to reassess when pt is done withdrawing. SW will continue to follow.
[2020-05-14 11:00] VITALS: BP 134/80
--- NOTE | 2020-05-14 11:40 | PDOC ---
PROGRESS NOTES Date of Service: DATE: 05/14/20 TIME: 11:40 History of Present Illness History of Present Illness ASSESSMENT AND PLAN: Suicidal ideation and polysubstance abuse. severe alcohol abuse admitted. consult psychiatric assessment team. consult DR FRANCE have an incidental finding of urinary tract infection with moderate leukocyte esterase and white cells in his urine. IV antibiotics. Trend labs, home meds, DVT prophylaxis. Full code. 1:1 observation .Continue hospitalization for crisis management and further treatment. Continue Celexa and Seroquel // PLACEMENT PENDING 28 MIN pt exam, chart review > 50% of time spent with exam,, chart review, pt care coordination Vitals Vitals Vital Signs Date Time Temp Pulse Resp B/P (MAP) Pulse Ox O2 Delivery O2 Flow Rate FiO2 05/14/20 11:00 98.1 62 18 134/80 (98) 96 Room Air 98.1 Physical Exam Physical Exam withdrawn General: Alert, Oriented X3, Cooperative, No acute distress Heart: Regular rate, Normal S1, Normal S2 Lungs: Clear Abdomen: Normal bowel sounds, Soft, No tenderness Extremities: No clubbing, No cyanosis, No edema Skin: No significant lesion Labs LABS Laboratory Tests Test 05/14/20 03:40 White Blood Count 3.4 x10^3/uL (4.0-11.0) Red Blood Count 4.58 x10^6/uL (4.30-5.70) Hemoglobin 14.5 g/dL (13.0-17.5) Hematocrit 41.5 % (39.0-53.0) Mean Corpuscular Volume 91 fL (79-100) Mean Corpuscular Hemoglobin 32 pg (25-35) Mean Corpuscular Hemoglobin Concent 35 g/dL (31-37) Red Cell Distribution Width 15.1 % (11.5-14.5) Platelet Count 150 x10^3/uL (140-400) Neutrophils (%) (Auto) 36 % (31-73) Lymphocytes (%) (Auto) 51 % (24-48) Monocytes (%) (Auto) 10 % (0-9) Eosinophils (%) (Auto) 2 % (0-3) Basophils (%) (Auto) 1 % (0-3) Neutrophils # (Auto) 1.2 x10^3/uL (1.8-7.7) Lymphocytes # (Auto) 1.8 x10^3/uL (1.0-4.8) Monocytes # (Auto) 0.3 x10^3/uL (0.0-1.1) Eosinophils # (Auto) 0.1 x10^3/uL (0.0-0.7) Basophils # (Auto) 0.0 x10^3/uL (0.0-0.2) Sodium Level 138 mmol/L (136-145) Potassium Level 3.1 mmol/L (3.5-5.1) Chloride Level 101 mmol/L (98-107) Carbon Dioxide Level 29 mmol/L (21-32) Anion Gap 8 (6-14) Blood Urea Nitrogen 7 mg/dL (8-26) Creatinine 0.6 mg/dL (0.7-1.3) Estimated GFR (Cockcroft-Gault) 147.8 Glucose Level 116 mg/dL (70-99) Calcium Level 7.5 mg/dL (8.5-10.1) Assessment and Plan Assessmemt and Plan Problems Medical Problems: (1) At risk for seizures Status: Acute (2) Hypokalemia Status: Acute (3) Hypomagnesemia Status: Acute Comment Review of Relevant I have reviewed the following items casi (where applicable) has been applied. Labs Laboratory Tests Test 05/14/20 03:40 White Blood Count 3.4 x10^3/uL (4.0-11.0) Red Blood Count 4.58 x10^6/uL (4.30-5.70) Hemoglobin 14.5 g/dL (13.0-17.5) Hematocrit 41.5 % (39.0-53.0) Mean Corpuscular Volume 91 fL (79-100) Mean Corpuscular Hemoglobin 32 pg (25-35) Mean Corpuscular Hemoglobin Concent 35 g/dL (31-37) Red Cell Distribution Width 15.1 % (11.5-14.5) Platelet Count 150 x10^3/uL (140-400) Neutrophils (%) (Auto) 36 % (31-73) Lymphocytes (%) (Auto) 51 % (24-48) Monocytes (%) (Auto) 10 % (0-9) Eosinophils (%) (Auto) 2 % (0-3) Basophils (%) (Auto) 1 % (0-3) Neutrophils # (Auto) 1.2 x10^3/uL (1.8-7.7) Lymphocytes # (Auto) 1.8 x10^3/uL (1.0-4.8) Monocytes # (Auto) 0.3 x10^3/uL (0.0-1.1) Eosinophils # (Auto) 0.1 x10^3/uL (0.0-0.7) Basophils # (Auto) 0.0 x10^3/uL (0.0-0.2) Sodium Level 138 mmol/L (136-145) Potassium Level 3.1 mmol/L (3.5-5.1) Chloride Level 101 mmol/L (98-107) Carbon Dioxide Level 29 mmol/L (21-32) Anion Gap 8 (6-14) Blood Urea Nitrogen 7 mg/dL (8-26) Creatinine 0.6 mg/dL (0.7-1.3) Estimated GFR (Cockcroft-Gault) 147.8 Glucose Level 116 mg/dL (70-99) Calcium Level 7.5 mg/dL (8.5-10.1) Laboratory Tests Test 05/14/20 03:40 White Blood Count 3.4 x10^3/uL (4.0-11.0) Red Blood Count 4.58 x10^6/uL (4.30-5.70) Hemoglobin 14.5 g/dL (13.0-17.5) Hematocrit 41.5 % (39.0-53.0) Mean Corpuscular Volume 91 fL (79-100) Mean Corpuscular Hemoglobin 32 pg (25-35) Mean Corpuscular Hemoglobin Concent 35 g/dL (31-37) Red Cell Distribution Width 15.1 % (11.5-14.5) Platelet Count 150 x10^3/uL (140-400) Neutrophils (%) (Auto) 36 % (31-73) Lymphocytes (%) (Auto) 51 % (24-48) Monocytes (%) (Auto) 10 % (0-9) Eosinophils (%) (Auto) 2 % (0-3) Basophils (%) (Auto) 1 % (0-3) Neutrophils # (Auto) 1.2 x10^3/uL (1.8-7.7) Lymphocytes # (Auto) 1.8 x10^3/uL (1.0-4.8) Monocytes # (Auto) 0.3 x10^3/uL (0.0-1.1) Eosinophils # (Auto) 0.1 x10^3/uL (0.0-0.7) Basophils # (Auto) 0.0 x10^3/uL (0.0-0.2) Sodium Level 138 mmol/L (136-145) Potassium Level 3.1 mmol/L (3.5-5.1) Chloride Level 101 mmol/L (98-107) Carbon Dioxide Level 29 mmol/L (21-32) Anion Gap 8 (6-14) Blood Urea Nitrogen 7 mg/dL (8-26) Creatinine 0.6 mg/dL (0.7-1.3) Estimated GFR (Cockcroft-Gault) 147.8 Glucose Level 116 mg/dL (70-99) Calcium Level 7.5 mg/dL (8.5-10.1) Microbiology 05/12/20 Urine Culture - Final, Complete Medications Current Medications Multivitamins 10 ml/Thiamine HCl 100 mg/Folic Acid 1 mg/Sodium Chloride 1,011.2 ml @ 1,000.088 mls/hr 1X ONCE IV Last administered on 05/12/20at 02:05; Start 05/12/20 at 02:30; Stop 05/12/20 at 03:30; Status DC Ondansetron HCl (Zofran) 4 mg PRN Q8HRS PRN IV NAUSEA/VOMITING 1ST CHOICE Last administered on 05/12/20at 21:02; Start 05/12/20 at 02:15; Stop 05/13/20 at 02:14; Status DC Lorazepam (Ativan Inj) 1 mg PRN Q1HR PRN IV For CIWA 8-14 Last administered on 05/12/20at 04:59; Start 05/12/20 at 02:15; Stop 05/13/20 at 13:56; Status DC Lorazepam (Ativan Inj) 2 mg PRN Q1HR PRN IV For CIWA 15 or greater Last administered on 05/13/20at 11:06; Start 05/12/20 at 02:15; Stop 05/13/20 at 13:57; Status DC Ketorolac Tromethamine (Toradol 15mg Vial) 15 mg 1X ONCE IVP Last administered on 05/12/20at 02:45; Start 05/12/20 at 03:00; Stop 05/12/20 at 03:01; Status DC Potassium Chloride (Klor-Con) 40 meq 1X ONCE PO Last administered on 05/12/20at 02:45; Start 05/12/20 at 03:00; Stop 05/12/20 at 03:01; Status DC Ceftriaxone Sodium (Rocephin) 1 gm 1X ONCE IVP Last administered on 05/12/20at 03:08; Start 05/12/20 at 03:00; Stop 05/12/20 at 03:01; Status DC Magnesium Sulfate 50 ml @ 25 mls/hr 1X ONCE IV Last administered on 05/12/20at 03:07; Start 05/12/20 at 03:00; Stop 05/12/20 at 04:59; Status DC Tramadol HCl (Ultram) 50 mg PRN Q6HRS PRN PO MODERATE PAIN 4-6 Last administered on 05/14/20at 02:33; Start 05/12/20 at 05:00 Multivitamins 10 ml/Thiamine HCl 100 mg/Folic Acid 1 mg/Sodium Chloride 1,011.2 ml @ 1,000.088 mls/hr 1X ONCE IV Last administered on 05/12/20at 10:28; Start 05/12/20 at 11:00; Stop 05/12/20 at 12:00; Status DC Ceftriaxone Sodium (Rocephin) 1 gm Q24H IVP ; Start 05/13/20 at 09:00; Status Cancel Thiamine Mononitrate (Vitamin B-1) 100 mg DAILY PO Last administered on 05/13/20at 11:05; Start 05/13/20 at 09:00; Stop 05/13/20 at 13:44; Status DC Ceftriaxone Sodium (Rocephin) 1 gm Q24H IVP Last administered on 05/14/20at 06:37; Start 05/13/20 at 06:00 Ondansetron HCl (Zofran) 4 mg PRN Q6HRS PRN IVP NAUSEA/VOMITING 1ST CHOICE Last administered on 05/13/20at 21:18; Start 05/13/20 at 05:45 Lactobacillus Rhamnosus (Culturelle) 1 cap BID PO Last administered on 05/14/20at 09:45; Start 05/13/20 at 21:00 Multivitamins 10 ml/Thiamine HCl 100 mg/Folic Acid 1 mg/Sodium Chloride 1,011.2 ml @ 100 mls/ hr Q24H IV Last administered on 05/13/20at 15:02; Start 05/13/20 at 15:00; Stop 05/18/20 at 01:07 Folic Acid (Folic Acid) 1 mg DAILY PO ; Start 05/18/20 at 09:00 Lorazepam (Ativan) 4 mg PRN Q1HR PRN PO For CIWA 8-14 Last administered on 05/13/20at 23:24; Start 05/13/20 at 13:45 Lorazepam (Ativan) 8 mg PRN Q1HR PRN PO For CIWA 15 or greater; Start 05/13/20 at 13:45 Lorazepam (Ativan Inj) 2 mg PRN Q1HR PRN IV For CIWA 8-14 Last administered on 05/14/20at 01:13; Start 05/13/20 at 13:45 Lorazepam (Ativan Inj) 4 mg PRN Q1HR PRN IV For CIWA 15 or greater; Start 05/13/20 at 13:45 Haloperidol Lactate (Haldol Inj) 5 mg PRN Q4HRS PRN IVP Hallucinatns,Confusn,Delirium; Start 05/13/20 at 13:45 Diphenhydramine HCl (Benadryl) 25 mg PRN Q15MIN PRN IVP EPS symptoms 2'Haldol admin; Start 05/13/20 at 13:45 Clonidine HCl (Catapres) 0.1 mg PRN Q1HR PRN PO SBP > 180 or DBP > 100, MRX3; Start 05/13/20 at 13:45 Lorazepam (Ativan Inj) 2 mg PRN Q15MIN PRN IV SEE COMMENTS; Start 05/13/20 at 13:45; Status UNV Lorazepam (Ativan Inj) 4 mg PRN Q15MIN PRN IV SEE COMMENTS; Start 05/13/20 at 13:45; Status UNV Potassium Chloride (Klor-Con) 40 meq 1X ONCE PO Last administered on 05/13/20at 15:01; Start 05/13/20 at 13:45; Stop 05/13/20 at 13:49; Status DC Potassium Chloride (Klor-Con) 20 meq DAILYWBKFT PO Last administered on 05/14/20at 09:45; Start 05/14/20 at 08:00; Stop 05/14/20 at 11:33; Status DC Enoxaparin Sodium (Lovenox 40mg Syringe) 40 mg Q24H SQ Last administered on 05/13/20at 15:01; Start 05/13/20 at 14:00 Thiamine Mononitrate (Vitamin B-1) 100 mg DAILY PO ; Start 05/18/20 at 09:00 Multivitamins 10 ml/Thiamine HCl 100 mg/Folic Acid 1 mg/Sodium Chloride 1,011.2 ml @ 100 mls/ hr Q24H IV ; Start 05/13/20 at 15:00; Stop 05/18/20 at 01:07; Status UNV Potassium Chloride (Klor-Con) 40 meq 1X ONCE PO ; Start 05/14/20 at 12:00; Stop 05/14/20 at 12:01 Potassium Chloride (Klor-Con) 40 meq DAILYWBKFT PO ; Start 05/15/20 at 08:00 Active Scripts Active Bactrim Ds Tablet (Sulfamethoxazole/Trimethoprim) 1 Each Tablet 1 Tab PO BID 10 Days Pantoprazole Sodium (Pantoprazole Sodium) 40 Mg Tablet.dr 40 Mg PO DAILYAC 30 Days Mag-Al Plus Xs Suspension (Mag Hydrox/Al Hydrox/Simeth) 30 Ml Oral.susp 30 Ml PO PRN DAILY PRN 30 Days Catapres (Clonidine Hcl) 0.1 Mg Tablet 0.1 Mg PO PRN Q6HRS PRN 14 Days Up to TID for alcohol withdrawal symptoms for 2 weeks Lidocaine PATCH (Lidocaine) 1 Each Adh..patch 1 Patch TD DAILY Mag-Oxide (Magnesium Oxide) 400 Mg Tablet 400 Mg PO DAILY Thera-M Tablet (Multivits,Ca,Minerals/Iron/Fa) 1 Each Tablet 1 Tab PO DAILY 30 Days Vitamin B-1 (Thiamine Mononitrate) 100 Mg Tablet 100 Mg PO DAILY 30 Days Folic Acid 1 Mg Tablet 1 Mg PO DAILY 30 Days [Pantoprazole] 40 MG Tablet.dr 40 Mg PO DAILYAC 30 Days Reported Melatonin 3 Mg Tablet 1 Tab PO QHS Celexa (Citalopram Hydrobromide) 20 Mg Tablet 1 Tab PO DAILY Seroquel (Quetiapine Fumarate) 100 Mg Tablet 1 Tab PO QHS Vitals/I & O Vital Sign - Last 24 Hours 05/13/20 05/13/20 05/13/20 05/13/20 14:45 19:00 19:30 23:00 Temp 98.2 97.7 97.5 98.2 97.7 97.5 Pulse 74 66 83 Resp 19 20 20 B/P (MAP) 120/78 (92) 143/87 (105) 139/92 (108) Pulse Ox 97 97 96 O2 Delivery Room Air Room Air Room Air Room Air 05/14/20 05/14/20 05/14/20 05/14/20 02:33 02:59 03:45 07:00 Temp 98.1 98.1 Pulse 63 63 Resp 20 18 B/P (MAP) 138/93 (108) 118/80 (93) Pulse Ox 96 98 98 95 O2 Delivery Room Air Room Air Room Air Room Air 05/14/20 05/14/20 08:00 11:00 Temp 98.1 98.1 Pulse 62 Resp 18 B/P (MAP) 134/80 (98) Pulse Ox 96 O2 Delivery Room Air Room Air Intake and Output 05/13/20 05/13/20 05/14/20 15:00 23:00 07:00 Intake Total 600 ml 420 ml 480 ml Output Total 800 ml 1500 ml 725 ml Balance -200 ml -1080 ml -245 ml Justicifation of Admission Dx: Justifications for Admission: Justification of Admission Dx: Yes KAY GUAJARDO MD May 14, 2020 11:40
[2020-05-14] MEDS ORDERED: POTASSIUM CHLORIDE 20 MEQ TABLET.ER. PO ONE (12:00)
[2020-05-14] MEDS: ENOXAPARIN 40 MG/0.4 ML SYRINGE. SQ SCH (12:30)
[2020-05-14 15:02] VITALS: BP 139/83
[2020-05-14] MEDS: MULTIVIT INFUSN,ADULT 4,VIT K 10 ML, THIAMINE INJ 100 MG, FOLIC ACID INJ 1 MG in IV NOR... IV SCH (16:46)
[2020-05-14] MEDS: ONDANSETRON PF 4 MG/2 ML VIAL. IVP PRN (16:50)
[2020-05-14 19:00] VITALS: BP 127/85
[2020-05-14] MEDS ORDERED: MAG HYDROX/ALUMINUM HYD/SIMETH 30 ML ORAL.SUSP PO PRN (20:45)
[2020-05-14] MEDS ORDERED: cloNIDine HCL 0.1 MG TABLET PO PRN (20:45)
[2020-05-14] MEDS ORDERED: NON FORMULARY ITEM (Melatonin 1 TAB) PO SCH (21:00)
[2020-05-14] MEDS: QUEtiapine 100 MG TABLET. PO SCH (21:57)
[2020-05-14 23:00] VITALS: BP 130/83
[2020-05-15 03:00] VITALS: BP 127/83
[2020-05-15 07:00] VITALS: BP 94/52
[2020-05-15] MEDS: cefTRIAXone IV Push 1 GM VIAL. IVP SCH (07:24)
--- NOTE | 2020-05-15 09:31 | PDOC ---
PROGRESS NOTES Date of Service: DATE: 05/15/20 TIME: 09:31 Continue hospitalization for crisis management and further treatment. Continue Celexa and Seroquel d/c to [facility], [facility] 05/14 History of Present Illness History of Present Illness DISCHARGE DX Suicidal ideation and polysubstance abuse. severe alcohol abuse admitted. consult psychiatric assessment team. consult DR FRANCE have an incidental finding of urinary tract infection with moderate leukocyte esterase and white cells in his urine. IV antibiotics. Trend labs, home meds, DVT prophylaxis. Full code. 1:1 observation Continue hospitalization for crisis management and further treatment. Continue Celexa and Seroquel // PLACEMENT RINCON 28 MIN pt exam, chart review D/C PLANNING > 50% of time spent with exam,, chart review, pt care coordination Vitals Vitals Vital Signs Date Time Temp Pulse Resp B/P (MAP) Pulse Ox O2 Delivery O2 Flow Rate FiO2 05/15/20 07:00 98.1 51 18 94/52 (66) 97 Room Air 98.1 Physical Exam Physical Exam withdrawn General: Alert, Oriented X3, Cooperative, No acute distress Heart: Regular rate, Normal S1, Normal S2 Lungs: Clear Abdomen: Normal bowel sounds, Soft, No tenderness Extremities: No clubbing, No cyanosis, No edema Skin: No rashes, No significant lesion Assessment and Plan Assessmemt and Plan Problems Medical Problems: (1) At risk for seizures Status: Acute (2) Hypokalemia Status: Acute (3) Hypomagnesemia Status: Acute Comment Review of Relevant I have reviewed the following items casi (where applicable) has been applied. Labs Laboratory Tests Test 05/14/20 03:40 White Blood Count 3.4 x10^3/uL (4.0-11.0) Red Blood Count 4.58 x10^6/uL (4.30-5.70) Hemoglobin 14.5 g/dL (13.0-17.5) Hematocrit 41.5 % (39.0-53.0) Mean Corpuscular Volume 91 fL (79-100) Mean Corpuscular Hemoglobin 32 pg (25-35) Mean Corpuscular Hemoglobin Concent 35 g/dL (31-37) Red Cell Distribution Width 15.1 % (11.5-14.5) Platelet Count 150 x10^3/uL (140-400) Neutrophils (%) (Auto) 36 % (31-73) Lymphocytes (%) (Auto) 51 % (24-48) Monocytes (%) (Auto) 10 % (0-9) Eosinophils (%) (Auto) 2 % (0-3) Basophils (%) (Auto) 1 % (0-3) Neutrophils # (Auto) 1.2 x10^3/uL (1.8-7.7) Lymphocytes # (Auto) 1.8 x10^3/uL (1.0-4.8) Monocytes # (Auto) 0.3 x10^3/uL (0.0-1.1) Eosinophils # (Auto) 0.1 x10^3/uL (0.0-0.7) Basophils # (Auto) 0.0 x10^3/uL (0.0-0.2) Sodium Level 138 mmol/L (136-145) Potassium Level 3.1 mmol/L (3.5-5.1) Chloride Level 101 mmol/L (98-107) Carbon Dioxide Level 29 mmol/L (21-32) Anion Gap 8 (6-14) Blood Urea Nitrogen 7 mg/dL (8-26) Creatinine 0.6 mg/dL (0.7-1.3) Estimated GFR (Cockcroft-Gault) 147.8 Glucose Level 116 mg/dL (70-99) Calcium Level 7.5 mg/dL (8.5-10.1) Microbiology 05/12/20 Urine Culture - Final, Complete Medications Current Medications Multivitamins 10 ml/Thiamine HCl 100 mg/Folic Acid 1 mg/Sodium Chloride 1,011.2 ml @ 1,000.088 mls/hr 1X ONCE IV Last administered on 05/12/20at 02:05; Start 05/12/20 at 02:30; Stop 05/12/20 at 03:30; Status DC Ondansetron HCl (Zofran) 4 mg PRN Q8HRS PRN IV NAUSEA/VOMITING 1ST CHOICE Last administered on 05/12/20at 21:02; Start 05/12/20 at 02:15; Stop 05/13/20 at 02:14; Status DC Lorazepam (Ativan Inj) 1 mg PRN Q1HR PRN IV For CIWA 8-14 Last administered on 05/12/20at 04:59; Start 05/12/20 at 02:15; Stop 05/13/20 at 13:56; Status DC Lorazepam (Ativan Inj) 2 mg PRN Q1HR PRN IV For CIWA 15 or greater Last administered on 05/13/20at 11:06; Start 05/12/20 at 02:15; Stop 05/13/20 at 13:57; Status DC Ketorolac Tromethamine (Toradol 15mg Vial) 15 mg 1X ONCE IVP Last administered on 05/12/20at 02:45; Start 05/12/20 at 03:00; Stop 05/12/20 at 03:01; Status DC Potassium Chloride (Klor-Con) 40 meq 1X ONCE PO Last administered on 05/12/20at 02:45; Start 05/12/20 at 03:00; Stop 05/12/20 at 03:01; Status DC Ceftriaxone Sodium (Rocephin) 1 gm 1X ONCE IVP Last administered on 05/12/20at 03:08; Start 05/12/20 at 03:00; Stop 05/12/20 at 03:01; Status DC Magnesium Sulfate 50 ml @ 25 mls/hr 1X ONCE IV Last administered on 05/12/20at 03:07; Start 05/12/20 at 03:00; Stop 05/12/20 at 04:59; Status DC Tramadol HCl (Ultram) 50 mg PRN Q6HRS PRN PO MODERATE PAIN 4-6 Last administered on 05/14/20at 02:33; Start 05/12/20 at 05:00 Multivitamins 10 ml/Thiamine HCl 100 mg/Folic Acid 1 mg/Sodium Chloride 1,011.2 ml @ 1,000.088 mls/hr 1X ONCE IV Last administered on 05/12/20at 10:28; Start 05/12/20 at 11:00; Stop 05/12/20 at 12:00; Status DC Ceftriaxone Sodium (Rocephin) 1 gm Q24H IVP ; Start 05/13/20 at 09:00; Status Cancel Thiamine Mononitrate (Vitamin B-1) 100 mg DAILY PO Last administered on 05/13/20at 11:05; Start 05/13/20 at 09:00; Stop 05/13/20 at 13:44; Status DC Ceftriaxone Sodium (Rocephin) 1 gm Q24H IVP Last administered on 05/15/20at 07:24; Start 05/13/20 at 06:00 Ondansetron HCl (Zofran) 4 mg PRN Q6HRS PRN IVP NAUSEA/VOMITING 1ST CHOICE Last administered on 05/14/20at 16:50; Start 05/13/20 at 05:45 Lactobacillus Rhamnosus (Culturelle) 1 cap BID PO Last administered on 05/14/20at 21:57; Start 05/13/20 at 21:00 Multivitamins 10 ml/Thiamine HCl 100 mg/Folic Acid 1 mg/Sodium Chloride 1,011.2 ml @ 100 mls/ hr Q24H IV Last administered on 05/14/20at 16:46; Start 05/13/20 at 15:00; Stop 05/14/20 at 20:44; Status DC Folic Acid (Folic Acid) 1 mg DAILY PO ; Start 05/18/20 at 09:00; Status Cancel Lorazepam (Ativan) 4 mg PRN Q1HR PRN PO For CIWA 8-14 Last administered on 05/13/20at 23:24; Start 05/13/20 at 13:45 Lorazepam (Ativan) 8 mg PRN Q1HR PRN PO For CIWA 15 or greater; Start 05/13/20 at 13:45 Lorazepam (Ativan Inj) 2 mg PRN Q1HR PRN IV For CIWA 8-14 Last administered on 05/14/20at 01:13; Start 05/13/20 at 13:45 Lorazepam (Ativan Inj) 4 mg PRN Q1HR PRN IV For CIWA 15 or greater; Start 05/13/20 at 13:45 Haloperidol Lactate (Haldol Inj) 5 mg PRN Q4HRS PRN IVP Hallucinatns,Confusn,Delirium; Start 05/13/20 at 13:45 Diphenhydramine HCl (Benadryl) 25 mg PRN Q15MIN PRN IVP EPS symptoms 2'Haldol admin; Start 05/13/20 at 13:45 Clonidine HCl (Catapres) 0.1 mg PRN Q1HR PRN PO SBP > 180 or DBP > 100, MRX3; Start 05/13/20 at 13:45; Status Cancel Lorazepam (Ativan Inj) 2 mg PRN Q15MIN PRN IV SEE COMMENTS; Start 05/13/20 at 13:45; Status UNV Lorazepam (Ativan Inj) 4 mg PRN Q15MIN PRN IV SEE COMMENTS; Start 05/13/20 at 13:45; Status UNV Potassium Chloride (Klor-Con) 40 meq 1X ONCE PO Last administered on 05/13/20at 15:01; Start 05/13/20 at 13:45; Stop 05/13/20 at 13:49; Status DC Potassium Chloride (Klor-Con) 20 meq DAILYWBKFT PO Last administered on 05/14/20at 09:45; Start 05/14/20 at 08:00; Stop 05/14/20 at 11:33; Status DC Enoxaparin Sodium (Lovenox 40mg Syringe) 40 mg Q24H SQ Last administered on 05/14/20at 12:30; Start 05/13/20 at 14:00 Thiamine Mononitrate (Vitamin B-1) 100 mg DAILY PO ; Start 05/18/20 at 09:00; Status Cancel Multivitamins 10 ml/Thiamine HCl 100 mg/Folic Acid 1 mg/Sodium Chloride 1,011.2 ml @ 100 mls/ hr Q24H IV ; Start 05/13/20 at 15:00; Stop 05/18/20 at 01:07; Status UNV Potassium Chloride (Klor-Con) 40 meq 1X ONCE PO Last administered on 05/14/20at 12:28; Start 05/14/20 at 12:00; Stop 05/14/20 at 12:01; Status DC Potassium Chloride (Klor-Con) 40 meq DAILYWBKFT PO ; Start 05/15/20 at 08:00 Citalopram Hydrobromide (CeleXA) 20 mg DAILY PO ; Start 05/15/20 at 09:00 Clonidine HCl (Catapres) 0.1 mg PRN Q6HRS PRN PO SBP>160 OR DBP>90; Start 05/14/20 at 20:45 Folic Acid (Folic Acid) 1 mg DAILY PO ; Start 05/15/20 at 09:00 Al Hydroxide/Mg Hydroxide (Mylanta Plus Xs) 30 ml PRN DAILY PRN PO HEARTBURN / GAS; Start 05/14/20 at 20:45 Multivitamins (Thera M Plus) 1 tab DAILY PO ; Start 05/15/20 at 09:00 Pantoprazole Sodium (Protonix) 40 mg DAILYAC PO ; Start 05/15/20 at 07:30 Quetiapine Fumarate (SEROquel) 100 mg QHS PO Last administered on 05/14/20at 21:57; Start 05/14/20 at 21:00 Thiamine Mononitrate (Vitamin B-1) 100 mg DAILY PO ; Start 05/15/20 at 09:00 Magnesium Oxide (Magnesium Oxide) 400 mg DAILY PO ; Start 05/15/20 at 09:00 Non-Formulary Medication (Melatonin ) 1 tab QHS PO ; Start 05/14/20 at 21:00; Status UNV Active Scripts Active Bactrim Ds Tablet (Sulfamethoxazole/Trimethoprim) 1 Each Tablet 1 Tab PO BID 10 Days Pantoprazole Sodium (Pantoprazole Sodium) 40 Mg Tablet.dr 40 Mg PO DAILYAC 30 Days Mag-Al Plus Xs Suspension (Mag Hydrox/Al Hydrox/Simeth) 30 Ml Oral.susp 30 Ml PO PRN DAILY PRN 30 Days Catapres (Clonidine Hcl) 0.1 Mg Tablet 0.1 Mg PO PRN Q6HRS PRN 14 Days Up to TID for alcohol withdrawal symptoms for 2 weeks Lidocaine PATCH (Lidocaine) 1 Each Adh..patch 1 Patch TD DAILY Mag-Oxide (Magnesium Oxide) 400 Mg Tablet 400 Mg PO DAILY Thera-M Tablet (Multivits,Ca,Minerals/Iron/Fa) 1 Each Tablet 1 Tab PO DAILY 30 Days Vitamin B-1 (Thiamine Mononitrate) 100 Mg Tablet 100 Mg PO DAILY 30 Days Folic Acid 1 Mg Tablet 1 Mg PO DAILY 30 Days [Pantoprazole] 40 MG Tablet.dr 40 Mg PO DAILYAC 30 Days Reported Melatonin 3 Mg Tablet 1 Tab PO QHS Celexa (Citalopram Hydrobromide) 20 Mg Tablet 1 Tab PO DAILY Seroquel (Quetiapine Fumarate) 100 Mg Tablet 1 Tab PO QHS Vitals/I & O Vital Sign - Last 24 Hours 05/14/20 05/14/20 05/14/20 05/14/20 11:00 15:02 19:00 20:00 Temp 98.1 98.1 97.8 98.1 98.1 97.8 Pulse 62 70 66 Resp 18 18 18 B/P (MAP) 134/80 (98) 139/83 (101) 127/85 (99) Pulse Ox 96 95 99 O2 Delivery Room Air Room Air Room Air 05/14/20 05/15/20 05/15/20 23:00 03:00 07:00 Temp 99.0 97.9 98.1 99.0 97.9 98.1 Pulse 73 63 51 Resp 18 18 B/P (MAP) 130/83 (99) 127/83 (98) 94/52 (66) Pulse Ox 96 95 97 O2 Delivery Room Air Intake and Output 05/14/20 05/14/20 05/15/20 14:59 22:59 06:59 Intake Total 240 ml 1330 ml 240 ml Output Total 1775 ml 1100 ml Balance 240 ml -445 ml -860 ml Justicifation of Admission Dx: Justifications for Admission: Justification of Admission Dx: Yes KAY GUAJARDO MD May 15, 2020 09:31
--- NOTE | 2020-05-15 10:03 | NUR ---
GENTRY following. Discussed with RN, pt still on 1:1. Boo from [facility] coming back to re-eval pt today. GENTRY will continue to follow. Addendum: 05/15/20 at 1529 by THEODORE RINALDI Pt discharging to [facility] today. [facility] transportation set up for 1630. [facility] notified. Addendum: 05/15/20 at 1557 by THEODORE RINALDI [facility] contacted to advise they cannot transfer to [facility] because they do not have a contract. GENTRY arranged with [facility] - same transportation time. [facility]TIS notified. Addendum: 05/15/20 at 1614 by THEODORE RINALDI [facility] is now stating they will not take pt because he is suicidal. GENTRY spoke with [facility], [facility] is for psych and suicidal patients. Boo advised the 1500 RN often does this where they don't want to take patients. Boo will be back tomorrow to attempt again. [facility] transportation cancelled, RN notified.
[2020-05-15 11:00] VITALS: BP 137/82
--- NOTE | 2020-05-15 11:32 | PDOC3 ---
Discharge Summary Date of Admission: May 12, 2020 Date of Discharge: May 15, 2020 Follow-Up: 1-2 days Admitting Diagnosis comment: DISCHARGE DX Suicidal ideation and polysubstance abuse. severe alcohol abuse admitted. consult psychiatric assessment team. consult DR FRANCE have an incidental finding of urinary tract infection with moderate leukocyte esterase and white cells in his urine. IV antibiotics. Trend labs, home meds, DVT prophylaxis. Full code. 1:1 observation Continue hospitalization for crisis management and further treatment. Continue Celexa and Seroquel // PLACEMENT RAINBOW 05/15 PER GRACE 28 MIN pt exam, chart review D/C PLANNING > 50% of time spent with exam,, chart review, pt care coordination Vitals Vitals Vital Signs Date Time Temp Pulse Resp B/P (MAP) Pulse Ox O2 Delivery O2 Flow Rate FiO2 05/15/20 07:00 98.1 51 18 94/52 (66) 97 Room Air 98.1 Physical Exam Physical Exam withdrawn General: Alert, Oriented X3, Cooperative, No acute distress Heart: Regular rate, Normal S1, Normal S2 Lungs: Clear Abdomen: Normal bowel sounds, Soft, No tenderness Extremities: No clubbing, No cyanosis, No edema Skin: No rashes, No significant lesion FINAL DIAGNOSIS Problems Medical Problems: (1) At risk for seizures Status: Acute (2) Hypokalemia Status: Acute (3) Hypomagnesemia Status: Acute Brief Hospital Course Mr. Calderon is a 44 old [sex] who presented with [SEVERE DEPRESSION, SUICIDE IDEATION ] CONDITION AT DISCHARGE: Improved Discharge Medications Current Medications Multivitamins 10 ml/Thiamine HCl 100 mg/Folic Acid 1 mg/Sodium Chloride 1,011.2 ml @ 1,000.088 mls/hr 1X ONCE IV Last administered on 05/12/20at 02:05; Start 05/12/20 at 02:30; Stop 05/12/20 at 03:30; Status DC Ondansetron HCl (Zofran) 4 mg PRN Q8HRS PRN IV NAUSEA/VOMITING 1ST CHOICE Last administered on 05/12/20at 21:02; Start 05/12/20 at 02:15; Stop 05/13/20 at 02:14; Status DC Lorazepam (Ativan Inj) 1 mg PRN Q1HR PRN IV For CIWA 8-14 Last administered on 05/12/20at 04:59; Start 05/12/20 at 02:15; Stop 05/13/20 at 13:56; Status DC Lorazepam (Ativan Inj) 2 mg PRN Q1HR PRN IV For CIWA 15 or greater Last administered on 05/13/20at 11:06; Start 05/12/20 at 02:15; Stop 05/13/20 at 13:57; Status DC Ketorolac Tromethamine (Toradol 15mg Vial) 15 mg 1X ONCE IVP Last administered on 05/12/20at 02:45; Start 05/12/20 at 03:00; Stop 05/12/20 at 03:01; Status DC Potassium Chloride (Klor-Con) 40 meq 1X ONCE PO Last administered on 05/12/20at 02:45; Start 05/12/20 at 03:00; Stop 05/12/20 at 03:01; Status DC Ceftriaxone Sodium (Rocephin) 1 gm 1X ONCE IVP Last administered on 05/12/20at 03:08; Start 05/12/20 at 03:00; Stop 05/12/20 at 03:01; Status DC Magnesium Sulfate 50 ml @ 25 mls/hr 1X ONCE IV Last administered on 05/12/20at 03:07; Start 05/12/20 at 03:00; Stop 05/12/20 at 04:59; Status DC Tramadol HCl (Ultram) 50 mg PRN Q6HRS PRN PO MODERATE PAIN 4-6 Last administered on 05/14/20at 02:33; Start 05/12/20 at 05:00 Multivitamins 10 ml/Thiamine HCl 100 mg/Folic Acid 1 mg/Sodium Chloride 1,011.2 ml @ 1,000.088 mls/hr 1X ONCE IV Last administered on 05/12/20at 10:28; Start 05/12/20 at 11:00; Stop 05/12/20 at 12:00; Status DC Ceftriaxone Sodium (Rocephin) 1 gm Q24H IVP ; Start 05/13/20 at 09:00; Status Cancel Thiamine Mononitrate (Vitamin B-1) 100 mg DAILY PO Last administered on 05/13/20at 11:05; Start 05/13/20 at 09:00; Stop 05/13/20 at 13:44; Status DC Ceftriaxone Sodium (Rocephin) 1 gm Q24H IVP Last administered on 05/15/20at 07:24; Start 05/13/20 at 06:00 Ondansetron HCl (Zofran) 4 mg PRN Q6HRS PRN IVP NAUSEA/VOMITING 1ST CHOICE Last administered on 05/14/20at 16:50; Start 05/13/20 at 05:45 Lactobacillus Rhamnosus (Culturelle) 1 cap BID PO Last administered on 05/14/20at 21:57; Start 05/13/20 at 21:00 Multivitamins 10 ml/Thiamine HCl 100 mg/Folic Acid 1 mg/Sodium Chloride 1,011.2 ml @ 100 mls/ hr Q24H IV Last administered on 05/14/20at 16:46; Start 05/13/20 at 15:00; Stop 05/14/20 at 20:44; Status DC Folic Acid (Folic Acid) 1 mg DAILY PO ; Start 05/18/20 at 09:00; Status Cancel Lorazepam (Ativan) 4 mg PRN Q1HR PRN PO For CIWA 8-14 Last administered on 05/13/20at 23:24; Start 05/13/20 at 13:45 Lorazepam (Ativan) 8 mg PRN Q1HR PRN PO For CIWA 15 or greater; Start 05/13/20 at 13:45 Lorazepam (Ativan Inj) 2 mg PRN Q1HR PRN IV For CIWA 8-14 Last administered on 05/14/20at 01:13; Start 05/13/20 at 13:45 Lorazepam (Ativan Inj) 4 mg PRN Q1HR PRN IV For CIWA 15 or greater; Start 05/13/20 at 13:45 Haloperidol Lactate (Haldol Inj) 5 mg PRN Q4HRS PRN IVP Juan lucinatns,Confusn,Delirium; Start 05/13/20 at 13:45 Diphenhydramine HCl (Benadryl) 25 mg PRN Q15MIN PRN IVP EPS symptoms 2'Haldol admin; Start 05/13/20 at 13:45 Clonidine HCl (Catapres) 0.1 mg PRN Q1HR PRN PO SBP > 180 or DBP > 100, MRX3; Start 05/13/20 at 13:45; Status Cancel Lorazepam (Ativan Inj) 2 mg PRN Q15MIN PRN IV SEE COMMENTS; Start 05/13/20 at 13:45; Status UNV Lorazepam (Ativan Inj) 4 mg PRN Q15MIN PRN IV SEE COMMENTS; Start 05/13/20 at 13:45; Status UNV Potassium Chloride (Klor-Con) 40 meq 1X ONCE PO Last administered on 05/13/20at 15:01; Start 05/13/20 at 13:45; Stop 05/13/20 at 13:49; Status DC Potassium Chloride (Klor-Con) 20 meq DAILYWBKFT PO Last administered on 05/14/20at 09:45; Start 05/14/20 at 08:00; Stop 05/14/20 at 11:33; Status DC Enoxaparin Sodium (Lovenox 40mg Syringe) 40 mg Q24H SQ Last administered on 05/14/20at 12:30; Start 05/13/20 at 14:00 Thiamine Mononitrate (Vitamin B-1) 100 mg DAILY PO ; Start 05/18/20 at 09:00; Status Cancel Multivitamins 10 ml/Thiamine HCl 100 mg/Folic Acid 1 mg/Sodium Chloride 1,011.2 ml @ 100 mls/ hr Q24H IV ; Start 05/13/20 at 15:00; Stop 05/18/20 at 01:07; Status UNV Potassium Chloride (Klor-Con) 40 meq 1X ONCE PO Last administered on 05/14/20at 12:28; Start 05/14/20 at 12:00; Stop 05/14/20 at 12:01; Status DC Potassium Chloride (Klor-Con) 40 meq DAILYWBKFT PO ; Start 05/15/20 at 08:00 Citalopram Hydrobromide (CeleXA) 20 mg DAILY PO ; Start 05/15/20 at 09:00 Clonidine HCl (Catapres) 0.1 mg PRN Q6HRS PRN PO SBP>160 OR DBP>90; Start 05/14/20 at 20:45 Folic Acid (Folic Acid) 1 mg DAILY PO ; Start 05/15/20 at 09:00 Al Hydroxide/Mg Hydroxide (Mylanta Plus Xs) 30 ml PRN DAILY PRN PO HEARTBURN / GAS; Start 05/14/20 at 20:45 Multivitamins (Thera M Plus) 1 tab DAILY PO ; Start 05/15/20 at 09:00 Pantoprazole Sodium (Protonix) 40 mg DAILYAC PO ; Start 05/15/20 at 07:30 Quetiapine Fumarate (SEROquel) 100 mg QHS PO Last administered on 05/14/20at 21:57; Start 05/14/20 at 21:00 Thiamine Mononitrate (Vitamin B-1) 100 mg DAILY PO ; Start 05/15/20 at 09:00 Magnesium Oxide (Magnesium Oxide) 400 mg DAILY PO ; Start 05/15/20 at 09:00 Non-Formulary Medication (Melatonin ) 1 tab QHS PO ; Start 05/14/20 at 21:00; Status UNV Active Scripts Active Bactrim Ds Tablet (Sulfamethoxazole/Trimethoprim) 1 Each Tablet 1 Tab PO BID 10 Days Pantoprazole Sodium (Pantoprazole Sodium) 40 Mg Tablet.dr 40 Mg PO DAILYAC 30 Days Mag-Al Plus Xs Suspension (Mag Hydrox/Al Hydrox/Simeth) 30 Ml Oral.susp 30 Ml PO PRN DAILY PRN 30 Days Catapres (Clonidine Hcl) 0.1 Mg Tablet 0.1 Mg PO PRN Q6HRS PRN 14 Days Up to TID for alcohol withdrawal symptoms for 2 weeks Lidocaine PATCH (Lidocaine) 1 Each Adh..patch 1 Patch TD DAILY Mag-Oxide (Magnesium Oxide) 400 Mg Tablet 400 Mg PO DAILY Thera-M Tablet (Multivits,Ca,Minerals/Iron/Fa) 1 Each Tablet 1 Tab PO DAILY 30 Days Vitamin B-1 (Thiamine Mononitrate) 100 Mg Tablet 100 Mg PO DAILY 30 Days Folic Acid 1 Mg Tablet 1 Mg PO DAILY 30 Days [Pantoprazole] 40 MG Tablet.dr 40 Mg PO DAILYAC 30 Days Reported Melatonin 3 Mg Tablet 1 Tab PO QHS Celexa (Citalopram Hydrobromide) 20 Mg Tablet 1 Tab PO DAILY Seroquel (Quetiapine Fumarate) 100 Mg Tablet 1 Tab PO QHS Vital Signs Vital Signs Date Time Temp Pulse Resp B/P (MAP) Pulse Ox O2 Delivery O2 Flow Rate FiO2 05/15/20 11:00 97.9 57 18 137/82 (100) 97 Room Air 97.9 Labs Laboratory Tests Test 05/14/20 03:40 White Blood Count 3.4 x10^3/uL (4.0-11.0) Red Blood Count 4.58 x10^6/uL (4.30-5.70) Hemoglobin 14.5 g/dL (13.0-17.5) Hematocrit 41.5 % (39.0-53.0) Mean Corpuscular Volume 91 fL (79-100) Mean Corpuscular Hemoglobin 32 pg (25-35) Mean Corpuscular Hemoglobin Concent 35 g/dL (31-37) Red Cell Distribution Width 15.1 % (11.5-14.5) Platelet Count 150 x10^3/uL (140-400) Neutrophils (%) (Auto) 36 % (31-73) Lymphocytes (%) (Auto) 51 % (24-48) Monocytes (%) (Auto) 10 % (0-9) Eosinophils (%) (Auto) 2 % (0-3) Basophils (%) (Auto) 1 % (0-3) Neutrophils # (Auto) 1.2 x10^3/uL (1.8-7.7) Lymphocytes # (Auto) 1.8 x10^3/uL (1.0-4.8) Monocytes # (Auto) 0.3 x10^3/uL (0.0-1.1) Eosinophils # (Auto) 0.1 x10^3/uL (0.0-0.7) Basophils # (Auto) 0.0 x10^3/uL (0.0-0.2) Sodium Level 138 mmol/L (136-145) Potassium Level 3.1 mmol/L (3.5-5.1) Chloride Level 101 mmol/L (98-107) Carbon Dioxide Level 29 mmol/L (21-32) Anion Gap 8 (6-14) Blood Urea Nitrogen 7 mg/dL (8-26) Creatinine 0.6 mg/dL (0.7-1.3) Estimated GFR (Cockcroft-Gault) 147.8 Glucose Level 116 mg/dL (70-99) Calcium Level 7.5 mg/dL (8.5-10.1) Allergies Allergies Coded Allergies Type Severity Reaction Last Updated Verified cyclobenzaprine HCl Allergy Intermediate rash 03/12/15 Yes Disposition/Orders: Other (D/C TO [facility]) Justicifation of Admission Dx: Justifications for Admission: Justification of Admission Dx: Yes KAY GUAJARDO MD May 15, 2020 11:32
[2020-05-15] MEDS ORDERED: AMOX1TAB58 PO (11:35)
[2020-05-15] MEDS ORDERED: LACT1CAP19 PO (11:35)
[2020-05-15] MEDS ORDERED: POTA20TA4 PO (11:35)
--- NOTE | 2020-05-15 11:37 | SNU/HH DC ---
DISCHARGE ORDERS DISCHARGE INFORMATION: FINAL DIAGNOSIS Problems Medical Problems: (1) At risk for seizures Status: Acute (2) Hypokalemia Status: Acute (3) Hypomagnesemia Status: Acute CONDITION ON DISCHARGE: Stable CODE STATUS: Code Status: Full GROUP HOME: SNF STAY <30 DAYS: No HOSPICE: HOSPICE: No HOSPICE EVAL & TREAT: No LTAC: ADMIT TO LTAC: No POST DISCHARGE ORDERS: ACTIVITY ORDERS: Activity as tolerated WEIGHT BEARING STATUS: As tolerated DIET AFTER DISCHARGE: Regular WOUND/INCISION CARE: No wound care needed CHECKS AFTER DISCHARGE: CHECKS AFTER DISCHARGE: Check blood press - daily, Check blood sugar, ac/hs, Check your Temp as needed TREATMENT/EQUIPMENT ORDERS: ADAPTIVE EQUIPMENT NEEDED: None DISCHARGE MEDICATIONS: Home Meds Active Scripts Amoxicillin/Potassium Clav (AUGMENTIN 500-125 TABLET) 1 Each Tablet, 1 TAB PO BID for INFECTION for 10 Days, #20 TAB 0 Refills Prov:KAY GUAJARDO MD 05/15/20 Lactobacillus Rhamnosus Gg (CULTURELLE) 1 Each Cap.sprink, 1 CAP PO BID for SUPPLEMENT for 30 Days, #60 CAP Prov:KAY GUAJARDO MD 05/15/20 Potassium Chloride (KLOR-CON M20) 20 Meq Tab.er.prt, 40 MEQ PO DAILYWBKFT for SUPPLEMENT for 10 Days, #20 TAB.SR Prov:KAY GUAJARDO MD 05/15/20 Pantoprazole Sodium (PANTOPRAZOLE SODIUM ) 40 Mg Tablet.dr, 40 MG PO DAILYAC for GERD for 30 Days, #30 TAB.SR Prov:KAY GUAJARDO MD 12/29/19 Mag Hydrox/Al Hydrox/Simeth (MAG-AL PLUS XS SUSPENSION) 30 Ml Oral.susp, 30 ML PO PRN DAILY PRN for HEARTBURN / GAS for 30 Days, #120 MISC Prov:KAY GUAJARDO MD 12/29/19 Clonidine Hcl (CATAPRES) 0.1 Mg Tablet, 0.1 MG PO PRN Q6HRS PRN for SBP>160 OR DBP>90 for 14 Days, #21 TAB Up to TID for alcohol withdrawal symptoms for 2 weeks Prov:NATHALY DUVALL MD 08/26/19 Lidocaine (Lidocaine PATCH ) 1 Each Adh..patch, 1 PATCH TD DAILY, #5 PATCH Prov:NESHA RICKS MD 04/27/18 Magnesium Oxide (MAG-OXIDE) 400 Mg Tablet, 400 MG PO DAILY, #5 TAB Prov:NESHA RICKS MD 04/27/18 Multivits,Ca,Minerals/Iron/Fa (THERA-M TABLET) 1 Each Tablet, 1 TAB PO DAILY for 30 Days, #30 TAB Prov:ROSY OQUENDO MD 02/08/18 Thiamine Mononitrate (VITAMIN B-1) 100 Mg Tablet, 100 MG PO DAILY for 30 Days, #30 TAB Prov:ROSY OQUENDO MD 02/08/18 Folic Acid (FOLIC ACID) 1 Mg Tablet, 1 MG PO DAILY for 30 Days, #30 TAB Prov:ROSY OQUENDO MD 02/08/18 Reported Medications Citalopram Hydrobromide (CELEXA) 20 Mg Tablet, 1 TAB PO DAILY, #90 TAB 3 Refills 07/07/18 Quetiapine Fumarate (SEROQUEL) 100 Mg Tablet, 1 TAB PO QHS, #30 TAB 1 Refill 07/07/18 Discontinued Reported Medications Melatonin (MELATONIN) 3 Mg Tablet, 1 TAB PO QHS, #30 TAB 2 Refills 07/07/18 Discontinued Scripts Sulfamethoxazole/Trimethoprim (BACTRIM DS TABLET) 1 Each Tablet, 1 TAB PO BID for 10 Days, #20 TAB 0 Refills Prov:BUDDY JUAREZ Jr. DO 02/20/20 [Pantoprazole] 40 [address]T.DR Ackerman Conflict Check, 40 MG PO DAILYAC for 30 Days Prov:ROSY OQUENDO MD 02/08/18 KAY GUAJARDO MD May 15, 2020 11:37
[2020-05-15] MEDS: PANTOPRAZOLE 40 MG TABLET.DR. PO SCH (11:48)
[2020-05-15] MEDS: MAGNESIUM OXIDE 400 MG TABLET PO SCH (11:48)
[2020-05-15] MEDS: CITALOPRAM 20 MG TABLET. PO SCH (11:48)
[2020-05-15] MEDS: POTASSIUM CHLORIDE 20 MEQ TABLET.ER. PO SCH (11:48)
[2020-05-15] MEDS: FOLIC ACID 1 MG TABLET. PO SCH (11:49)
[2020-05-15] MEDS: THIAMINE 100 MG TABLET. PO SCH (11:49)
[2020-05-15] MEDS: LACTOBACILLUS RHAMNOSUS GG 1 CAPSULE. PO SCH ×2 (11:49→21:07)
[2020-05-15] MEDS: MULTIVITAMIN with MINERAL TABLET. PO SCH (11:49)
[2020-05-15] MEDS ORDERED: MAGNESIUM OXIDE 400 MG TABLET ONE (12:00)
[2020-05-15] MEDS: ENOXAPARIN 40 MG/0.4 ML SYRINGE. SQ SCH (13:44)
[2020-05-15 15:00] VITALS: BP 122/82
[2020-05-15 19:00] VITALS: BP 152/90
[2020-05-15] MEDS: QUEtiapine 100 MG TABLET. PO SCH (21:07)
[2020-05-15 23:00] VITALS: BP 141/93
[2020-05-16 05:11] VITALS: BP 115/75
[2020-05-16] MEDS: cefTRIAXone IV Push 1 GM VIAL. IVP SCH (05:41)
[2020-05-16 07:00] VITALS: BP 114/75
--- NOTE | 2020-05-16 09:33 | NUR ---
SW following. Discussed with RN, pt discharging to [facility] today. [facility] will transport around 10am. RN notified.
[2020-05-16] MEDS: PANTOPRAZOLE 40 MG TABLET.DR. PO SCH (09:38)
[2020-05-16] MEDS: CITALOPRAM 20 MG TABLET. PO SCH (09:38)
[2020-05-16] MEDS: POTASSIUM CHLORIDE 20 MEQ TABLET.ER. PO SCH (09:38)
[2020-05-16] MEDS: MULTIVITAMIN with MINERAL TABLET. PO SCH (09:38)
[2020-05-16] MEDS: LACTOBACILLUS RHAMNOSUS GG 1 CAPSULE. PO SCH (09:38)
[2020-05-16] MEDS: FOLIC ACID 1 MG TABLET. PO SCH (09:38)
[2020-05-16] MEDS: MAGNESIUM OXIDE 400 MG TABLET PO SCH (09:38)
[2020-05-16] MEDS: THIAMINE 100 MG TABLET. PO SCH (09:39)
[2020-05-16] MEDS ORDERED: MAGNESIUM OXIDE 400 MG TABLET ONE (09:40)
--- NOTE | 2020-05-16 10:20 | NUR ---
[facility] HERE TO TRANSPORT PATIENT TO [facility], PATIENT ALERT AND VERBALLY RESPONSIVE, PERSONAL BELONGINGS RETRIEVED FROM THE MED ROOM AND GIVEN TO THE CULTURAL HISTORIAN, SALINE LOCK REMOVED FROM PATIENTS' RIGHT FA, BANDAGE APPLIED.
--- NOTE | 2020-05-16 10:45 | PDOC ---
PROGRESS NOTES Date of Service: DATE: 05/16/20 TIME: 10:45 History of Present Illness History of Present Illness DISCHARGE DX Suicidal ideation and polysubstance abuse. severe alcohol abuse admitted. consult psychiatric assessment team. consult DR FRANCE have an incidental finding of urinary tract infection with moderate leukocyte esterase and white cells in his urine. IV antibiotics. Trend labs, home meds, DVT prophylaxis. Full code. 1:1 observation Continue hospitalization for crisis management and further treatment. Continue Celexa and Seroquel // PLACEMENT RAINBOW 27 MIN pt exam, chart review D/C PLANNING > 50% of time spent with exam,, chart review, pt care coordination Vitals Vitals Vital Signs Date Time Temp Pulse Resp B/P (MAP) Pulse Ox O2 Delivery O2 Flow Rate FiO2 05/16/20 07:00 97.8 60 17 114/75 (88) 97 Room Air 97.8 Physical Exam Physical Exam withdrawn General: Alert, Oriented X3, Cooperative, No acute distress Heart: Regular rate, Normal S1, Normal S2 Lungs: Clear Abdomen: Normal bowel sounds, Soft, No tenderness Extremities: No clubbing, No cyanosis, No edema Skin: No rashes, No significant lesion Assessment and Plan Assessmemt and Plan Problems Medical Problems: (1) At risk for seizures Status: Acute (2) Hypokalemia Status: Acute (3) Hypomagnesemia Status: Acute Comment Review of Relevant I have reviewed the following items casi (where applicable) has been applied. Labs Microbiology 05/12/20 Urine Culture - Final, Complete Medications Current Medications Multivitamins 10 ml/Thiamine HCl 100 mg/Folic Acid 1 mg/Sodium Chloride 1,011.2 ml @ 1,000.088 mls/hr 1X ONCE IV Last administered on 05/12/20at 02:05; Start 05/12/20 at 02:30; Stop 05/12/20 at 03:30; Status DC Ondansetron HCl (Zofran) 4 mg PRN Q8HRS PRN IV NAUSEA/VOMITING 1ST CHOICE Last administered on 05/12/20at 21:02; Start 05/12/20 at 02:15; Stop 05/13/20 at 02:14; Status DC Lorazepam (Ativan Inj) 1 mg PRN Q1HR PRN IV For CIWA 8-14 Last administered on 05/12/20at 04:59; Start 05/12/20 at 02:15; Stop 05/13/20 at 13:56; Status DC Lorazepam (Ativan Inj) 2 mg PRN Q1HR PRN IV For CIWA 15 or greater Last administered on 05/13/20at 11:06; Start 05/12/20 at 02:15; Stop 05/13/20 at 13:57; Status DC Ketorolac Tromethamine (Toradol 15mg Vial) 15 mg 1X ONCE IVP Last administered on 05/12/20at 02:45; Start 05/12/20 at 03:00; Stop 05/12/20 at 03:01; Status DC Potassium Chloride (Klor-Con) 40 meq 1X ONCE PO Last administered on 05/12/20at 02:45; Start 05/12/20 at 03:00; Stop 05/12/20 at 03:01; Status DC Ceftriaxone Sodium (Rocephin) 1 gm 1X ONCE IVP Last administered on 05/12/20at 03:08; Start 05/12/20 at 03:00; Stop 05/12/20 at 03:01; Status DC Magnesium Sulfate 50 ml @ 25 mls/hr 1X ONCE IV Last administered on 05/12/20at 03:07; Start 05/12/20 at 03:00; Stop 05/12/20 at 04:59; Status DC Tramadol HCl (Ultram) 50 mg PRN Q6HRS PRN PO MODERATE PAIN 4-6 Last administered on 05/14/20at 02:33; Start 05/12/20 at 05:00 Multivitamins 10 ml/Thiamine HCl 100 mg/Folic Acid 1 mg/Sodium Chloride 1,011.2 ml @ 1,000.088 mls/hr 1X ONCE IV Last administered on 05/12/20at 10:28; Start 05/12/20 at 11:00; Stop 05/12/20 at 12:00; Status DC Ceftriaxone Sodium (Rocephin) 1 gm Q24H IVP ; Start 05/13/20 at 09:00; Status Cancel Thiamine Mononitrate (Vitamin B-1) 100 mg DAILY PO Last administered on 05/13/20at 11:05; Start 05/13/20 at 09:00; Stop 05/13/20 at 13:44; Status DC Ceftriaxone Sodium (Rocephin) 1 gm Q24H IVP Last administered on 05/16/20at 05:41; Start 05/13/20 at 06:00 Ondansetron HCl (Zofran) 4 mg PRN Q6HRS PRN IVP NAUSEA/VOMITING 1ST CHOICE Last administered on 05/14/20at 16:50; Start 05/13/20 at 05:45 Lactobacillus Rhamnosus (Culturelle) 1 cap BID PO Last administered on 05/16/20at 09:38; Start 05/13/20 at 21:00 Multivitamins 10 ml/Thiamine HCl 100 mg/Folic Acid 1 mg/Sodium Chloride 1,011.2 ml @ 100 mls/ hr Q24H IV Last administered on 05/14/20at 16:46; Start 05/13/20 at 15:00; Stop 05/14/20 at 20:44; Status DC Folic Acid (Folic Acid) 1 mg DAILY PO ; Start 05/18/20 at 09:00; Status Cancel Lorazepam (Ativan) 4 mg PRN Q1HR PRN PO For CIWA 8-14 Last administered on 05/13/20at 23:24; Start 05/13/20 at 13:45 Lorazepam (Ativan) 8 mg PRN Q1HR PRN PO For CIWA 15 or greater; Start 05/13/20 at 13:45 Lorazepam (Ativan Inj) 2 mg PRN Q1HR PRN IV For CIWA 8-14 Last administered on 05/14/20at 01:13; Start 05/13/20 at 13:45 Lorazepam (Ativan Inj) 4 mg PRN Q1HR PRN IV For CIWA 15 or greater; Start 05/13/20 at 13:45 Haloperidol Lactate (Haldol Inj) 5 mg PRN Q4HRS PRN IVP Hallucinatns ,Confusn,Delirium; Start 05/13/20 at 13:45 Diphenhydramine HCl (Benadryl) 25 mg PRN Q15MIN PRN IVP EPS symptoms 2'Haldol admin; Start 05/13/20 at 13:45 Clonidine HCl (Catapres) 0.1 mg PRN Q1HR PRN PO SBP > 180 or DBP > 100, MRX3; Start 05/13/20 at 13:45; Status Cancel Lorazepam (Ativan Inj) 2 mg PRN Q15MIN PRN IV SEE COMMENTS; Start 05/13/20 at 13:45; Status UNV Lorazepam (Ativan Inj) 4 mg PRN Q15MIN PRN IV SEE COMMENTS; Start 05/13/20 at 13:45; Status UNV Potassium Chloride (Klor-Con) 40 meq 1X ONCE PO Last administered on 05/13/20at 15:01; Start 05/13/20 at 13:45; Stop 05/13/20 at 13:49; Status DC Potassium Chloride (Klor-Con) 20 meq DAILYWBKFT PO Last administered on 05/14/20at 09:45; Start 05/14/20 at 08:00; Stop 05/14/20 at 11:33; Status DC Enoxaparin Sodium (Lovenox 40mg Syringe) 40 mg Q24H SQ Last administered on 05/15/20at 13:44; Start 05/13/20 at 14:00 Thiamine Mononitrate (Vitamin B-1) 100 mg DAILY PO ; Start 05/18/20 at 09:00; Status Cancel Multivitamins 10 ml/Thiamine HCl 100 mg/Folic Acid 1 mg/Sodium Chloride 1,011.2 ml @ 100 mls/ hr Q24H IV ; Start 05/13/20 at 15:00; Stop 05/18/20 at 01:07; Status UNV Potassium Chloride (Klor-Con) 40 meq 1X ONCE PO Last administered on 05/14/20at 12:28; Start 05/14/20 at 12:00; Stop 05/14/20 at 12:01; Status DC Potassium Chloride (Klor-Con) 40 meq DAILYWBKFT PO Last administered on 05/16/20at 09:38; Start 05/15/20 at 08:00 Citalopram Hydrobromide (CeleXA) 20 mg DAILY PO Last administered on 05/16/20at 09:38; Start 05/15/20 at 09:00 Clonidine HCl (Catapres) 0.1 mg PRN Q6HRS PRN PO SBP>160 OR DBP>90; Start 05/14/20 at 20:45 Folic Acid (Folic Acid) 1 mg DAILY PO Last administered on 05/16/20 09:38; Start 05/15/20 at 09:00 Al Hydroxide/Mg Hydroxide (Mylanta Plus Xs) 30 ml PRN DAILY PRN PO HEARTBURN / GAS; Start 05/14/20 at 20:45 Multivitamins (Thera M Plus) 1 tab DAILY PO Last administered on 05/16/20 09:38; Start 05/15/20 at 09:00 Pantoprazole Sodium (Protonix) 40 mg DAILYAC PO Last administered on 05/16/20 09:38; Start 05/15/20 at 07:30 Quetiapine Fumarate (SEROquel) 100 mg QHS PO Last administered on 05/15/20 21:07; Start 05/14/20 at 21:00 Thiamine Mononitrate (Vitamin B-1) 100 mg DAILY PO Last administered on 05/16/20 09:39; Start 05/15/20 at 09:00 Magnesium Oxide (Magnesium Oxide) 400 mg DAILY PO Last administered on 05/16/20 09:38; Start 05/15/20 at 09:00 Non-Formulary Medication (Melatonin ) 1 tab QHS PO ; Start 05/14/20 at 21:00; Status UNV Active Scripts Active Augmentin 500-125 Tablet (Amoxicillin/Potassium Clav) 1 Each Tablet 1 Tab PO BID 10 Days Culturelle (Lactobacillus Rhamnosus Gg) 1 Each Cap.sprink 1 Cap PO BID 30 Days Klor-Con M20 (Potassium Chloride) 20 Meq Tab.er.prt 40 Meq PO DAILYWBKFT 10 Days Pantoprazole Sodium (Pantoprazole Sodium) 40 Mg Tablet.dr 40 Mg PO DAILYAC 30 Days Mag-Al Plus Xs Suspension (Mag Hydrox/Al Hydrox/Simeth) 30 Ml Oral.susp 30 Ml PO PRN DAILY PRN 30 Days Catapres (Clonidine Hcl) 0.1 Mg Tablet 0.1 Mg PO PRN Q6HRS PRN 14 Days Up to TID for alcohol withdrawal symptoms for 2 weeks Lidocaine PATCH (Lidocaine) 1 Each Adh..patch 1 Patch TD DAILY Mag-Oxide (Magnesium Oxide) 400 Mg Tablet 400 Mg PO DAILY Thera-M Tablet (Multivits,Ca,Minerals/Iron/Fa) 1 Each Tablet 1 Tab PO DAILY 30 Days Vitamin B-1 (Thiamine Mononitrate) 100 Mg Tablet 100 Mg PO DAILY 30 Days Folic Acid 1 Mg Tablet 1 Mg PO DAILY 30 Days Reported Celexa (Citalopram Hydrobromide) 20 Mg Tablet 1 Tab PO DAILY Seroquel (Quetiapine Fumarate) 100 Mg Tablet 1 Tab PO QHS Vitals/I & O Vital Sign - Last 24 Hours 05/15/20 05/15/20 05/15/20 05/15/20 11:00 15:00 19:00 19:00 Temp 97.9 98.2 97.9 97.9 98.2 97.9 Pulse 57 63 63 Resp 18 20 18 B/P (MAP) 137/82 (100) 122/82 (95) 152/90 (110) Pulse Ox 97 96 96 O2 Delivery Room Air Room Air Room Air 05/15/20 05/15/20 05/16/20 05/16/20 20:00 23:00 05:11 07:00 Temp 98.3 97.5 97.8 98.3 97.5 97.8 Pulse 62 55 60 Resp 18 18 17 B/P (MAP) 141/93 (109) 115/75 (88) 114/75 (88) Pulse Ox 96 96 97 O2 Delivery Room Air Room Air Room Air Room Air Intake and Output 05/15/20 05/15/20 05/16/20 15:00 23:00 07:00 Intake Total 420 ml 480 ml Output Total 0 ml Balance 420 ml 480 ml Justicifation of Admission Dx: Justifications for Admission: Justification of Admission Dx: Yes KAY GUAJARDO MD May 16, 2020 10:45
[2020-05-18] MEDS ORDERED: FOLIC ACID 1 MG TABLET. PO SCH (09:00)
[2020-05-18] MEDS ORDERED: THIAMINE 100 MG TABLET. PO SCH (09:00)
== END 2020-05-16 10:25 | DRG 897 ==
LOC: ER 01:40 → 5 NORTH 03:30
PROVIDERS: ADMIT Internal Medicine; ATTEND Internal Medicine
DX: F10.129 Alcohol abuse with intoxication, unspecified (principal); N30.00 Acute cystitis without hematuria; R45.851 Suicidal ideations; F33.2 Major depressive disorder, recurrent severe without psychotic features; E87.6 Hypokalemia; E11.9 Type 2 diabetes mellitus without complications; E83.42 Hypomagnesemia; F12.90 Cannabis use, unspecified, uncomplicated; F15.10 Other stimulant abuse, uncomplicated; F17.200 Nicotine dependence, unspecified, uncomplicated; F41.1 Generalized anxiety disorder; F43.10 Post-traumatic stress disorder, unspecified; I10 Essential (primary) hypertension; Z83.3 Family history of diabetes mellitus; Z91.5 Personal history of self-harm; F41.8 Other specified anxiety disorders; G89.29 Other chronic pain; Z88.8 Allergy status to other drugs, medicaments and biological substances
CPT/HCPCS: 36415; 80048; 80053; 80307; 80329; 81001; 83735; 85025; 85610; 85730; 87077; 87086; 93005; 96365; 96367; 96375; 99285; G0480; J0696; J1650; J1885; J2060; J2405; J3411; J3475; J3490; J7030; G0378

== ENCOUNTER 2021-03-03 12:20 | Emergency (ER) | payer SELFPAY ==
[~2021-03-03] VITALS: Ht 175.3 cm; Wt 95.5 kg
[~2021-03-03 12:20] MED LIST changes: +AMOX1TAB58 PO; +LACT1CAP19 PO; -MULT1TAB90 PO; +MULT1TAB92 PO; +POTA20TA4 PO
[2021-03-03] MEDS ORDERED: MULTIVIT INFUSN,ADULT 4,VIT K 10 ML, THIAMINE INJ 100 MG, FOLIC ACID INJ 1 MG in IV NOR... IV ONE (14:30)
[2021-03-03 14:37] LABS: BASO # 0.1 x10^3/uL (0.0-0.2); BASO % 1 % (0-3); EOS # 0.1 x10^3/uL (0.0-0.7); EOS % 2 % (0-3); HEMATOCRIT 47.5 % (39.0-53.0); HEMOGLOBIN 16.2 g/dL (13.0-17.5); LYMPH # 3.2 x10^3/uL (1.0-4.8); LYMPH % 50 % (24-48); MEAN CORPUSCULAR HEMOGLOBIN 29 pg (25-35); MEAN CORPUSCULAR HGB CONC 34 g/dL (31-37); MEAN CORPUSCULAR VOLUME 86 fL (79-100); MONO # 0.3 x10^3/uL (0.0-1.1); MONO % 5 % (0-9); NEUT # 2.7 x10^3/uL (1.8-7.7); NEUT % 43 % (31-73); PLATELET COUNT 291 x10^3/uL (140-400); RED BLOOD COUNT 5.52 x10^6/uL (4.30-5.70); WHITE BLOOD COUNT 6.4 x10^3/uL (4.0-11.0)
[2021-03-03 14:48] LABS: CALCIUM 8.4 mg/dL (8.5-10.1); CREATININE 0.7 mg/dL (0.7-1.3); GFR 123.1; POTASSIUM 3.6 mmol/L (3.5-5.1)
[2021-03-03 14:53] LABS: ALBUMIN 4.3 g/dL (3.4-5.0); ALBUMIN/GLOBULIN RATIO 1.3 (1.0-1.7); TOTAL BILIRUBIN 0.5 mg/dL (0.2-1.0); TOTAL PROTEIN 7.7 g/dL (6.4-8.2)
[2021-03-03 14:54] LABS: ACETAMIN < 2 mcg/ml (10-30); ETHANOL 277 mg/dL (0-10); SALIC < 2.8 mg/dL (2.8-20.0)
[2021-03-03 16:49] VITALS: BP 111/58
--- NOTE | 2021-03-03 17:18 | PHYS DOC ---
Past Medical History Past Medical History: Alcoholism, CVA, Diabetes-Type I, Seizure Additional Past Medical Histor: chronic pain, PTSD, substance abuse, INSOMNIA, NEUROPATHY Past Surgical History: Other Additional Past Surgical Histo: COLOSTOMY Smoking Status: Current Every Day Smoker Alcohol Use: Heavy Additional Information: SOBER FOR 6 MO, STATED "FELL OF WAGON" LAST NIGHT AND DRANK 2 1-PINT ETOH. Drug Use: Marijuana, Methamphetamine General Adult EDM: Chief Complaint: FLANK PAIN HPI: HPI: Patient is a 45 year old male with history of diabetes type 1, alcoholism, alcohol induced seizures, who presents to the ED today to be evaluated after drinking alcohol. Patient states he was 6 months free of alcohol use but yeste rday he had 1 gallon of hard liquor. Patient states he has a lot of stress going on at home right now. He states his daughter and grandchild homeless right now. Patient states the stress send him back to drinking. He is complaining of generalized abdominal mild intermittent pain worse on the left lower abdomen. Denies anything specifically exacerbating or relieving his pain. He states he needs help with alcoholism. He currently has a sponsor for his alcohol program. Review of Systems: Review of Systems: Constitutional: Denies fever or chills. [] Eyes: Denies change in visual acuity. [] HENT: Denies nasal congestion or sore throat. [] Respiratory: Denies cough or shortness of breath. [] Cardiovascular: Denies chest pain or edema. [] GI: Reports generalized abdominal pain, denies nausea, vomiting or diarrhea : Denies dysuria. [] Musculoskeletal: Reports flank pain Integument: Denies rash. [] Neurologic: Denies headache, focal weakness or sensory changes. [] Psychiatric: Reports alcohol use Heart Score: C/O Chest Pain: N/A Risk Factors: Risk Factors: DM, Current or recent (<one month) smoker, HTN, HLP, family history of CAD, obesity. Risk Scores: Score 0 - 3: 2.5% MACE over next 6 weeks - Discharge Home Score 4 - 6: 20.3% MACE over next 6 weeks - Admit for Clinical Observation Score 7 - 10: 72.7% MACE over next 6 weeks - Early Invasive Strategies Current Medications: Current Medications Medications (Trade) Dose Ordered Sig/Negin Start Time Stop Time Status Last Admin Dose Admin Multivitamins 10 ml/Thiamine HCl 100 mg/Folic Acid 1 mg/Sodium Chloride 1,011.2 ml @ 1,000.088 mls/hr 1X ONCE 03/03/21 14:30 03/03/21 15:30 DC 03/03/21 14:41 1,000.088 MLS/HR Allergies: Allergies: Allergies Coded Allergies Type Severity Reaction Last Updated Verified cyclobenzaprine HCl Allergy Intermediate rash 03/12/15 Yes Physical Exam: PE: Constitutional: Well developed, well nourished, no acute distress, non-toxic appearance. [] HENT: Normocephalic, atraumatic, bilateral external ears normal, oropharynx moist, no oral exudates, nose normal. [] Eyes: PERRLA, EOMI, conjunctiva normal, no discharge. [] Neck: Normal range of motion, no tenderness, supple, no stridor. [] Cardiovascular:Heart rate regular rhythm, no murmur [] Lungs & Thorax: Bilateral breath sounds clear to auscultation [] Abdomen: Bowel sounds normal, soft, no tenderness, no masses, no pulsatile masses. [] Skin: Warm, dry, no erythema, no rash. [] Back: No tenderness, no CVA tenderness. [] Extremities: No tenderness, no cyanosis, no clubbing, ROM intact, no edema. [] Neurologic: Alert and oriented X 3, normal motor function, normal sensory fun ction, no focal deficits noted. [] Psychologic: Affect normal, judgement normal, mood normal. [] Current Patient Data: Labs: Laboratory Tests Test 03/03/21 14:18 White Blood Count 6.4 x10^3/uL (4.0-11.0) Red Blood Count 5.52 x10^6/uL (4.30-5.70) Hemoglobin 16.2 g/dL (13.0-17.5) Hematocrit 47.5 % (39.0-53.0) Mean Corpuscular Volume 86 fL (79-100) Mean Corpuscular Hemoglobin 29 pg (25-35) Mean Corpuscular Hemoglobin Concent 34 g/dL (31-37) Red Cell Distribution Width 14.0 % (11.5-14.5) Platelet Count 291 x10^3/uL (140-400) Neutrophils (%) (Auto) 43 % (31-73) Lymphocytes (%) (Auto) 50 % (24-48) H Monocytes (%) (Auto) 5 % (0-9) Eosinophils (%) (Auto) 2 % (0-3) Basophils (%) (Auto) 1 % (0-3) Neutrophils # (Auto) 2.7 x10^3/uL (1.8-7.7) Lymphocytes # (Auto) 3.2 x10^3/uL (1.0-4.8) Monocytes # (Auto) 0.3 x10^3/uL (0.0-1.1) Eosinophils # (Auto) 0.1 x10^3/uL (0.0-0.7) Basophils # (Auto) 0.1 x10^3/uL (0.0-0.2) Sodium Level 147 mmol/L (136-145) H Potassium Level 3.6 mmol/L (3.5-5.1) Chloride Level 106 mmol/L (98-107) Carbon Dioxide Level 27 mmol/L (21-32) Anion Gap 14 (6-14) Blood Urea Nitrogen 12 mg/dL (8-26) Creatinine 0.7 mg/dL (0.7-1.3) Estimated GFR (Cockcroft-Gault) 123.1 BUN/Creatinine Ratio 17 (6-20) Glucose Level 111 mg/dL (70-99) H Calcium Level 8.4 mg/dL (8.5-10.1) L Total Bilirubin 0.5 mg/dL (0.2-1.0) Aspartate Amino Transferase (AST) 27 U/L (15-37) Alanine Aminotransferase (ALT) 32 U/L (16-63) Alkaline Phosphatase 73 U/L (46-116) Total Protein 7.7 g/dL (6.4-8.2) Albumin 4.3 g/dL (3.4-5.0) Albumin/Globulin Ratio 1.3 (1.0-1.7) Lipase 73 U/L (73-393) Salicylates Level < 2.8 mg/dL (2.8-20.0) L Salicylate Last Dose Date Salicylate Last Dose Time Acetaminophen Level < 2 mcg/ml (10-30) L Acetaminophen Last Dose Date Acetaminophen Last Dose Time Ethyl Alcohol Level 277 mg/dL (0-10) H Laboratory Tests 03/03/21 14:18 Laboratory Tests 03/03/21 14:18 Vital Signs: Vital Signs Date Time Temp Pulse Resp B/P (MAP) Pulse Ox O2 Delivery O2 Flow Rate FiO2 03/03/21 16:49 78 111/58 (75) 94 Room Air 03/03/21 13:45 98.3 16 98.3 EKG: EKG: [] Radiology/Procedures: Radiology/Procedures: [] Course & Med Decision Making: Course & Med Decision Making Pertinent Labs and Imaging studies reviewed. (See chart for details) This is a 45-year-old male patient well-known to this ED for alcoholism pres enting today stating he fell off the bandwagon and started drinking last night. Patient has been alcohol free for 6 months. He is requesting help with alcoholism. CBC with a normal WBC, CMP with no acute findings, lipase is normal, alcohol level 277, patient is awake alert oriented ambulates with no issues Pat team came and talked to patient. Resources were provided. Patient refused to give us urine. Discharge to home Dragon Disclaimer: Regis Disclaimer: This electronic medical record was generated, in whole or in part, using a voice recognition dictation system. Departure Departure Impression: Primary Impression: Alcohol intoxication Qualified Codes: F10.929 - Alcohol use, unspecified with intoxication, unspecified Disposition: 01 HOME / SELF CARE / HOMELESS Condition: STABLE Referrals: NO PCP (PCP) follow up with resources provided by PAT team Patient Instructions: Alcohol Intoxication Additional Instructions: You were evaluated in the emergency room for alcohol use. Please follow-up with resources provided by the pat team. ALEXANDREA WILSON LOSS CONTROL REPRESENTATIVE March 03, 2021 17:18
[2021-03-03 18:14] LABS: BILIRUBIN,URINE NEGATIVE (NEG); CLARITY,URINE TURBID; COLOR,URINE YELLOW; NITRITE,URINE POSITIVE (NEG); PROTEIN,URINE NEGATIVE (NEG-TRACE); UROBILINOGEN,URINE 0.2 mg/dL (0.2 mg/dL)
[2021-03-03 18:18] LABS: BARBITURATES NEG (NEG); BENZODIAZEPINES NEG (NEG); CANNABINOIDS POS (NEG); COCAINE NEG (NEG); METHADONE NEG (NEG); OPIATES NEG (NEG); PHENCYCLIDINE NEG (NEG)
[2021-03-03 18:20] LABS: AMPHETAMINE/METHAMPHETAMINE POS (NEG)
[2021-03-03 18:33] LABS: BACTERIA,URINE MANY /HPF (0-FEW)
[2021-03-03 18:36] LABS: RBC,URINE 0 /HPF (0-2)
== END 2021-03-03 17:50 | disposition home or self-care (01) ==
LOC: ER 12:20
DX: F10.229 Alcohol dependence with intoxication, unspecified (principal); Y90.8 Blood alcohol level of 240 mg/100 ml or more; R10.32 Left lower quadrant pain; R10.84 Generalized abdominal pain; G89.29 Other chronic pain; E10.40 Type 1 diabetes mellitus with diabetic neuropathy, unspecified; Z86.73 Personal history of transient ischemic attack (TIA), and cerebral infarction without residual deficits; F17.200 Nicotine dependence, unspecified, uncomplicated; Z93.3 Colostomy status; Z88.8 Allergy status to other drugs, medicaments and biological substances
CPT/HCPCS: 36415; 80053; 80307; 80329; 81001; 83690; 85025; 87086; 96365; 96366; 99285; G0480; J3411; J3490; J7030

== ENCOUNTER 2022-03-05 02:06 | Inpatient (IN) | payer SELFPAY ==
[~2022-03-05] VITALS: Ht 175.3 cm; Wt 81.8 kg
[~2022-03-05 02:06] MED LIST changes: +DIAZ2TAB PO; +HYDR1TAB86 PO; +METF10007 PO; +POTA-121 PO; -POTA20TA4 PO
[2022-03-05] MEDS ORDERED: IPRATRPIUM/ALBUTEROL 0.5/2.5MG 3 ML NEBU. NEB ONE (02:45)
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
[2022-03-05 02:46] LABS: BASO # 0.1 x10^3/uL (0.0-0.2); BASO % 1 % (0-3); EOS # 0.1 x10^3/uL (0.0-0.7); EOS % 2 % (0-3); HEMATOCRIT 45.6 % (39.0-53.0); HEMOGLOBIN 15.8 g/dL (13.0-17.5); LYMPH # 2.8 x10^3/uL (1.0-4.8); LYMPH % 41 % (24-48); MEAN CORPUSCULAR HEMOGLOBIN 32 pg (25-35); MEAN CORPUSCULAR HGB CONC 35 g/dL (31-37); MEAN CORPUSCULAR VOLUME 92 fL (79-100); MONO # 0.5 x10^3/uL (0.0-1.1); MONO % 7 % (0-9); NEUT # 3.4 x10^3/uL (1.8-7.7); NEUT % 49 % (31-73); PLATELET COUNT 258 x10^3/uL (140-400); RED BLOOD COUNT 4.96 x10^6/uL (4.30-5.70); RED CELL DISTRIBUTION WIDTH 14.5 % (11.5-14.5); WHITE BLOOD COUNT 6.9 x10^3/uL (4.0-11.0)
--- NOTE | 2022-03-05 03:11 | RAD ---
XR CHEST 1V Clinical History: Reason: cough, smoker / Spl. Instructions: / History: Technique: AP view of the chest was obtained at 03/05/2022 2:43 AM. Comparison: None. Findings: The cardiomediastinal silhouette is normal. The pulmonary vasculature is normal. The lungs and pleura l margins are clear. Impression: No evidence of an acute cardiopulmonary process. Electronically signed by: Ray Rhodes III, MD (03/05/2022 3:09 AM) [facility]
[2022-03-05 03:33] LABS: CALCIUM 8.4 mg/dL (8.5-10.1); CREATININE 0.6 mg/dL (0.7-1.3); GFR 146.4; POTASSIUM 3.7 mmol/L (3.5-5.1)
[2022-03-05 03:39] LABS: ALBUMIN 3.9 g/dL (3.4-5.0); TOTAL BILIRUBIN 0.6 mg/dL (0.2-1.0); TOTAL PROTEIN 7.8 g/dL (6.4-8.2)
[2022-03-05 03:40] LABS: ACETAMIN < 2 mcg/ml (10-30); ETHANOL 342 mg/dL (0-10); SALIC 1.5 mg/dL (2.8-20.0)
--- NOTE | 2022-03-05 14:05 | EKG ---
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
[2022-03-05 14:38] LABS: BARBITURATES NEG (NEG); BENZODIAZEPINES NEG (NEG); CANNABINOIDS POS (NEG); COCAINE NEG (NEG); METHADONE NEG (NEG); OPIATES NEG (NEG); PHENCYCLIDINE NEG (NEG)
[2022-03-05 14:41] LABS: BACTERIA,URINE MANY /HPF (0-FEW); RBC,URINE 0 /HPF (0-2)
[2022-03-05 14:45] LABS: WBC,URINE 20-40 /HPF (0-4)
[2022-03-05 14:48] LABS: AMPHETAMINE/METHAMPHETAMINE POS (NEG)
[2022-03-05] MEDS ORDERED: ONDANSETRON PF 4 MG/2 ML VIAL. IVP PRN ×2 (16:30→17:00)
[2022-03-05] MEDS: CEPHALEXIN 250 MG CAPSULE. PO SCH ×2 (16:33→21:43)
[2022-03-05] MEDS ORDERED: DOCUSATE SODIUM 100 MG CAPSULE. PO PRN (17:00)
[2022-03-05] MEDS ORDERED: DEXTROSE 50% 25 GM / 50ML DISP.SYRIN. IV PRN (17:00)
[2022-03-05] MEDS ORDERED: diphenhydrAMINE HCL 25 MG CAPSULE PO PRN ×2 (17:00)
[2022-03-05] MEDS ORDERED: PROCHLORPERAZINE 10 MG/2 ML VIAL. IV PRN (17:00)
[2022-03-05] MEDS ORDERED: cloNIDine HCL 0.1 MG TABLET PO PRN (17:00)
[2022-03-05] MEDS ORDERED: LORazepam 0.5 MG TABLET PO PRN (17:00)
[2022-03-05] MEDS ORDERED: ZOLPIDEM 5 MG TABLET. PO PRN (17:00)
[2022-03-05] MEDS ORDERED: diphenhydrAMINE 50 MG/ML VIAL IVP PRN ×2 (17:00)
[2022-03-05] MEDS ORDERED: HALOPERIDOL LACTATE 5 MG/ML VIAL. IVP PRN (17:00)
[2022-03-05] MEDS ORDERED: SENNOSIDES 8.6 MG TABLET PO PRN (17:00)
[2022-03-05] MEDS ORDERED: LISI10TA16 PO (18:32)
[2022-03-05] MEDS ORDERED: CITA30CA PO (18:32)
[2022-03-05] MEDS ORDERED: QUET25TA3 PO (18:32)
[2022-03-05] MEDS ORDERED: OMEP20TA63 PO (18:32)
[2022-03-05 19:00] VITALS: BP 124/75
[2022-03-05] MEDS: IV NORMAL SALINE 1000ML BAG 1,000 ML IV SCH (19:42)
[2022-03-05] MEDS: THIAMINE INJ 300 MG in IV DEXTROSE 5% 50 ML IV SCH (19:42)
[2022-03-05] MEDS: ENOXAPARIN 40 MG/0.4 ML SYRINGE. SQ SCH (19:43)
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
[2022-03-06 03:00] VITALS: BP 141/92
[2022-03-06] MEDS: IV NORMAL SALINE 1000ML BAG 1,000 ML IV SCH ×2 (04:44→14:42)
[2022-03-06 07:00] VITALS: BP 128/88
[2022-03-06 08:15] LABS: BASO % 1 % (0-3); EOS # 0.1 x10^3/uL (0.0-0.7); EOS % 3 % (0-3); LYMPH # 1.5 x10^3/uL (1.0-4.8); LYMPH % 30 % (24-48); MEAN CORPUSCULAR HEMOGLOBIN 32 pg (25-35); MEAN CORPUSCULAR HGB CONC 35 g/dL (31-37); MEAN CORPUSCULAR VOLUME 92 fL (79-100); MONO # 0.5 x10^3/uL (0.0-1.1); MONO % 10 % (0-9); NEUT # 2.8 x10^3/uL (1.8-7.7); NEUT % 56 % (31-73); PLATELET COUNT 217 x10^3/uL (140-400); RED BLOOD COUNT 4.69 x10^6/uL (4.30-5.70); RED CELL DISTRIBUTION WIDTH 14.4 % (11.5-14.5)
[2022-03-06 08:28] LABS: CREATININE 0.6 mg/dL (0.7-1.3); GFR 146.4; MAGNESIUM 1.6 mg/dL (1.8-2.4); PHOSPHORUS 2.7 mg/dL (2.6-4.7); POTASSIUM 3.8 mmol/L (3.5-5.1)
--- NOTE | 2022-03-06 08:54 | PDOC ---
[facility] PROGRESS NOTE Date of Service DOS: DATE: 03/06/22 TIME: 08:53 Chief Complaint Chief Complaint Acute alcohol intoxication Acute toxic encephalopathy Hypernatremia due to dehydration Mild transaminitis UTI History of Present Illness History of Present Illness 03/06: Afebrile. Magnesium 1.6 today, will replace. Continue treatment of UTI with Keflex. Hyponatremia resolved. He does admit to suicidal ideation but does not have a plan. Will place consultation to PAT team. Admits to history of alcohol withdrawals with seizures. Continue alcohol withdrawal treatment protocol. Vitals/I&O Vitals/I&O: Vital Signs Date Time Temp Pulse Resp B/P (MAP) Pulse Ox O2 Delivery O2 Flow Rate FiO2 03/06/22 07:00 96.8 71 17 128/88 (101) 97 Room Air 96.8 I & O 03/05/22 03/05/22 03/06/22 15:00 23:00 07:00 Intake Total 480 ml 360 ml Output Total 350 ml 325 ml Balance 130 ml 35 ml Physical Exam General: Alert, No acute distress Heart: Regular rate Lungs: Clear Abdomen: Soft Extremities: No clubbing Skin: No rashes Labs Labs: Laboratory Tests Test 03/05/22 13:51 03/05/22 13:55 03/05/22 14:17 03/05/22 18:09 Ethyl Alcohol Level 152 mg/dL (0-10) Glucose (Fingerstick) 96 mg/dL (70-99) 110 mg/dL (70-99) Urine Collection Type Unknown Urine Color (Auto) Light yellow Urine Turbidity Clear Urine pH (Auto) 6.0 (<5.0-8.0) Urine Specific [place] 1.018 (1.000-1.030) Urine Protein (Auto) Negative mg/dL (Negative) Urine Glucose (Auto)(UA) Negative mg/dL (Negative) Urine Ketones (Auto) 40 mg/dL (Negative) Urine Blood (Auto) Negative (Negative) Urine Nitrite (Auto) Positive (Negative) Urine Bilirubin (Auto) Negative (Negative) Urine Urobilinogen (Auto) Normal mg/dL (Normal) Urine Leukocyte Esterase (Auto) Small (Negative) Urine RBC 0 /HPF (0-2) Urine WBC 20-40 /HPF (0-4) Urine Bacteria Many /HPF (0-FEW) Urine Mucus Mod /LPF Urine Opiates Screen Neg (NEG) Urine Methadone Screen Neg (NEG) Urine Barbiturates Neg (NEG) Urine Phencyclidine Screen Neg (NEG) Urine Amphetamine/Methamphetamine Pos (NEG) Urine Benzodiazepines Screen Neg (NEG) Urine Cocaine Screen Neg (NEG) Urine Cannabinoids Screen Pos (NEG) Urine Ethyl Alcohol Pos (NEG) Test 03/05/22 20:47 03/06/22 07:20 Glucose (Fingerstick) 176 mg/dL (70-99) White Blood Count 5.0 x10^3/uL (4.0-11.0) Red Blood Count 4.69 x10^6/uL (4.30-5.70) Hemoglobin 15.0 g/dL (13.0-17.5) Hematocrit 43.0 % (39.0-53.0) Mean Corpuscular Volume 92 fL (79-100) Mean Corpuscular Hemoglobin 32 pg (25-35) Mean Corpuscular Hemoglobin Concent 35 g/dL (31-37) Red Cell Distribution Width 14.4 % (11.5-14.5) Platelet Count 217 x10^3/uL (140-400) Neutrophils (%) (Auto) 56 % (31-73) Lymphocytes (%) (Auto) 30 % (24-48) Monocytes (%) (Auto) 10 % (0-9) Eosinophils (%) (Auto) 3 % (0-3) Basophils (%) (Auto) 1 % (0-3) Neutrophils # (Auto) 2.8 x10^3/uL (1.8-7.7) Lymphocytes # (Auto) 1.5 x10^3/uL (1.0-4.8) Monocytes # (Auto) 0.5 x10^3/uL (0.0-1.1) Eosinophils # (Auto) 0.1 x10^3/uL (0.0-0.7) Basophils # (Auto) 0.0 x10^3/uL (0.0-0.2) Sodium Level 138 mmol/L (136-145) Potassium Level 3.8 mmol/L (3.5-5.1) Chloride Level 102 mmol/L (98-107) Carbon Dioxide Level 25 mmol/L (21-32) Anion Gap 11 (6-14) Blood Urea Nitrogen 15 mg/dL (8-26) Creatinine 0.6 mg/dL (0.7-1.3) Estimated GFR (Cockcroft-Gault) 146.4 Glucose Level 96 mg/dL (70-99) Calcium Level 8.0 mg/dL (8.5-10.1) Phosphorus Level 2.7 mg/dL (2.6-4.7) Magnesium Level 1.6 mg/dL (1.8-2.4) Assessment and Plan Assessmemt and Plan Problems Medical Problems: (1) Alcohol abuse Status: Acute (2) Alcohol intoxication Status: Acute (3) Polysubstance abuse Status: Acute (4) Smoker Status: Acute (5) Suicidal ideation Status: Acute Comment Review of Relevant I have reviewed the following items casi (where applicable) has been applied. Medications: Current Medications Medications (Trade) Dose Ordered Sig/Negin Route PRN Reason Start Time Stop Time Status Last Admin Dose Admin Cephalexin HCl (Keflex) 500 mg QID PO 03/05/22 17:00 03/05/22 21:43 Lorazepam (Ativan) 2 mg Q6H PO 03/05/22 16:30 03/06/22 22:31 03/06/22 04:43 Thiamine HCl 300 mg/Dextrose 53 ml @ 100 mls/hr DAILY IV 03/05/22 18:00 03/09/22 09:32 03/05/22 19:42 Sodium Chloride 1,000 ml @ 100 mls/hr Q10H IV 03/05/22 17:00 03/06/22 04:44 Enoxaparin Sodium (Lovenox 40mg Syringe) 40 mg Q24H SQ 03/05/22 17:00 03/05/22 19:43 Justifications for Admission Other Justification Alcohol intoxication KEVIN IYER MD March 06, 2022 08:54
[2022-03-06] MEDS ORDERED: diazePAM 2 MG TABLET PO PRN (09:00)
[2022-03-06] MEDS ORDERED: DEXTROSE 50% 25 GM / 50ML DISP.SYRIN. IV PRN (09:00)
[2022-03-06] MEDS ORDERED: MAGNESIUM SULFATE 2GM 50 ML IV ONE (09:00)
[2022-03-06] MEDS: CEPHALEXIN 250 MG CAPSULE. PO SCH ×4 (10:48→20:54)
[2022-03-06 10:51] LABS: PLT ESTIMATE ADEQUATE (ADEQUATE)
[2022-03-06] MEDS: LISINOPRIL 10 MG TABLET PO SCH (10:55)
[2022-03-06] MEDS: PANTOPRAZOLE 40 MG TABLET.DR. PO SCH (10:55)
[2022-03-06 11:00] VITALS: BP 148/90
[2022-03-06] MEDS: INSULIN LISPRO 300 UNITS/3 ML VIAL. SQ SCH ×3 (11:52→17:00)
[2022-03-06] MEDS ORDERED: INSULIN LISPRO 300 UNITS/3 ML VIAL. SQ SCH (12:00)
[2022-03-06] MEDS: THIAMINE INJ 300 MG in IV DEXTROSE 5% 50 ML IV SCH (13:06)
[2022-03-06 15:00] VITALS: BP 146/92
--- NOTE | 2022-03-06 15:43 | NUR ---
SS following for discharge planning. SS reviewed pt chart and discussed with pt RN. Pt is from home and is currently on room air. ETOH. PAT team referral made for assessment and recommendations. Pina from PAT team met with pt and cleared. Pt was provided with safety plan and resources. SS will continue to follow for discharge planning.
[2022-03-06] MEDS: ENOXAPARIN 40 MG/0.4 ML SYRINGE. SQ SCH (18:01)
[2022-03-06 20:00] VITALS: BP 130/88
--- NOTE | 2022-03-06 20:20 | NUR ---
Received patient from [address] [place] [address] to room 434 per wheelchair. Assessment completed. VS stable. Denies c/o's at this time. Will continue to monitor.
[2022-03-06] MEDS: QUEtiapine 25 MG TABLET. PO SCH (20:54)
[2022-03-06 23:21] VITALS: BP 120/76
[2022-03-07] MEDS: IV NORMAL SALINE 1000ML BAG 1,000 ML IV SCH ×3 (00:20→22:20)
[2022-03-07 03:06] VITALS: BP 120/76
[2022-03-07 07:00] VITALS: BP 124/79
[2022-03-07 07:41] LABS: BASO % 1 % (0-3); EOS # 0.1 x10^3/uL (0.0-0.7); EOS % 2 % (0-3); HEMATOCRIT 44.7 % (39.0-53.0); HEMOGLOBIN 15.5 g/dL (13.0-17.5); LYMPH # 1.5 x10^3/uL (1.0-4.8); LYMPH % 31 % (24-48); MEAN CORPUSCULAR HEMOGLOBIN 32 pg (25-35); MEAN CORPUSCULAR HGB CONC 35 g/dL (31-37); MEAN CORPUSCULAR VOLUME 92 fL (79-100); MONO # 0.5 x10^3/uL (0.0-1.1); MONO % 10 % (0-9); NEUT # 2.7 x10^3/uL (1.8-7.7); NEUT % 56 % (31-73); PLATELET COUNT 211 x10^3/uL (140-400); RED BLOOD COUNT 4.88 x10^6/uL (4.30-5.70); RED CELL DISTRIBUTION WIDTH 14.4 % (11.5-14.5); WHITE BLOOD COUNT 4.8 x10^3/uL (4.0-11.0)
[2022-03-07 07:58] LABS: CALCIUM 8.1 mg/dL (8.5-10.1); CREATININE 0.5 mg/dL (0.7-1.3); GFR 180.6; MAGNESIUM 1.9 mg/dL (1.8-2.4); POTASSIUM 3.9 mmol/L (3.5-5.1)
[2022-03-07] MEDS: INSULIN LISPRO 300 UNITS/3 ML VIAL. SQ SCH ×3 (08:00→17:00)
[2022-03-07] MEDS: THIAMINE INJ 300 MG in IV DEXTROSE 5% 50 ML IV SCH (08:41)
[2022-03-07] MEDS: PANTOPRAZOLE 40 MG TABLET.DR. PO SCH (08:41)
[2022-03-07] MEDS: CITALOPRAM 10 MG TABLET. PO SCH (08:41)
[2022-03-07] MEDS: LISINOPRIL 10 MG TABLET PO SCH (08:41)
[2022-03-07] MEDS: CEPHALEXIN 250 MG CAPSULE. PO SCH ×4 (08:41→20:06)
--- NOTE | 2022-03-07 09:49 | PDOC ---
[facility] PROGRESS NOTE Date of Service DOS: DATE: 03/07/22 TIME: 09:47 Chief Complaint Chief Complaint Acute alcohol intoxication Acute toxic encephalopathy Hypernatremia due to dehydration Mild transaminitis UTI History of Present Illness History of Present Illness 03/07 Patient evaluated examined at bedside. Resting in bed aggressively. Still some suicidal ideation. PAT team consulted. Continue to monitor for signs of alcohol withdrawal. Electrolytes improved from yesterday. Continue UTI treatment. 03/06: Afebrile. Magnesium 1.6 today, will replace. Continue treatment of UTI with Keflex. Hyponatremia resolved. He does admit to suicidal ideation but does not have a plan. Will place consultation to PAT team. Admits to history of alcohol withdrawals with seizures. Continue alcohol withdrawal treatment protocol. Vitals/I&O Vitals/I&O: Vital Signs Date Time Temp Pulse Resp B/P (MAP) Pulse Ox O2 Delivery O2 Flow Rate FiO2 03/07/22 08:41 74 120/76 03/07/22 07:00 97.7 19 95 Room Air 97.7 I & O 03/06/22 03/06/22 03/07/22 15:00 23:00 07:00 Intake Total 2379 ml 480 ml Output Total 1175 ml 1250 ml 400 ml Balance 1204 ml -1250 ml 80 ml Physical Exam General: Alert, Cooperative, No acute distress Heart: Regular rate Lungs: Clear Abdomen: Soft Extremities: No clubbing Skin: No rashes Labs Labs: Laboratory Tests Test 03/06/22 11:29 03/06/22 17:07 03/06/22 20:47 03/07/22 06:56 Glucose (Fingerstick) 162 mg/dL (70-99) 119 mg/dL (70-99) 163 mg/dL (70-99) White Blood Count 4.8 x10^3/uL (4.0-11.0) Red Blood Count 4.88 x10^6/uL (4.30-5.70) Hemoglobin 15.5 g/dL (13.0-17.5) Hematocrit 44.7 % (39.0-53.0) Mean Corpuscular Volume 92 fL (79-100) Mean Corpuscular Hemoglobin 32 pg (25-35) Mean Corpuscular Hemoglobin Concent 35 g/dL (31-37) Red Cell Distribution Width 14.4 % (11.5-14.5) Platelet Count 211 x10^3/uL (140-400) Neutrophils (%) (Auto) 56 % (31-73) Lymphocytes (%) (Auto) 31 % (24-48) Monocytes (%) (Auto) 10 % (0-9) Eosinophils (%) (Auto) 2 % (0-3) Basophils (%) (Auto) 1 % (0-3) Neutrophils # (Auto) 2.7 x10^3/uL (1.8-7.7) Lymphocytes # (Auto) 1.5 x10^3/uL (1.0-4.8) Monocytes # (Auto) 0.5 x10^3/uL (0.0-1.1) Eosinophils # (Auto) 0.1 x10^3/uL (0.0-0.7) Basophils # (Auto) 0.0 x10^3/uL (0.0-0.2) Sodium Level 139 mmol/L (136-145) Potassium Level 3.9 mmol/L (3.5-5.1) Chloride Level 106 mmol/L (98-107) Carbon Dioxide Level 23 mmol/L (21-32) Anion Gap 10 (6-14) Blood Urea Nitrogen 8 mg/dL (8-26) Creatinine 0.5 mg/dL (0.7-1.3) Estimated GFR (Cockcroft-Gault) 180.6 Glucose Level 113 mg/dL (70-99) Calcium Level 8.1 mg/dL (8.5-10.1) Magnesium Level 1.9 mg/dL (1.8-2.4) Test 03/07/22 08:41 Glucose (Fingerstick) 115 mg/dL (70-99) Assessment and Plan Assessmemt and Plan Problems Medical Problems: (1) Alcohol abuse Status: Acute (2) Alcohol intoxication Status: Acute (3) Polysubstance abuse Status: Acute (4) Smoker Status: Acute (5) Suicidal ideation Status: Acute Comment Review of Relevant I have reviewed the following items casi (where applicable) has been applied. Medications: Current Medications Medications (Trade) Dose Ordered Sig/Negin Route PRN Reason Start Time Stop Time Status Last Admin Dose Admin Insulin Human Lispro (HumaLOG) 0-7 UNITS TIDWMEALS SQ 03/06/22 12:00 03/06/22 13:10 Quetiapine Fumarate (SEROquel) 25 mg HS PO 03/06/22 21:00 03/06/22 20:54 Citalopram Hydrobromide (CeleXA) 30 mg DAILY PO 03/07/22 09:00 03/07/22 08:41 Pantoprazole Sodium (Protonix) 40 mg DAILYAC PO 03/06/22 11:30 03/07/22 08:41 Justifications for Admission Other Justification Alcohol intoxication NATHALY BRIZUELA MD March 07, 2022 09:49
[2022-03-07 11:00] VITALS: BP 143/92
[2022-03-07 15:00] VITALS: BP 122/87
[2022-03-07] MEDS: ENOXAPARIN 40 MG/0.4 ML SYRINGE. SQ SCH (17:40)
[2022-03-07 19:30] VITALS: BP 151/49
[2022-03-07] MEDS: QUEtiapine 25 MG TABLET. PO SCH (20:05)
[2022-03-07] MEDS: LACTOBACILLUS RHAMNOSUS GG 1 CAPSULE. PO SCH (20:06)
[2022-03-07] MEDS: ACETAMINOPHEN 325 MG TABLET. PO PRN (20:06)
[2022-03-07 23:12] VITALS: BP 126/78
[2022-03-08 03:29] VITALS: BP 130/70
[2022-03-08] MEDS: IV NORMAL SALINE 1000ML BAG 1,000 ML IV SCH (05:00)
[2022-03-08 07:00] VITALS: BP 141/95
[2022-03-08 07:49] LABS: BASO % 1 % (0-3); EOS # 0.1 x10^3/uL (0.0-0.7); EOS % 3 % (0-3); HEMATOCRIT 45.4 % (39.0-53.0); HEMOGLOBIN 15.6 g/dL (13.0-17.5); LYMPH # 1.4 x10^3/uL (1.0-4.8); LYMPH % 28 % (24-48); MEAN CORPUSCULAR HEMOGLOBIN 32 pg (25-35); MEAN CORPUSCULAR HGB CONC 35 g/dL (31-37); MEAN CORPUSCULAR VOLUME 92 fL (79-100); MONO # 0.4 x10^3/uL (0.0-1.1); MONO % 7 % (0-9); NEUT # 3.2 x10^3/uL (1.8-7.7); NEUT % 62 % (31-73); PLATELET COUNT 207 x10^3/uL (140-400); RED BLOOD COUNT 4.93 x10^6/uL (4.30-5.70); WHITE BLOOD COUNT 5.2 x10^3/uL (4.0-11.0)
[2022-03-08 07:59] LABS: CALCIUM 8.3 mg/dL (8.5-10.1); CREATININE 0.5 mg/dL (0.7-1.3); GFR 180.6; MAGNESIUM 1.8 mg/dL (1.8-2.4); POTASSIUM 3.5 mmol/L (3.5-5.1)
[2022-03-08] MEDS: INSULIN LISPRO 300 UNITS/3 ML VIAL. SQ SCH ×2 (08:00→12:00)
[2022-03-08] MEDS: LISINOPRIL 10 MG TABLET PO SCH (09:28)
[2022-03-08] MEDS: CITALOPRAM 10 MG TABLET. PO SCH (09:28)
[2022-03-08] MEDS: CEPHALEXIN 250 MG CAPSULE. PO SCH ×2 (09:28→14:55)
[2022-03-08] MEDS: LACTOBACILLUS RHAMNOSUS GG 1 CAPSULE. PO SCH (09:28)
[2022-03-08] MEDS: PANTOPRAZOLE 40 MG TABLET.DR. PO SCH (09:28)
[2022-03-08] MEDS: ACETAMINOPHEN 325 MG TABLET. PO PRN (09:33)
[2022-03-08 11:00] VITALS: BP 140/95
[2022-03-08] MEDS ORDERED: CEPH250C PO (11:07)
--- NOTE | 2022-03-08 11:09 | PDOC3 ---
[facility]-Discharge Summary Date of Admission: Date of Admission: March 06, 2022 Date of Discharge: Date of Discharge: March 08, 2022 Admission Diagnosis: Admitting Diagnosis: SI, UTI, alcohol w/d Hospital Course: Hospital Course: Chief Complaint Acute alcohol intoxication Acute toxic encephalopathy Hypernatremia due to dehydration Mild transaminitis UTI History of Present Illness History of Present Illness 03/08 Patient evaluated examined at bedside. Resting in bed easily awoken. No signs of withdrawal. Denying any further suicidal ideation today. Cleared by PAT team. Discharge home today. >30min spent on d/c. 21min acp 03/07 Patient evaluated examined at bedside. Resting in bed aggressively. Still some suicidal ideation. PAT team consulted. Continue to monitor for signs of alcohol withdrawal. Electrolytes improved from yesterday. Continue UTI treatment. 03/06: Afebrile. Magnesium 1.6 today, will replace. Continue treatment of UTI with Keflex. Hyponatremia resolved. He does admit to suicidal ideation but does not have a plan. Will place consultation to PAT team. Admits to history of alcohol withdrawals with seizures. Continue alcohol withdrawal treatment protocol. Disposition: Disposition/Orders: D/C to Home Activity: Activity: Resume previous activity Diet: Diet: Regular Medications: Home Meds Active Scripts Cephalexin (KEFLEX) 250 Mg Capsule, 500 MG PO QID for uti for 5 Days, #40 CAP Prov:NATHALY BRIZUELA MD 03/08/22 Reported Medications Lisinopril (LISINOPRIL) 10 Mg Tablet, 10 MG PO DAILY for FOR HYPERTENSION, #30 TAB 0 Refills 03/05/22 Omeprazole Magnesium (PRILOSEC OTC) 20 Mg Tablet.dr, 20 MG PO DAILY for gerd, TAB 03/05/22 Citalopram Hydrobromide (Citalopram HBr) 30 Mg Capsule, 30 MG PO DAILY for depression, CAP 03/05/22 Quetiapine Fumarate (QUETIAPINE FUMARATE) 25 Mg Tablet, 25 MG PO HS for insomnia/anxiety, TAB 03/05/22 Diazepam (VALIUM) 2 Mg Tablet, 2 MG PO TID PRN PRN for ANXIETY / AGITATION 09/28/13 Metformin Hcl (METFORMIN HCL) 1,000 Mg Tablet, 1000 MG PO DAILY for diabetes 09/28/13 Discontinued Reported Medications Citalopram Hydrobromide (CELEXA) 20 Mg Tablet, 1 TAB PO DAILY, #90 TAB 3 Refills 07/07/18 Quetiapine Fumarate (SEROQUEL) 100 Mg Tablet, 1 TAB PO QHS, #30 TAB 1 Refill 07/07/18 Scheduled Cephalexin (Keflex), 500 MG PO QID Citalopram Hydrobromide (Citalopram HBr), 30 MG PO DAILY, (Reported) Lisinopril (Lisinopril), 10 MG PO DAILY, (Reported) Metformin Hcl (Metformin Hcl), 1,000 MG PO DAILY, (Reported) Omeprazole Magnesium (Prilosec Otc), 20 MG PO DAILY, (Reported) Quetiapine Fumarate (Quetiapine Fumarate), 25 MG PO HS, (Reported) Scheduled PRN Diazepam (Valium), 2 MG PO TID PRN PRN for ANXIETY / AGITATION, (Reported) Discontinued Medications Citalopram Hydrobromide (Celexa), 1 TAB PO DAILY, (Reported) Discontinued Reason: Prescription changed Quetiapine Fumarate (Seroquel), 1 TAB PO QHS, (Reported) Discontinued Reason: Prescription changed Justicifation of Admission Dx: Justifications for Admission: Justification of Admission Dx: Yes ([place], [place]) NATHALY BRIZUELA MD March 08, 2022 11:09
[2022-03-08] MEDS: THIAMINE INJ 300 MG in IV DEXTROSE 5% 50 ML IV SCH (12:26)
--- NOTE | 2022-03-08 15:33 | NUR ---
Discharge Note: MARTÍN LIN ARAGON Discharge instructions and discharge home medications reviewed with Patient and a copy given. 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 All questions have been answered and understanding verbalized. The following instructions and handouts were given: alcohol intoxication. Discontinued iv line and catheter intact. Patient discharged to home with self-care.
[2022-03-10] MEDS ORDERED: FOLIC ACID 1 MG TABLET. PO SCH (09:00)
[2022-03-10] MEDS ORDERED: MULTIVITAMIN with MINERAL TABLET. PO SCH (09:00)
[2022-03-10] MEDS ORDERED: THIAMINE 100 MG TABLET. PO SCH (09:00)
== END 2022-03-08 15:40 | disposition home or self-care (01) | DRG 640 ==
LOC: ER 02:06 → MERGE 02:06 → 5 NORTH 16:15 → OBSVTOIN 03-06 10:41 → 4 NORTH 03-06 20:20
PROVIDERS: ADMIT Internal Medicine; ATTEND Internal Medicine
DX: E87.0 Hyperosmolality and hypernatremia (principal); G92.9 Unspecified toxic encephalopathy; N39.0 Urinary tract infection, site not specified; R45.851 Suicidal ideations; E87.1 Hypo-osmolality and hyponatremia; E86.0 Dehydration; E11.9 Type 2 diabetes mellitus without complications; F10.229 Alcohol dependence with intoxication, unspecified; F15.10 Other stimulant abuse, uncomplicated; F17.200 Nicotine dependence, unspecified, uncomplicated; I10 Essential (primary) hypertension; Z90.49 Acquired absence of other specified parts of digestive tract; F32.A Depression, unspecified; F41.9 Anxiety disorder, unspecified; Z20.822 Contact with and (suspected) exposure to COVID-19; Z88.8 Allergy status to other drugs, medicaments and biological substances
CPT/HCPCS: 36415; 71045; 80048; 80053; 80307; 80329; 81001; 82962; 83690; 83735; 84100; 85025; 87426; 93005; 94640; G0378; G0379; G0480; J1650; J1815; J3411; J3475; J7030; J7060; U0003; 99285-25